=== PATIENT | female | born 1955 | race Caucasian/White ===

== ENCOUNTER → 2020-09-09 10:45 | Outpatient (BNVA) | payer MEDICARE, MEDICAID, SELFPAY | PROVIDERS: PCP Internal Medicine; Referring Provider Internal Medicine; Visit Provider Internal Medicine Endocrinology, Diabetes & Metabolism | DX: Z13.89 Encounter for screening for other disorder (principal) | CPT/HCPCS: Q3014 ==

== ENCOUNTER → 2020-12-20 09:26 | Outpatient (BNVA) | payer MEDICARE, MEDICAID, SELFPAY | PROVIDERS: PCP Internal Medicine; Visit Provider Internal Medicine Endocrinology, Diabetes & Metabolism | DX: Z13.89 Encounter for screening for other disorder (principal) | CPT/HCPCS: Q3014 ==

== ENCOUNTER 2021-01-05 08:03 | Outpatient (REF) | payer MEDICARE, MEDICAID, SELFPAY ==
[2021-01-05 10:17] LABS: Hematocrit 44.6 % (37-47); Hemoglobin 14.7 g/dl (12.0-16.0); Mean Corpuscular Hemoglobin 30.6 pg (27.0-33.0); Mean Corpuscular Volume 92.9 fL (80-98); Mean Platelet Volume 10.8 fL (9.4-12.3); Platelet Count 181 X10*3/uL (160-400); Red Cell Distribution Width 12.8 % (11.0-16.0); White Blood Count 5.5 X10*3/uL (4.8-10.8)
[2021-01-05 10:35] LABS: Estimated Average Glucose 151 mg/dL; Hemoglobin A1c % 6.9 %
[2021-01-05 10:49] LABS: Creatinine Urine 75.55 mg/dL; Microalbum/Creatinine Ratio Ur 9.2 ug/mg cr
[2021-01-05 10:57] LABS: Alanine Aminotransferase 38 U/L (0-31); Albumin Level 4.2 g/dL (3.5-5.0); Alkaline Phosphatase 102 U/L (39-117); Anion Gap 16 (12-20); Aspartate Amino Transferase 22 U/L (5-31); Bilirubin Total 0.4 mg/dL (0.0-1.0); Blood Urea Nitrogen 18 mg/dL (9-16); Calcium 8.8 mg/dL (8.4-10.2); Carbon Dioxide 25 mmol/L (22-29); Chloride 101 mmol/L (96-108); Cholesterol 175 mg/dL; Estimated Glomerular Filt Rate > 60; Glucose Fasting 141 mg/dL (60-99); HDL Cholesterol 53 mg/dL; LDL Cholesterol Calculated 98 mg/dl; Potassium 3.9 mmol/L (3.3-5.1); Sodium 138 mmol/L (135-145); Total Protein 6.7 g/dL (6.5-8.0); Triglycerides 120 mg/dL
[2021-01-05 11:40] LABS: Vitamin B12 466 pg/mL (200-900)
[2021-01-06 05:01] LABS: LDL Cholesterol Direct 104 mg/dL (<100)
== END 2021-01-05 08:04 | disposition home or self-care (01) ==
LOC: HO.10HDL 08:03
PROVIDERS: Visit Provider Internal Medicine Endocrinology, Diabetes & Metabolism
DX: E11.65 Type 2 diabetes mellitus with hyperglycemia (principal)
CPT/HCPCS: 36415; 80053; 80061; 82043; 82607; 83036; 83721; 84439; 84443; 85027

== ENCOUNTER → 2021-04-25 14:18 | Outpatient (BNVA) | payer MEDICARE, MEDICAID, SELFPAY | PROVIDERS: PCP Internal Medicine; Visit Provider Internal Medicine Endocrinology, Diabetes & Metabolism | DX: E11.65 Type 2 diabetes mellitus with hyperglycemia (principal); E11.42 Type 2 diabetes mellitus with diabetic polyneuropathy; E11.21 Type 2 diabetes mellitus with diabetic nephropathy; E03.9 Hypothyroidism, unspecified; E78.5 Hyperlipidemia, unspecified; E66.3 Overweight; Z79.4 Long term (current) use of insulin | CPT/HCPCS: 82947; 99212 ==

== ENCOUNTER → 2021-07-04 15:21 | Outpatient (BNVA) | payer MEDICARE, MEDICAID, SELFPAY | PROVIDERS: PCP Internal Medicine; Visit Provider Anesthesiology | DX: M47.816 Spondylosis without myelopathy or radiculopathy, lumbar region (principal); M46.1 Sacroiliitis, not elsewhere classified | CPT/HCPCS: 99212 ==

== ENCOUNTER → 2021-08-30 10:23 | Outpatient (BNVA) | payer MEDICARE, MEDICAID, SELFPAY | PROVIDERS: PCP Internal Medicine; Visit Provider Nurse Practitioner Gerontology | DX: E11.65 Type 2 diabetes mellitus with hyperglycemia (principal); E11.42 Type 2 diabetes mellitus with diabetic polyneuropathy; E11.21 Type 2 diabetes mellitus with diabetic nephropathy; E03.9 Hypothyroidism, unspecified; E78.5 Hyperlipidemia, unspecified; E66.3 Overweight; Z79.4 Long term (current) use of insulin | CPT/HCPCS: 82947; 83036; 99212 ==

== ENCOUNTER 2021-09-12 12:21 | Outpatient (REF) | payer MEDICARE, MEDICAID, SELFPAY ==
[2021-09-12 14:26] LABS: Alanine Aminotransferase 31 U/L (0-31); Albumin Level 4.5 g/dL (3.5-5.0); Alkaline Phosphatase 100 U/L (39-117); Anion Gap 13 (12-20); Aspartate Amino Transferase 23 U/L (5-31); Bilirubin Total 0.4 mg/dL (0.0-1.0); Blood Urea Nitrogen 15 mg/dL (9-16); Calcium 10.2 mg/dL (8.4-10.2); Carbon Dioxide 31 mmol/L (22-29); Chloride 102 mmol/L (96-108); Estimated Glomerular Filt Rate > 60; Glucose Random 141 mg/dL (60-115); Potassium 3.6 mmol/L (3.3-5.1); Sodium 142 mmol/L (135-145); Total Protein 7.4 g/dL (6.5-8.0)
== END 2021-09-12 12:22 | disposition home or self-care (01) ==
LOC: HO.LAB 12:21
PROVIDERS: PCP Internal Medicine; Visit Provider Nurse Practitioner Family
DX: M47.816 Spondylosis without myelopathy or radiculopathy, lumbar region (principal)
CPT/HCPCS: 36415; 80053; 99212

== ENCOUNTER → 2021-12-14 14:30 | Outpatient (BNVA) | payer MEDICARE, MEDICAID, SELFPAY | PROVIDERS: PCP Internal Medicine; Visit Provider Nurse Practitioner Gerontology | DX: E11.65 Type 2 diabetes mellitus with hyperglycemia (principal); E11.21 Type 2 diabetes mellitus with diabetic nephropathy; E11.42 Type 2 diabetes mellitus with diabetic polyneuropathy; E03.9 Hypothyroidism, unspecified; E78.5 Hyperlipidemia, unspecified; E66.3 Overweight; Z68.27 Body mass index [BMI] 27.0-27.9, adult; Z79.4 Long term (current) use of insulin; Z79.899 Other long term (current) drug therapy | CPT/HCPCS: 82947; 83036; 99212 ==

== ENCOUNTER 2022-09-15 08:25 | Outpatient (REF) | payer MEDICARE, MEDICAID, SELFPAY ==
[2022-09-15 12:20] LABS: Creatinine Urine 77.51 mg/dL; Microalbum/Creatinine Ratio Ur 11.6 ug/mg cr
[2022-09-15 13:33] LABS: Alanine Aminotransferase 31 U/L (0-31); Albumin Level 4.3 g/dL (3.5-5.0); Alkaline Phosphatase 89 U/L (39-117); Anion Gap 12 (12-20); Aspartate Amino Transferase 25 U/L (5-31); Bilirubin Total 0.3 mg/dL (0.0-1.0); Blood Urea Nitrogen 13 mg/dL (9-16); Calcium 9.1 mg/dL (8.4-10.2); Carbon Dioxide 28 mmol/L (22-29); Chloride 103 mmol/L (96-108); Cholesterol 149 mg/dL; Estimated Glomerular Filt Rate > 60; Free T4 (Free Thyroxine) 0.91 ng/dL (0.71-1.85); Glucose Fasting 139 mg/dL (60-99); Glucose Random 139 mg/dL (60-115); HDL Cholesterol 56 mg/dL; LDL Cholesterol Calculated 82 mg/dl; Potassium 3.8 mmol/L (3.3-5.1); Sodium 139 mmol/L (135-145); Thyroid Stimulating Hormone 0.43 uIU/mL (0.32-4.0); Total Protein 6.9 g/dL (6.5-8.0); Triglycerides 55 mg/dL
[2022-09-16 18:14] LABS: LDL Cholesterol Direct 78 mg/dL (<100)
== END 2022-09-15 08:26 | disposition home or self-care (01) ==
LOC: HO.HMGCLDS 08:25
PROVIDERS: Absent Provider Nurse Practitioner Family; PCP Internal Medicine; Visit Provider Nurse Practitioner Gerontology
DX: E11.42 Type 2 diabetes mellitus with diabetic polyneuropathy (principal); E11.65 Type 2 diabetes mellitus with hyperglycemia; M47.816 Spondylosis without myelopathy or radiculopathy, lumbar region
CPT/HCPCS: 36415; 80053; 80061; 82043; 83721; 84439; 84443

== ENCOUNTER → 2022-09-18 13:48 | Outpatient (BNVA) | payer MEDICARE, MEDICAID, SELFPAY | PROVIDERS: PCP Internal Medicine; Visit Provider Nurse Practitioner Family | DX: M47.816 Spondylosis without myelopathy or radiculopathy, lumbar region (principal); M79.641 Pain in right hand; M79.642 Pain in left hand; M25.50 Pain in unspecified joint; E03.9 Hypothyroidism, unspecified; Z79.899 Other long term (current) drug therapy | CPT/HCPCS: 99212 ==

== ENCOUNTER 2023-03-12 16:01 | Emergency (ER) | payer MEDICARE, MEDICAID, SELFPAY ==
--- NOTE | ~2023-03-12 | XR_ITS ---
EXAMINATION: Lumbar spine, sacrum and coccyx x-rays CLINICAL INFORMATION: Fall. Rule out fracture COMPARISON: Lumbar spine MRI January 2018 TECHNIQUE: 3 views of the lumbar spine and 3 views of the sacrum and coccyx FINDINGS: Lumbar spine: There is a moderate age-indeterminate T12 vertebral body compression fracture. This is new in the interval from 2018 exam. No other fracture. Normal disc spaces. Lower lumbar spine facet arthritis. Atherosclerotic disease. Sacrum and coccyx: No fracture or dislocation. Mild arthritis at the sacroiliac joints. XR/XR sacrum coccyx min 2V IMPRESSION: Lumbar spine: Moderate age indeterminate T12 vertebral body compression fracture. Degenerative changes. Sacrum and coccyx: Degenerative changes of the sacroiliac joints. No fracture.
--- NOTE | ~2023-03-12 | CT_ITS ---
EXAMINATION: CT HEAD WITHOUT CONTRAST CT CERVICAL SPINE WITHOUT CONTRAST CLINICAL INFORMATION: Fall. COMPARISON: Head CT dated 03/23/2017. TECHNIQUE: Contiguous axial imaging was performed from the skullbase to vertex without intravenous administration of contrast. Multidetector helical imaging was performed through the cervical spine. This CT examination was performed using dose optimization techniques as appropriate, variously including the following: *Automated exposure control *Adjustment of mA and/or kV according to patient size (this includes techniques or standardized protocols for targeted exams where dose is matched to indication/reason for exam; i.e. extremities or head) *Use of iterative reconstruction technique DLP: 949 mGy-cm. FINDINGS: HEAD: There is no evidence of acute intracranial hemorrhage or territorial infarction. No abnormal mass effect or midline shift is seen. Benitez to white matter differentiation is well preserved. No extra-axial fluid collections are identified. Mild chronic white matter microangiopathic changes noted. [id number] generalized parenchymal volume loss noted with concordant ex vacuo prominence of the ventricles. No evidence of hydrocephalus. The osseous structures and soft tissues are normal. The mastoid air cells are well aerated. Moderate mucosal thickening and fluid noted in the left sphenoid sinus. CERVICAL SPINE: No acute fracture or significant subluxation is identified in the cervical spine. There is severe disc space narrowing and bulky endplate spurring at the C4-C5 level. Exuberant left-sided facet arthrosis is visible at the C3-C4 and C4-C5 levels with severe left foraminal encroachment. Endplate spurring and facet arthrosis result in severe right foraminal narrowing at the C4-C5 and C5-C6 and C6-C7 levels. Generalized bony demineralization noted. The atlantoaxial articulation is normally maintained. The paraspinal soft tissues are normal. Subpleural scarring noted at the lung apices with mild emphysematous changes. CT/CT cervical spine wo IV con IMPRESSION: 1. No acute intracranial pathology. 2. No evidence of acute cervical spine traumatic injury. Multilevel cervical spondylosis with hypertrophic facet arthropathy and disc-osteophyte complexes, most significant at the C4-C5 level.
--- NOTE | ~2023-03-12 | XR_ITS ---
EXAMINATION: Lumbar spine, sacrum and coccyx x-rays CLINICAL INFORMATION: Fall. Rule out fracture COMPARISON: Lumbar spine MRI January 2018 TECHNIQUE: 3 views of the lumbar spine and 3 views of the sacrum and coccyx FINDINGS: Lumbar spine: There is a moderate age-indeterminate T12 vertebral body compression fracture. This is new in the interval from 2018 exam. No other fracture. Normal disc spaces. Lower lumbar spine facet arthritis. Atherosclerotic disease. Sacrum and coccyx: No fracture or dislocation. Mild arthritis at the sacroiliac joints. XR/XR lumbar spine 2-3V IMPRESSION: Lumbar spine: Moderate age indeterminate T12 vertebral body compression fracture. Degenerative changes. Sacrum and coccyx: Degenerative changes of the sacroiliac joints. No fracture.
[2023-03-12 16:05] VITALS: BP 130/72; PULSE 98; O2SAT 98
[2023-03-12 17:49] VITALS: BP 105/54; PULSE 85; RESP 16; TEMP 35.9; O2SAT 94; BMI 23.3
--- NOTE | 2023-03-12 17:50 | ED.FALL ---
HPI - Fall General Chief Complaint: Fall Stated Complaint: fall Time Seen by Provider: 03/13/23 01:01 Source: patient Mode of arrival: ambulatory Limitations: no limitations History of Present Illness HPI Narrative: Patient has history of chronic back pain depression diabetes apparently slipped and fell 3 days ago since then having more back pain also has history of T12 compression fracture stable no significant head injury no loss of consciousness patient has been having pain which is not getting better for last 3 days no radiation of pain to lower extremities no bladder or bowel involvement no weakness Related Data Home Medications Medication Instructions Recorded Confirmed allopurinol 300 mg tablet 300 mg PO DAILY 07/29/20 01/31/23 hydrochlorothiazide 12.5 mg tablet 12.5 mg PO DAILY 07/29/20 01/31/23 oxcarbazepine 300 mg tablet 600 mg PO DAILY 08/30/21 01/31/23 zolpidem 12.5 mg tablet,extended 12.5 mg PO 08/30/21 01/31/23 release,multiphase venlafaxine 75 mg capsule,extended 150 mg PO BEDTIME 09/18/22 01/31/23 release 24 hr quetiapine 25 mg tablet (Seroquel) 25 mg PO BEDTIME 01/31/23 01/31/23 Previous Rx's Medication Instructions Recorded pen needle, diabetic 32 gauge x #100 ea 05/17/22 (BD Mar 2nd Gen Pen Needle) FreeStyle Lite Strips (blood sugar #300 ea 09/08/22 diagnostic) empagliflozin 25 mg tablet 25 mg PO DAILY 90 days #90 tabs 02/19/23 (Jardiance) gabapentin 300 mg capsule 300 mg PO Q8H 90 days #270 caps 02/20/23 levothyroxine 88 mcg tablet 88 mcg PO DAILY #90 tabs 02/20/23 lisinopril 2.5 mg tablet 2.5 mg PO DAILY 90 days #90 tabs 02/20/23 dulaglutide 3 mg/0.5 mL 3 mg (0.5 mL) subcut QWEEK 90 days 02/28/23 subcutaneous pen injector #6.5 mL (Trulicity) baclofen 20 mg tablet 20 mg PO BID muscle spasm #180 tabs 03/05/23 insulin glargine 100 unit/mL (3 28 unit (0.28 mL) subcut ONCE 90 03/10/23 mL) subcutaneous pen days #25.2 mL rosuvastatin 40 mg tablet 40 mg PO DAILY 90 days #90 tabs 03/12/23 cyclobenzaprine 10 mg tablet 10 mg PO Q8H #20 tabs 03/13/23 tramadol 50 mg tablet 50 mg PO Q6H PRN pain #20 tabs 03/13/23 Allergies Allergy/AdvReac Type Severity Reaction Status Date / Time metformin [METFORMIN] Allergy Severe BLOATING,DIARRHEA, Verified 01/31/23 12:51 diarrhea Fluoxetine Allergy Intermediate Diarrhea Verified 01/31/23 12:51 saxagliptin [Onglyza] Allergy Intermediate Diarrhea Verified 01/31/23 12:51 sitagliptin [Janumet XR] Allergy Intermediate Diarrhea Verified 01/31/23 12:51 bee sting Allergy Intermediate Swelling Uncoded 01/31/23 12:51 Review of Systems Review of Systems: Yes all other systems are reviewed and are negative PMF Past Medical History Medical History Depression, major, recurrent, moderate Diabetes mellitus Diabetes type 2, uncontrolled Diabetic nephropathy associated with type 2 diabetes mellitus Diabetic neuropathy associated with type 2 diabetes mellitus Dyslipidemia Hypothyroidism halfway (current) use of insulin Overweight (BMI 25.0-29.9) Renal calculi Sacroiliitis Spondylosis of lumbar spine Surgical History Hx of section Family History Family History Father Cancer Mother Cancer Paternal Grandmother Diabetes Brother Mental health disorder Social History Social History Household Members: None Housing: Apartment Alcohol intake: current Alcohol intake frequency: does not drink Patient Tobacco Use Status: Former Tobacco user Cigarettes Per Day: 20 Years Smoked: 20 Smoked in Last 30 Days: No e-Cigarette/Vaping Use: Never Used Use of substances other than those prescribed or required for medical reasons: No Substance Use Type: Former Substance User and Marijuana Advance Directives: No Advance Directives Information Provided: Yes service: No Current occupational status: retired Cognitive needs: No Hearing needs: No Vision needs: Yes Physical Exam Vital Signs: Vital Signs: Last Vital Signs Temp 96.6 F L 03/12/23 17:49 Pulse 85 03/13/23 01:39 Resp 14 03/13/23 01:39 BP 120/63 03/13/23 01:39 Pulse Ox 94 03/12/23 17:49 O2 Del Method Room Air 03/12/23 17:49 BMI result Body Mass Index 23.3 Appearance: Alert. Oriented X3. No acute distress. Eyes: PERRLA, No Nystagmus HEENT: Pharynx normal. Oral Mucosa moist atraumatic normocephalic Neck: Normal inspection. Neck supple. No midline tenderness CVS: Normal heart rate and rhythm. Pulses normal. Respiratory: No respiratory distress. Equal air entry bilateral, no wheezing/rales/rhonchi Abdomen: Soft and nontender. Bowel sounds are present, no mass palpable, no CVA tenderness Skin: Skin warm and dry. Normal skin color. Normal skin turgor. Extremities: No lower extremity edema. No calf tenderness back: Diffuse tenderness lumbar spine and sacroiliac area no focal spinal tenderness sacral sensations intact SLR negative bilaterally Neuro: Oriented X 3. No motor deficit. No sensory deficit.No cerebellar signs , cranial nerves II-XII intact Course Course Course Narrative: Patient complains of low back pain after a fall 3 days ago, she slipped on the wet floor , she tried to stand up and thinks she passed out, she did hit her head, she is not sure if she passed out, her main complaint is neck pain and back pain Her main complaint now is pain she has no chest pain no palpitations Lumbar spine x-rays ordered, cervical spine and head CT, as she is not sure if she passed out EKG and labs are ordered This is rapid medical exam in triage, pending full evaluation by provider in the department Medications Administered Discontinued Medications Generic Name Dose Route Start Last Admin Trade Name Freq PRN Reason Stop Dose Admin Cyclobenzaprine HCl 10 mg 03/13/23 01:25 03/13/23 01:43 Cyclobenzaprine Hcl 10 Mg Tablet PO 03/13/23 01:26 10 mg ONCE ONE Administration Hydromorphone HCl 1 mg 03/13/23 01:25 03/13/23 01:43 Hydromorphone Hcl 2 Mg Tablet PO 03/13/23 01:26 1 mg ONCE ONE Administration Medical Decision Making Medical Decision Making [facility] Narrative: Patient's CT scan of the head and C-spine negative x-ray of lumbar spine and sacroiliac area also negative will give her pain medication and muscle relaxants patient does have old compression fracture T2 Lab Data [facility] Lab Attestation statement: I reviewed the patient's lab results. 03/12/23 19:20 03/12/23 19:20 Labs: Lab Results 03/12/23 03/12/23 03/12/23 Range/Units 19:20 19:20 19:20 WBC 5.8 (4.8-10.8) X10*3/uL RBC 5.32 (4.20-5.50) X10*6/uL Hgb 15.6 (12.0-16.0) g/dl Hct 48.1 H (37.0-47.0) % MCV 90.4 (80.0-98.0) fL MCH 29.3 (27.0-33.0) pg MCHC 32.4 (31.0-35.0) g/dl RDW 13.0 (11.0-16.0) % Plt Count 201 (160-400) X10*3/uL MPV 9.9 (9.4-12.3) fL Immature Gran % (Auto) 0.3 (0.0-0.4) % Neut % (Auto) 63.7 (45-73) % Lymph % (Auto) 23.5 (20-40) % Walsh % (Auto) 10.0 (2-11) % Eos % (Auto) 2.2 (0-4) % Baso % (Auto) 0.3 (0-2) % Lymph # (Auto) 1.4 (1.2-4.9) X10*3/uL Walsh # (Auto) 0.6 (0.1-1.2) X10*3/uL Eos # (Auto) 0.1 (0.0-0.4) X10*3/uL Baso # (Auto) 0.0 (0.0-0.2) X10*3/uL Abs Immat Gran (auto) 0.02 (0.00-0.03) X10*3/uL Absolute Neuts (auto) 3.7 (2.0-8.3) x10*3/uL Absolute Nucleated RBC 0.000 (0.0-0.012) X10*3/uL Nucleated RBC % (auto) 0.0 (0.0-0.2) /100WBC Sodium 143 (135-145) mmol/L Potassium 4.2 (3.3-5.1) mmol/L Chloride 103 (96-108) mmol/L Carbon Dioxide 32 H (22-29) mmol/L Anion Gap 12 (12-20) BUN 15 (9-16) mg/dL Creatinine 0.68 (0.5-1.4) mg/dL Estim Creat Clear Calc 72.2 Estimated GFR > 60 Random Glucose 128 H (60-115) mg/dL Calcium 10.2 D (8.4-10.2) mg/dL Troponin I High Sens < 2.7 (<3.5-17.0) ng/L Discharge Plan Discharge Clinical Impression: Back pain due to injury Patient Disposition: Home, Self-Care Instructions: Acute Low Back Pain (ED) Additional Instructions: No fracture in lumbar and sacrum seen Pain medication as prescribed Follow with PCP if not better Prescriptions: New cyclobenzaprine 10 mg tablet 10 mg PO Q8H Qty: 20 0RF tramadol 50 mg tablet 50 mg PO Q6H PRN (Reason: pain) Qty: 20 0RF No Action (DME) pen needle, diabetic [BD Mar 2nd Gen Pen Needle] 32 gauge x 5/32 needle See Rx Instructions .MEDSUPPLY Qty: 100 4RF Rx Instructions: once a day (DME) FreeStyle Lite Strips Strip See Rx Instructions .ROUTE .MEDSUPPLY Qty: 300 2RF Rx Instructions: 3 times a day Jardiance 25 mg tablet 25 mg PO DAILY 90 Days Qty: 90 0RF levothyroxine 88 mcg tablet 88 mcg PO DAILY Qty: 90 0RF gabapentin 300 mg capsule 300 mg PO Q8H 90 Days Qty: 270 0RF lisinopril 2.5 mg tablet 2.5 mg PO DAILY 90 Days Qty: 90 0RF Trulicity 3 mg/0.5 mL pen injector 3 mg subcut QWEEK 90 Days Qty: 6.5 1RF Rx Instructions: FUTURE REFILLS WITH PCP. baclofen 20 mg tablet 20 mg PO BID Qty: 180 0RF insulin glargine 100 unit/mL (3 mL) insulin pen 28 unit subcut ONCE 90 Days Qty: 25.2 3RF rosuvastatin 40 mg tablet 40 mg PO DAILY 90 Days Qty: 90 1RF quetiapine [Seroquel] 25 mg tablet 25 mg PO BEDTIME hydrochlorothiazide 12.5 mg tablet 12.5 mg PO DAILY allopurinol 300 mg tablet 300 mg PO DAILY zolpidem 12.5 mg tablet,ext release multiphase 12.5 mg PO oxcarbazepine 300 mg tablet 600 mg PO DAILY venlafaxine 75 mg capsule,extended release 24hr 150 mg PO BEDTIME
--- NOTE | 2023-03-12 17:56 | ECG_ITS ---
Test Reason : BACK PAIN Blood Pressure : / mmHG Vent. Rate : 078 BPM Atrial Rate : 078 BPM P-R Int : 172 ms QRS Dur : 096 ms QT Int : 384 ms P-R-T Axes : 056 015 060 degrees QTc Int : 437 ms Normal sinus rhythm Normal ECG When compared with ECG of 28-MAR-2017 12:50, No significant change was found Referred By: Jovani Pedroza Electronically Signed By:Pedrito Overton
[2023-03-12 19:27] LABS: MANUAL DIFF FLAG NO
[2023-03-12 19:29] LABS: Basophils Percent Auto 0.3 % (0-2); Eosinophils Absolute Auto 0.1 X10*3/uL (0.0-0.4); Eosinophils Percent Auto 2.2 % (0-4); Hematocrit 48.1 % (37.0-47.0); Hemoglobin 15.6 g/dl (12.0-16.0); Imm Gran Abs Auto 0.02 X10*3/uL (0.00-0.03); Imm Gran Pct Auto 0.3 % (0.0-0.4); Lymphocytes Absolute Auto 1.4 X10*3/uL (1.2-4.9); Lymphocytes Percent Auto 23.5 % (20-40); Mean Corpuscular HGB Conc 32.4 g/dl (31.0-35.0); Mean Corpuscular Hemoglobin 29.3 pg (27.0-33.0); Mean Corpuscular Volume 90.4 fL (80.0-98.0); Mean Platelet Volume 9.9 fL (9.4-12.3); Monocytes Absolute Auto 0.6 X10*3/uL (0.1-1.2); Neutrophils Absolute Auto 3.7 x10*3/uL (2.0-8.3); Neutrophils Percent Auto 63.7 % (45-73); Platelet Count 201 X10*3/uL (160-400); Red Blood Count 5.32 X10*6/uL (4.20-5.50); White Blood Count 5.8 X10*3/uL (4.8-10.8)
[2023-03-12 19:53] LABS: Anion Gap 12 (12-20); Blood Urea Nitrogen 15 mg/dL (9-16); Calcium 10.2 mg/dL (8.4-10.2); Carbon Dioxide 32 mmol/L (22-29); Chloride 103 mmol/L (96-108); Creatinine Clr Calc Pharmacy 72.2; Estimated Glomerular Filt Rate > 60; Glucose Random 128 mg/dL (60-115); Potassium 4.2 mmol/L (3.3-5.1); Sodium 143 mmol/L (135-145)
[2023-03-12 20:19] LABS: Troponin-I High Sensitivity < 2.7 ng/L (<3.5-17.0)
[2023-03-13 01:39] VITALS: BP 120/63; PULSE 85; RESP 14
[2023-03-13] MEDS: Cyclobenzaprine HCl 10 MG TABLET PO (01:43)
[2023-03-13] MEDS: HYDROmorphone HCl 2 MG TABLET 1 MG PO (01:43)
[2023-03-13 03:33] VITALS: BP 136/67; PULSE 78; RESP 18; TEMP 36.3; O2SAT 94
[2023-03-13 04:56] LABS: Appearance Urine Clear; Color Urine Yellow; Glucose Urine UA >=1000 mg/dL (Negative); Leukocyte Esterase Urine Negative (Negative); Nitrite Urine Negative (Negative); PH 5.5 (5.0-9.0); Specific Gravity - Urine >= 1.030 (1.005-1.025); UMIC TRIGGER UACC YES; Urine Blood Negative (Negative); Urine Ketones Negative (Negative); Urine Protein Negative (Neg-Trace)
[2023-03-13 05:01] LABS: Bacteria Urine None Seen (None Seen); Hyaline Casts Urine 0-2 /LPF (0-2); RBC Urine 0-2 /HPF (0-2); Squamous Epithelial Cell Urine 0-2 /HPF (0-2); WBC Urine 0-5 /HPF (0-5)
[2023-03-13] MEDS: Acetaminophen 325 MG TABLET 975 MG PO (05:48)
== END 2023-03-13 06:00 | disposition home or self-care (01) ==
PROVIDERS: Emergency Medicine Emergency Medical Services; Physician Assistant Medical; Emergency Provider Internal Medicine; PCP Internal Medicine
DX: G89.11 Acute pain due to trauma (principal); M54.50 Low back pain, unspecified; E11.9 Type 2 diabetes mellitus without complications; Z79.4 Long term (current) use of insulin
CPT/HCPCS: 36415; 70450; 72100; 72125; 72220; 80048; 81001; 84484; 85025; 93005; 99284; 99285

== ENCOUNTER 2023-09-18 11:54 | Outpatient (REF) | payer MEDICARE, MEDICAID, SELFPAY ==
[2023-09-18 13:12] LABS: C Reactive Protein 0.13 mg/dL (< or = 0.50)
[2023-09-18 13:20] LABS: Erythrocyte Sedimentation Rate 21 MM/HR (0-20)
== END 2023-09-18 11:55 | disposition home or self-care (01) ==
LOC: HO.LAB 11:54
PROVIDERS: Nurse Practitioner Family; PCP Internal Medicine; Visit Provider Internal Medicine
DX: M25.50 Pain in unspecified joint (principal)
CPT/HCPCS: 36415; 85652; 86140; 99212

== ENCOUNTER 2023-09-18 13:42 | Outpatient (AMB) | payer MEDICARE, MEDICAID, SELFPAY ==
--- NOTE | 2023-09-18 13:45 | A.OFFVIS_ITS ---
Intake Vital Signs 09/18/23 13:53 Height 5 ft 5 in Weight 150 lb 12.739 oz BMI 25.1 BP 118/62 Blood Pressure Location Rt brachial Position Sitting Pulse 64 Pulse Source Pulse Oximeter Temp 97 F Temp Source Skin Pulse Oximetry (%) 96 Oxygen Delivery Method Room Air Intake Visit Reasons: Back pain Intake Note: Patient last seen 09/18/22, presents today for yearly follow up and test results. Reportsmultiple joint pains. Senior Regulatory Affairs Specialist Required: No Accompanied by: Self / Same As Patient Allergies metformin [METFORMIN] Allergy (Severe, Verified 09/18/23 13:46) BLOATING,DIARRHEA, diarrhea Fluoxetine Allergy (Intermediate, Verified 09/18/23 13:46) Diarrhea saxagliptin [Onglyza] Allergy (Intermediate, Verified 09/18/23 13:46) Diarrhea sitagliptin [Janumet XR] Allergy (Intermediate, Verified 09/18/23 13:46) Diarrhea bee sting Allergy (Intermediate, Uncoded 09/18/23 13:46) Swelling Medication List - Last Reconciled 09/18/23 by Radha Garcia MD allopurinol 300 mg PO DAILY baclofen 20 mg PO BID blood sugar diagnostic (FreeStyle Lite Strips) 3 TIMES A DAY dulaglutide (Trulicity) 3 mg (0.5 mL) subcut QWEEK 90 days empagliflozin (Jardiance) 25 mg PO DAILY 90 days gabapentin 300 mg PO Q8H 90 days hydrochlorothiazide 12.5 mg PO DAILY insulin degludec 28 units (0.14 mL) subcut BEDTIME 90 days insulin glargine 28 units (0.28 mL) subcut ONCE 90 days levothyroxine 88 mcg PO DAILY lisinopril 2.5 mg PO DAILY 90 days oxcarbazepine 600 mg PO DAILY pen needle, diabetic (BD Mar 2nd Gen Pen Needle) once a day quetiapine (Seroquel) 25 mg PO BEDTIME rosuvastatin 40 mg PO DAILY 90 days venlafaxine ER 150 mg PO BEDTIME zolpidem ER 12.5 mg PO HPI HPI Comments History of Present Illness Details This is a 68-year-old female with generalized osteoarthritis who presents for follow-up. She was last seen by Rika Mckeon September/2022. She states that she continues to have diffuse pain, everywhere, in her back, knees, hands. She stated that she fell and had a spine fracture earlier this year. She states that she does take baclofen for her back pain. She mentions that when she ran out she did feel significant back pain coming back. She not recall ever being on anti resorptive agents. She states that she has multiple dental problems but is not sure whether she has dental coverage [facility] Medical History Sacroiliitis Spondylosis of lumbar spine Depression, major, recurrent, moderate Renal calculi Overweight (BMI 25.0-29.9) Dyslipidemia Diabetic nephropathy associated with type 2 diabetes mellitus Diabetic neuropathy associated with type 2 diabetes mellitus residential (current) use of insulin Diabetes type 2, uncontrolled Diabetes mellitus Hypothyroidism Surgical History Hx of section Family History Father Cancer Mother Cancer Paternal Grandmother Diabetes Brother Mental health disorder Social History Household Members: None Housing: Apartment Alcohol intake: current Alcohol intake frequency: does not drink Patient Tobacco Use Status: Former Tobacco user Cigarettes Per Day: 20 Years Smoked: 20 e-Cigarette/Vaping Use: Never Used Substance Use Type: Former Substance User and Marijuana service: No Current occupational status: retired Cognitive needs: No Hearing needs: No Vision needs: Yes Review of Systems [facility] [place] Reports back pain and Reports arthralgias Physical Exam Vital Signs: Last Vital Signs Temp 97 F 09/18/23 13:53 Pulse 64 09/18/23 13:53 BP 118/62 09/18/23 13:53 Pulse Ox 96 09/18/23 13:53 Oxygen Delivery Method Room Air 09/18/23 13:53 BMI result Body Mass Index 25.1 Const General: cooperative, healthy appearing and comfortable Nutritional Appearance: average body habitus Orientation/consciousness: patient oriented x3 Limitations: no limitations HEENT Other: Dental caries Head: Yes normocephalic and Yes atraumatic Mouth: moist mucous membranes Teeth and gingiva: caries Resp Effort & Inspection: normal respiratory effort and able to speak in complete sentences Auscultation: clear to auscultation bilaterally Cardio Rate: regular rate Rhythm: regular rhythm Skin General skin exam: no rashes or lesions noted Neuro General: patient oriented x3 Extrem Other: Osteoarthritic changes of both hands with no active synovitis Assessment & Plan Assessment & Plan (1) T12 compression fracture: Code(s): S22.080A - Wedge compression fracture of T11-T12 vertebra, initial encounter for closed fracture Qualifiers: Encounter type: initial encounter Qualified Code(s): S22.080A - Wedge compression fracture of T11-T12 vertebra, initial encounter for closed fracture Plan: This is a 68-year-old female with generalized osteoarthritis who presents for follow-up. This year patient was found to have a T12 compression fracture. Patient likely has underlying osteoporosis. She reached menopause at age 39. Will order a bone density scan to establish a baseline bone density. Patient has dental caries and I suggested evaluation by a dentist. She states that she is not sure she has dental coverage. Patient takes baclofen regularly twice a day which helps her back pain. She states that she does have some balance problems. She attributes it to her polypharmacy. I suggested holding baclofen for a few days monitoring her balance. Plan I spent 26 minutes reviewing patient's chart, evaluating patient, ordering diagnostic workup, counseling patient and documenting in the chart Orders: Orders XR DEXA axial skeleton Today M81.0 - Age-related osteoporosis without current pathological fracture, S22.080A - Wedge compression fracture of T11-T12 vertebra, initial encounter for closed fracture Coding Level of Care Code Est Pt Level 4 (35208) Diagnoses Compression fracture of T12 vertebra, initial encounter S22.080A Encounter type: initial encounter
[2023-09-18 13:53] VITALS: BP 118/62; PULSE 64; TEMP 36.1; O2SAT 96; BMI 25.1
== END 2023-09-18 14:27 | disposition home or self-care (01) ==
PROVIDERS: PCP Internal Medicine; Visit Provider Student in an Organized Health Care Education/Training Program
DX: S22.080A Wedge compression fracture of T11-T12 vertebra, initial encounter for closed fracture (principal)
CPT/HCPCS: 99214

== ENCOUNTER 2023-10-19 10:57 | Outpatient (REF) | payer MEDICARE, MEDICAID, SELFPAY ==
--- NOTE | ~2023-10-19 | MM_ITS ---
EXAMINATION: BONE DENSITOMETRY CLINICAL INDICATION: Wedge compression fracture of T11-T12 vertebrae, initial encounter. COMPARISON: This is the patient's baseline examination. TECHNIQUE: Using a [employer] DXA System (software version: 13.1) manufactured by [employer], dual-energy x-ray absorptiometry was performed of the lumbar spine and left hip. The images are of good technical quality. Summary results are attached. FINDINGS: LEFT FEMUR, NECK: BMD 0.805 g/cm2, Z-score -0.1, T-score -1.7, osteopenia. LEFT FEMUR, TOTAL: BMD 0.769 g/cm2, Z-score -0.6, T-score -1.9, osteopenia. AP SPINE L1-L3 (excluding L4): The data of L1-L4 has been changed to exclude the L4 vertebral body, because degenerative sclerosis at this level may cause overestimation of lumbar spine density. BMD 0.959 g/cm2, Z-score -0.2, T-score -1.8, osteopenia. IDENTIFIED RISK FACTORS: Early menopause, secondary osteoporosis, height loss, history of fracture (adult), recurrent falls, rheumatoid arthritis. HISTORY OF FRACTURE: Spine. MEDICATIONS: Calcium supplements or multivitamin, vitamin D. MM/XR DEXA axial skeleton IMPRESSION: 1. DIAGNOSIS: Osteopenia based on the lowest T-score value of -1.9 in the total femur applying World Health Organization criteria. 2. 10-YEAR FRACTURE RISK PREDICTION, FRAX: Major osteoporotic fracture (clinical spine, forearm, hip or shoulder) 21.1%. Hip fracture 3.4%. 3. Treatment Recommendations: NOF guidelines recommend consideration for treatment in postmenopausal women and men age 50 and older presenting with the following: -A hip or vertebral (clinical or morphometric) fracture. -T-score less than or equal to -2.5 at the femoral neck or spine after appropriate evaluation to exclude secondary causes. -Low bone mass at the hip or spine and a 10-year fracture probability by FRAX of greater than or equal to 3% for hip fracture or greater than or equal to 20% for major osteoporotic fracture based on the [place] adapted WHO algorithm. 4. Other Recommendations: All treatment decisions require clinical judgment and consideration of individual patient factors, including patient preferences, comorbidities, previous drug use, risk factors not captured in the FRAX model (e.g. frailty, falls, vitamin D deficiency, increased bone turnover, interval significant decline in bone density) and possible under or overestimation of fracture risk by FRAX. Additional medical evaluation for secondary cause of low bone mineral density may be appropriate. FUTURE SCAN RECOMMENDATION: People with diagnosed cases of osteoporosis or at high risk for fracture should have regular bone mineral density tests. For patients eligible for Medicare, routine testing is allowed once every 2 years. The testing frequency can be increased to one year for patients who have rapidly progressing disease, those who are receiving or discontinuing medical therapy to restore bone mass, or have additional risk factors.
== END 2023-10-19 10:58 | disposition home or self-care (01) ==
LOC: HO.MAMMO 10:57
PROVIDERS: PCP Internal Medicine; Visit Provider Student in an Organized Health Care Education/Training Program
DX: S22.080A Wedge compression fracture of T11-T12 vertebra, initial encounter for closed fracture (principal); M81.0 Age-related osteoporosis without current pathological fracture; X58.XXXA Exposure to other specified factors, initial encounter; Y93.9 Activity, unspecified; Y92.9 Unspecified place or not applicable; Y99.9 Unspecified external cause status
CPT/HCPCS: 77080

== ENCOUNTER 2023-11-26 10:43 | Outpatient (REF) | payer MEDICARE, MEDICAID, SELFPAY ==
[2023-11-26 11:54] LABS: Cholesterol 170 mg/dL (<200); HDL Cholesterol 66 mg/dL (>40); LDL Cholesterol Calculated 93 mg/dL (<100); Triglycerides 56 mg/dL (<150)
[2023-11-26 12:03] LABS: Creatinine Urine 48.52 mg/dL; Microalbum/Creatinine Ratio Ur 22.6 ug/mg cr (<30)
[2023-11-26 12:10] LABS: Free T4 (Free Thyroxine) 0.95 ng/dL (0.71-1.85); Thyroid Stimulating Hormone 0.48 uIU/mL (0.32-4.0)
== END 2023-11-26 10:44 | disposition home or self-care (01) ==
LOC: HO.LAB 10:43
PROVIDERS: PCP Internal Medicine; Visit Provider Internal Medicine Endocrinology, Diabetes & Metabolism
DX: E11.40 Type 2 diabetes mellitus with diabetic neuropathy, unspecified (principal); E11.21 Type 2 diabetes mellitus with diabetic nephropathy; E11.65 Type 2 diabetes mellitus with hyperglycemia; E03.9 Hypothyroidism, unspecified; E78.5 Hyperlipidemia, unspecified; F33.1 Major depressive disorder, recurrent, moderate; Z79.4 Long term (current) use of insulin
CPT/HCPCS: 36415; 80061; 82043; 82570; 84439; 84443

== ENCOUNTER → 2023-11-28 13:48 | Outpatient (BNVA) | payer MEDICARE, MEDICAID, SELFPAY | PROVIDERS: PCP Internal Medicine; Visit Provider Internal Medicine Endocrinology, Diabetes & Metabolism | DX: E11.65 Type 2 diabetes mellitus with hyperglycemia (principal); E03.9 Hypothyroidism, unspecified | CPT/HCPCS: 82947; 83036; 99212 ==

== ENCOUNTER 2023-12-26 12:21 | Outpatient (AMB) | payer MEDICARE, MEDICAID, SELFPAY ==
--- NOTE | 2023-12-26 12:25 | MHC.PC.OV ---
Vital Signs 12/26/23 12:26 Height 5 ft 5 in Weight 152 lb 6 oz BMI 25.4 BP 122/68 Blood Pressure Location Lt brachial Position Sitting Pulse 86 Pulse Source Pulse Oximeter Pulse Oximetry (%) 97 Oxygen Delivery Method Room Air Intake Visit Reasons: followup meds Allergies metformin [METFORMIN] Allergy (Severe, Verified 12/26/23 12:28) BLOATING,DIARRHEA, diarrhea Fluoxetine Allergy (Intermediate, Verified 12/26/23 12:28) Diarrhea saxagliptin [Onglyza] Allergy (Intermediate, Verified 12/26/23 12:28) Diarrhea sitagliptin [Janumet XR] Allergy (Intermediate, Verified 12/26/23 12:28) Diarrhea bee sting Allergy (Intermediate, Uncoded 11/28/23 14:03) Swelling Medication List - Last Reconciled 12/26/23 by Sen Shukla MD allopurinol 300 mg PO DAILY baclofen 20 mg PO BEDTIME blood sugar diagnostic (FreeStyle Lite Strips) 3 TIMES A DAY dulaglutide (Trulicity) 3 mg (0.5 mL) subcut QWEEK 90 days empagliflozin (Jardiance) 25 mg PO DAILY 90 days gabapentin 300 mg PO Q8H 90 days hydrochlorothiazide 12.5 mg PO DAILY insulin degludec 28 units (0.14 mL) subcut BEDTIME 90 days insulin glargine 28 units (0.28 mL) subcut ONCE 90 days levothyroxine 88 mcg PO DAILY lisinopril 2.5 mg PO DAILY 90 days oxcarbazepine 600 mg PO DAILY pen needle, diabetic (BD Mar 2nd Gen Pen Needle) once a day rosuvastatin 40 mg PO DAILY 90 days venlafaxine ER 150 mg PO BEDTIME zolpidem ER 12.5 mg PO Tobacco use date assessed: 12/26/23 Fall risk assessment: 2 + Falls in past year Last assessed Fall Risk: 12/26/23 Dental Screening Dental Screen Date: 12/26/23 Did you have a dental visit in the last 12 months?: No Did you have a dental problem in the last 6 months where you did not have access to dental care?: No Was dental information given to patient?: No HPI followup meds HPI Details Patient was last seen April 2023 she is taking number of medications from different providers Nephrology for Bp management Dr Severino for diabetes Dr Covarrubias Rhumatology [facility] [place] Baclofen as needed is from them she is seeing Psych for Gabapentine and other depression meds only meds from PCP office is Rosuvastatin and Levothyroixne she is due for labs f/u 6 M [facility] Medical History Sacroiliitis Spondylosis of lumbar spine Depression, major, recurrent, moderate Renal calculi Overweight (BMI 25.0-29.9) Dyslipidemia Diabetic nephropathy associated with type 2 diabetes mellitus Diabetic neuropathy associated with type 2 diabetes mellitus 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 Diabetes type 2, uncontrolled Diabetes mellitus Hypothyroidism Surgical History Hx of section Family History Father Cancer Mother Cancer Paternal Grandmother Diabetes Brother Mental health disorder Social History Household Members: None Housing: Apartment Alcohol intake: current Alcohol intake frequency: does not drink Patient Tobacco Use Status: Former Tobacco user Cigarettes Per Day: 20 Years Smoked: 20 e-Cigarette/Vaping Use: Never Used Substance Use Type: Former Substance User and Marijuana service: No Current occupational status: retired Cognitive needs: No Hearing needs: No Vision needs: Yes Questionnaire Thrive Questionnaire Date Thrive assessed: 01/31/23 AUDIT C Alcohol Use Questionnaire (AUDIT-C) 1. How often do you have a drink containing alcohol?: Never 3. How often do you have six or more drinks on one occasion?: Never Total Score: 0 Score Reviewed/Action Taken: Yes PAULO-7 AMB Questionnaire PAULO-7 Date PAULO - 7 assessed: 01/31/23 Source: Developed by Drs. Sina May, Janeth Rincon, Jomar Wilson and colleagues, with an educational yumi from [employer]. Review of Systems Const Denies chills and Denies fever(s) ENT Denies epistaxis and Denies nasal discharge Card Denies chest pain Resp Denies chest congestion, Denies cough and Denies hemoptysis GI Denies diarrhea and Denies nausea Skin/Breast Denies rash Neuro Reports no additional complaints Psych Reports no additional complaints Endo Reports no additional complaints Physical exam (Primary Care) Vital Signs: Last Vital Signs Pulse 86 12/26/23 12:26 BP 122/68 12/26/23 12:26 Pulse Ox 97 12/26/23 12:26 Oxygen Delivery Method Room Air 12/26/23 12:26 BMI result Body Mass Index 25.4 Tobacco/Smoking Status: Tobacco use Status Tobacco use date assessed 12/26/23 12/26/23 12:32 Patient Tobacco Use Status Former Tobacco user 12/26/23 12:26 e-Cigarette/Vaping Use Never Used 12/26/23 12:26 Thrive Assessment: Date of Thrive Assessment Date Thrive assessed 01/31/23 12/26/23 12:26 Const General: cooperative, comfortable and no acute distress Orientation/consciousness: patient oriented x3 HENMT Head: Yes normocephalic Eyes General: appearance normal, both eyes and all related structures Neck Neck: Yes supple Resp Effort & Inspection: normal respiratory effort, no cough and no stridor Cardio Rhythm: regular rhythm Heart sounds: S1 normal heart sound present and S2 normal heart sound present Skin General skin exam: turgor normal Neuro General: patient oriented x3, tone normal and moves all extremities Extrem Right lower extremity: no edema Left lower extremity: no edema Assessment and Plan Assessment & Plan (1) Hypothyroidism: Code(s): E03.9 - Hypothyroidism, unspecified Qualifiers: Hypothyroidism type: acquired Qualified Code(s): E03.9 - Hypothyroidism, unspecified (2) Lipid disorder: Code(s): E78.9 - Disorder of lipoprotein metabolism, unspecified Plan Patient was last seen April 2023 she is taking number of medications from different providers Nephrology for Bp management Dr Severino for diabetes Dr Covarrubias Rhumatology [facility] [place] , Baclofen as needed is from them she is seeing Psych for Gabapentine and other depression meds only meds from PCP office is Rosuvastatin and Levothyroixne she is due for labs f/u 6 M Orders: Orders Complete Blood Count Auto Diff 5 Months E03.9 - Hypothyroidism, unspecified, E78.9 - Disorder of lipoprotein metabolism, unspecified Comprehensive Met. Panel 5 Months E03.9 - Hypothyroidism, unspecified, E78.9 - Disorder of lipoprotein metabolism, unspecified LDL Cholesterol Direct 5 Months E03.9 - Hypothyroidism, unspecified, E78.9 - Disorder of lipoprotein metabolism, unspecified TSH reflex Free T4 5 Months E03.9 - Hypothyroidism, unspecified, E78.9 - Disorder of lipoprotein metabolism, unspecified TSH reflex Free T4 Today E03.9 - Hypothyroidism, unspecified, E78.9 - Disorder of lipoprotein metabolism, unspecified Comprehensive Met. Panel Today E03.9 - Hypothyroidism, unspecified, E78.9 - Disorder of lipoprotein metabolism, unspecified LDL Cholesterol Direct Today E03.9 - Hypothyroidism, unspecified, E78.9 - Disorder of lipoprotein metabolism, unspecified Medications: Changed From baclofen 20 mg PO DAILY 90 tabs 0RF for muscle spasm To baclofen 20 mg PO BEDTIME Refilled levothyroxine 88 mcg PO DAILY 90 tabs 1RF E03.9 - Hypothyroidism, unspecified rosuvastatin 40 mg PO DAILY 90 tabs 1RF 90 days E78.5 - Hyperlipidemia, unspecified Coding Level of Care Code Est Pt Level 3 (97841) Diagnoses Acquired hypothyroidism E03.9 Hypothyroidism type: acquired Lipid disorder E78.9
[2023-12-26 12:26] VITALS: BP 122/68; PULSE 86; O2SAT 97; BMI 25.4
== END 2023-12-26 12:57 | disposition home or self-care (01) ==
PROVIDERS: PCP Internal Medicine; Visit Provider Internal Medicine
DX: E03.9 Hypothyroidism, unspecified (principal); E78.9 Disorder of lipoprotein metabolism, unspecified
CPT/HCPCS: 99213

== ENCOUNTER 2023-12-26 13:00 | Outpatient (REF) | payer MEDICARE, MEDICAID, SELFPAY ==
[2023-12-26 16:52] LABS: Alanine Aminotransferase 26 U/L (0-31); Alkaline Phosphatase 87 U/L (39-117); Anion Gap 13 (12-20); Aspartate Amino Transferase 20 U/L (5-31); Bilirubin Total 0.2 mg/dL (0.0-1.0); Blood Urea Nitrogen 11 mg/dL (9-16); Calcium 9.3 mg/dL (8.4-10.2); Carbon Dioxide 28 mmol/L (22-29); Chloride 103 mmol/L (96-108); Estimated Glomerular Filt Rate > 60; Glucose Random 130 mg/dL (60-115); Potassium 3.6 mmol/L (3.3-5.1); Sodium 140 mmol/L (135-145)
[2023-12-26 17:07] LABS: TSH reflex Free T4 0.52 uIU/mL (0.32-4.0)
[2023-12-28 16:08] LABS: LDL Cholesterol Direct 109 mg/dL (<100)
== END 2023-12-26 13:01 | disposition home or self-care (01) ==
LOC: HO.HMGCLDS 13:00
PROVIDERS: PCP Internal Medicine; Visit Provider Internal Medicine
DX: E03.9 Hypothyroidism, unspecified (principal); E78.9 Disorder of lipoprotein metabolism, unspecified
CPT/HCPCS: 36415; 80053; 83721; 84443

== ENCOUNTER 2024-04-02 13:16 | Outpatient (AMB) | payer MEDICARE, MEDICAID, SELFPAY ==
--- NOTE | 2024-04-02 14:05 | A.OFFVIS_ITS ---
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 Hand Required: No Accompanied by: Self / Same As Patient Allergies metformin [METFORMIN] Allergy (Severe, Verified 04/02/24 14:15) BLOATING,DIARRHEA, diarrhea Fluoxetine Allergy (Intermediate, Verified 04/02/24 14:15) Diarrhea saxagliptin [Onglyza] Allergy (Intermediate, Verified 04/02/24 14:15) Diarrhea sitagliptin [Janumet XR] Allergy (Intermediate, Verified 04/02/24 14:15) Diarrhea bee sting Allergy (Intermediate, Uncoded 04/02/24 14:15) Swelling HPI Comprehensive Diabetes Asmnt Most Recent Diabetes Results: Microalb/Creat Ratio 22.6 ug/mg cr (<30) 11/26/23 Cholesterol 170 mg/dL (<200) 11/26/23 HDL Cholesterol 66 mg/dL (>40) 11/26/23 Triglycerides 56 mg/dL (<150) 11/26/23 Creatinine 0.65 mg/dL (0.5-1.4) 12/26/23 Blood Urea Nitrogen 11 mg/dL (9-16) 12/26/23 Sodium 140 mmol/L (135-145) 12/26/23 Potassium 3.6 mmol/L (3.3-5.1) 12/26/23 Chloride 103 mmol/L (96-108) 12/26/23 Carbon Dioxide 28 mmol/L (22-29) 12/26/23 Calcium 9.3 mg/dL (8.4-10.2) 12/26/23 AST 20 U/L (5-31) 12/26/23 ALT 26 U/L (0-31) 12/26/23 Total Protein 7.0 g/dL (6.5-8.0) 12/26/23 Albumin 4.0 g/dL (3.5-5.0) 12/26/23 [facility] Medical History Sacroiliitis Spondylosis of lumbar spine Depression, major, recurrent, moderate Renal calculi Overweight (BMI 25.0-29.9) Dyslipidemia Diabetic nephropathy associated with type 2 diabetes mellitus Diabetic neuropathy associated with type 2 diabetes mellitus USP (current) use of insulin Diabetes type 2, uncontrolled Diabetes mellitus Hypothyroidism Surgical History Hx of section Family History Father Cancer Mother Cancer Paternal Grandmother Diabetes Brother Mental health disorder Social History Household Members: None Housing: Apartment Alcohol intake: current Alcohol intake frequency: does not drink Patient Tobacco Use Status: Former Tobacco user Cigarettes Per Day: 20 Years Smoked: 20 e-Cigarette/Vaping Use: Never Used Substance Use Type: Former Substance User and Marijuana service: No Current occupational status: retired Cognitive needs: No Hearing needs: No Vision needs: Yes Assessment & Plan Assessment & Plan (1) Diabetic neuropathy associated with type 2 diabetes mellitus: Code(s): E11.40 - Type 2 diabetes mellitus with diabetic neuropathy, unspecified Qualifiers: Diabetes mellitus complication detail: diabetic polyneuropathy Qualified Code(s): E11.42 - Type 2 diabetes mellitus with diabetic polyneuropathy Plan: Patient at visit to set up an insert [email or web address] Mary 3 Instructed patient sensors water proof you can shower, or swim do not submerge sensor in water for over 30 minutes Is sensor falls off cannot put back in you need to replace sensor, customer service number given to patient for sensor replacement Sensor placed on the back of L arm Patient left visit with sensor in warmup Reviewed how to interpret trend arrows Reminded patient that to check finger sticks if symptoms do not match sensor reading. Discussed lag time between finger stick and sensor data.? Instructed patient she should always keep blood glucometer for backup testing if needed Reviewed delay of CGM from fingersticks Reminded pt that if symptoms do not match sensor still needs to check fingersticks. Portions of this note were created using voice recognition software, please excuse any words or phrases that may have been misinterpreted. Patient Instructions: Patient instruction: CGM provides information on blood glucose control throughout the day, including hyperglycemia and hypoglycemia. ? Continue to monitor blood glucose as instructed. Follow nutrition guidelines provided. Report any discomfort promptly to health care provider. ?Stay well-hydrated. You can bathe ,shower, swim and exercise while wearing the glucose sensor. Do not submerge glucose sensor in water for more than 30 minutes. Coding Level of Care Code Est Pt Level 1 (03842) Diagnoses Diabetic polyneuropathy associated with type 2 diabetes mellitus E11.42 Diabetes mellitus complication detail: diabetic polyneuropathy
== END 2024-04-02 14:33 | disposition home or self-care (01) ==
PROVIDERS: PCP Internal Medicine; Visit Provider Registered Nurse Diabetes Educator
DX: E11.42 Type 2 diabetes mellitus with diabetic polyneuropathy (principal)

== ENCOUNTER 2024-04-02 13:16 | Outpatient (AMB) | payer MEDICARE, MEDICAID, SELFPAY ==
--- NOTE | 2024-04-02 13:21 | A.OFFVIS_ITS ---
Vital Signs 04/02/24 14:14 Height 5 ft 5 in Weight 145 lb 8.081 oz BMI 24.2 BP 124/68 Blood Pressure Location Rt brachial Position Sitting Pulse 85 Pulse Source Pulse Oximeter Intake Visit Reasons: T2DM/CONFIRMED Intake Note: Patient present today to follow up on Type 2 Diabetes Mellitus. Last seen by Dr. Severino on 11/28/2023. Patient receives DME supplies through: [employer] Last Diabetic Eye exam: Last Podiatry Visit: Random Glucose: 116 mg/dL, Today HgA1C: 7.0% 04/02/2024 Tourist Information Assistant Required: No Accompanied by: Self / Same As Patient Allergies metformin [METFORMIN] Allergy (Severe, Verified 04/02/24 14:15) BLOATING,DIARRHEA, diarrhea Fluoxetine Allergy (Intermediate, Verified 04/02/24 14:15) Diarrhea saxagliptin [Onglyza] Allergy (Intermediate, Verified 04/02/24 14:15) Diarrhea sitagliptin [Janumet XR] Allergy (Intermediate, Verified 04/02/24 14:15) Diarrhea bee sting Allergy (Intermediate, Uncoded 04/02/24 14:15) Swelling HPI Comments Details: Patient is 68-year-old female with DM type 2 and hypothyroidism who presents for management. The patient last saw Dr. Severino 12/01. She was seen by Karla SANTIAGO today in the office to start Free style Mary 3 sensor and has f/u in 2 weeks. 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 Micro and macrovascular complications: nephropathy, neuropathy She has difficulty obtaining Trulicity. Diabetes medications: Tresiba 28 units Trulicity 3.0 weekly [last used 2 weeks ago ] Jardiance 25 mg She did not tolerate Synjardy as she had diarrhea. She had diarrhea with metformin. She did not tolerate acarbose. 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 Medications: currently on LT4 88 mcg for several years. Takes fasting am 1-2 hours before other meds or eating. Never forgets. Denies thyroid surgery or biopsy. Denies biotin use. Symptoms: Reports heat intolerance, insomnia, fatigue, dry skin, ,tremors. Denies weight loss, diarrhea, constipation, dysphagia, dyspnea, dysphonia, , palpitations, irritability, anxiety. Family History: maternal and paternal grandmothers had thyroid disease. [facility] Medical History Sacroiliitis Spondylosis of lumbar spine Depression, major, recurrent, moderate Renal calculi Overweight (BMI 25.0-29.9) Dyslipidemia Diabetic nephropathy associated with type 2 diabetes mellitus Diabetic neuropathy associated with type 2 diabetes mellitus USP (current) use of insulin Diabetes type 2, uncontrolled Diabetes mellitus Hypothyroidism Surgical History Hx of section Family History Father Cancer Mother Cancer Paternal Grandmother Diabetes Brother Mental health disorder Social History Household Members: None Housing: Apartment Alcohol intake: current Alcohol intake frequency: does not drink Patient Tobacco Use Status: Former Tobacco user Cigarettes Per Day: 20 Years Smoked: 20 e-Cigarette/Vaping Use: Never Used Substance Use Type: Former Substance User and Marijuana service: No Current occupational status: retired Cognitive needs: No Hearing needs: No Vision needs: Yes Physical Exam Vital Signs: Last Vital Signs Pulse 85 04/02/24 14:14 BP 124/68 04/02/24 14:14 BMI result Body Mass Index 24.2 Const General: cooperative Orientation/consciousness: oriented to person Limitations: no limitations Neck Neck: Yes normal visual inspection Thyroid: Thyroid normal Resp Effort & Inspection: normal respiratory effort Neuro General: oriented to person Extrem Other: Visual exam of foot performed. No ulcerations or open lesions. No onchomycosis, no callouses. Sensation diminshed to monofilament exam. Vibratory sensation is dimishedl with 128 Hz tuning fork. Results AMB Hemoglobin A1c AMB Hemoglobin A1c 7.0 % Last Edit by CARMENZA Vviar on 04/02/24 14:32 Results Reviewed Results Reviewed: Laboratory Last Values Glucose (Clinic) 116 mg/dL (60-115) H 04/02/24 14:23 Hgb A1c (Clinic) 7.0 % (4.0-6.0) H 04/02/24 14:27 Assessment & Plan Assessment & Plan (1) Diabetes type 2, uncontrolled: Code(s): E11.65 - Type 2 diabetes mellitus with hyperglycemia Category: Medical Qualifiers: Glycemic state: with hyperglycemia Qualified Code(s): E11.65 - Type 2 diabetes mellitus with hyperglycemia Plan: This 68-year-old white female with a history of type 2 diabetes being treated with Trulicity, Jardiance and basal insulin with good but not optimal glycemic control and known microvascular complications namely nephropathy and neuropathy. She has had difficulty getting Trulicity. Will switch her to mounjaro 0.25mg and titrate up in 4 weeks. She will let us know how she is doing on this med after 3 weeks and a new script will be sent for 0.5mg Diabetes medications: Tresiba 28 units mounjaro 0.25 mg weekly Jardiance 25 mg (2) Hypothyroidism: Code(s): E03.9 - Hypothyroidism, unspecified Category: Medical Qualifiers: Hypothyroidism type: acquired Qualified Code(s): E03.9 - Hypothyroidism, unspecified Plan: Stable. Clinically euthyroid on current dose. Orders: Orders AMB Hemoglobin A1c Today E11.9 - Type 2 diabetes mellitus without complications Medications: New tirzepatide (Mounjaro) 2.5 mg (0.5 mL) subcut QWEEK 4 weeks 2 mL 1RF E11.9 - Type 2 diabetes mellitus without complications, M46.1 - Sacroiliitis, not elsewhere classified Refilled insulin degludec (Tresiba FlexTouch U-100 insulin) 28 units (0.28 mL) subcut DAILY 45 mL 3RF Discontinued dulaglutide (Trulicity) FUTURE REFILLS WITH PCP. Discontinued Reason: Doctor's Order 3 mg (0.5 mL) subcut QWEEK 90 days 6.5 mL 2RF E11.9 - Type 2 diabetes mellitus without complications, Z79.4 - USP (current) use of insulin Coding Level of Care Code Est Pt Level 4 (69562) Diagnoses Uncontrolled type 2 diabetes mellitus with hyperglycemia E11.65 Glycemic state: with hyperglycemia Acquired hypothyroidism E03.9 Hypothyroidism type: acquired Time Spent (min) 30 Comment 30 min spent in reviewing chart, labs, face to face with patient.
[2024-04-02 14:14] VITALS: BP 124/68; PULSE 85; BMI 24.2
[2024-04-02 14:27] LABS: Glucose, Whole Blood 116 mg/dL (60-115)
== END 2024-04-02 14:58 | disposition home or self-care (01) ==
PROVIDERS: PCP Internal Medicine; Visit Provider Nurse Practitioner Adult Health
DX: E11.65 Type 2 diabetes mellitus with hyperglycemia (principal); E03.9 Hypothyroidism, unspecified; E11.9 Type 2 diabetes mellitus without complications
CPT/HCPCS: 99214

== ENCOUNTER → 2024-04-02 13:16 | Outpatient (BNVA) | payer MEDICARE, MEDICAID, SELFPAY | PROVIDERS: PCP Internal Medicine; Visit Provider Registered Nurse Diabetes Educator | DX: E11.42 Type 2 diabetes mellitus with diabetic polyneuropathy (principal) | CPT/HCPCS: 82947; 83036; 99211; 99212 ==

== ENCOUNTER 2024-04-15 14:34 | Outpatient (AMB) | payer MEDICARE, MEDICAID, SELFPAY ==
--- NOTE | 2024-04-15 15:33 | A.OFFVIS_ITS ---
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 Accompanied by: Self / Same As Patient Allergies metformin [METFORMIN] Allergy (Severe, Verified 04/02/24 14:15) BLOATING,DIARRHEA, diarrhea Fluoxetine Allergy (Intermediate, Verified 04/02/24 14:15) Diarrhea saxagliptin [Onglyza] Allergy (Intermediate, Verified 04/02/24 14:15) Diarrhea sitagliptin [Janumet XR] Allergy (Intermediate, Verified 04/02/24 14:15) Diarrhea bee sting Allergy (Intermediate, Uncoded 04/02/24 14:15) Swelling HPI Comprehensive Diabetes Asmnt Most Recent Diabetes Results: Microalb/Creat Ratio 22.6 ug/mg cr (<30) 11/26/23 Cholesterol 170 mg/dL (<200) 11/26/23 HDL Cholesterol 66 mg/dL (>40) 11/26/23 Triglycerides 56 mg/dL (<150) 11/26/23 Creatinine 0.65 mg/dL (0.5-1.4) 12/26/23 Blood Urea Nitrogen 11 mg/dL (9-16) 12/26/23 Sodium 140 mmol/L (135-145) 12/26/23 Potassium 3.6 mmol/L (3.3-5.1) 12/26/23 Chloride 103 mmol/L (96-108) 12/26/23 Carbon Dioxide 28 mmol/L (22-29) 12/26/23 Calcium 9.3 mg/dL (8.4-10.2) 12/26/23 AST 20 U/L (5-31) 12/26/23 ALT 26 U/L (0-31) 12/26/23 Total Protein 7.0 g/dL (6.5-8.0) 12/26/23 Albumin 4.0 g/dL (3.5-5.0) 12/26/23 ON LICENSE OF [facility] Medical History Sacroiliitis Spondylosis of lumbar spine Depression, major, recurrent, moderate Renal calculi Overweight (BMI 25.0-29.9) Dyslipidemia Diabetic nephropathy associated with type 2 diabetes mellitus Diabetic neuropathy associated with type 2 diabetes mellitus 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 Diabetes type 2, uncontrolled Diabetes mellitus Hypothyroidism Surgical History Hx of section Family History Father Cancer Mother Cancer Paternal Grandmother Diabetes Brother Mental health disorder Social History Household Members: None Housing: Apartment Alcohol intake: current Alcohol intake frequency: does not drink Patient Tobacco Use Status: Former Tobacco user Cigarettes Per Day: 20 Years Smoked: 20 e-Cigarette/Vaping Use: Never Used Substance Use Type: Former Substance User and Marijuana service: No Current occupational status: retired Cognitive needs: No Hearing needs: No Vision needs: Yes Assessment & Plan Assessment & Plan (1) Diabetic neuropathy associated with type 2 diabetes mellitus: Code(s): E11.40 - Type 2 diabetes mellitus with diabetic neuropathy, unspecified Qualifiers: Diabetes mellitus complication detail: diabetic polyneuropathy Qualified Code(s): E11.42 - Type 2 diabetes mellitus with diabetic polyneuropathy Plan: Personal Continuous Glucose Monitor: Patients CGM information reviewed Reviewed patient's sensor data: Hypoglycemia: ? 1% Hyperglycemia:? 33% Time in Range:?66% Average glucose for the last 2 weeks? 166 mg/dL Patient had 1 day with 3 episodes of hypoglycemia overnight. Reviewed with patient how to treat hypoglycemia with rule of 15s Patient had been on Trulicity 3 mg weekly, however prior to visit with SMALL CRAFT OPERATOR she was unable to obtain Trulicity for approximately 1 month Patient's last A1c on 04/02/2024 7%, at visit with SMALL CRAFT OPERATOR patient was prescribed and started Mounjaro. She has taken her 2nd injection of Mounjaro 2.5 mg. Patient denies any GI side effects In addition discussed with patient if there is an increase in her Mounjaro 2.5 mg, the basal insulin may need to be adjusted to prevent further episodes of hypoglycemia. Reviewed how to interpret trend arrows Reminded patient that to check finger sticks if symptoms do not match sensor reading. Discussed lag time between finger stick and sensor data.? Patient able to insert sensor independently in office today without issue.? Portions of this note were created using voice recognition software, please excuse any words or phrases that may have been misinterpreted. Coding Level of Care Code Est Pt Level 1 (01530) Diagnoses Diabetic polyneuropathy associated with type 2 diabetes mellitus E11.42 Diabetes mellitus complication detail: diabetic polyneuropathy
== END 2024-04-15 15:37 | disposition home or self-care (01) ==
PROVIDERS: PCP Internal Medicine; Visit Provider Registered Nurse Diabetes Educator
DX: E11.42 Type 2 diabetes mellitus with diabetic polyneuropathy (principal)

== ENCOUNTER → 2024-04-15 14:34 | Outpatient (BNVA) | payer MEDICARE, MEDICAID, SELFPAY | PROVIDERS: PCP Internal Medicine; Visit Provider Registered Nurse Diabetes Educator | DX: E11.42 Type 2 diabetes mellitus with diabetic polyneuropathy (principal) | CPT/HCPCS: 99211 ==

== ENCOUNTER 2024-05-01 07:38 | Outpatient (AMB) | payer MEDICARE, MEDICAID, SELFPAY ==
--- NOTE | 2024-05-01 08:15 | A.OFFPC_ITS ---
Intake Visit Reasons: Med Refill~ [phone] Allergies metformin [METFORMIN] Allergy (Severe, Verified 05/01/24 08:15) BLOATING,DIARRHEA, diarrhea Fluoxetine Allergy (Intermediate, Verified 05/01/24 08:15) Diarrhea saxagliptin [Onglyza] Allergy (Intermediate, Verified 05/01/24 08:15) Diarrhea sitagliptin [Janumet XR] Allergy (Intermediate, Verified 05/01/24 08:15) Diarrhea bee sting Allergy (Intermediate, Uncoded 04/02/24 14:15) Swelling Medication List - Last Reconciled 05/01/24 by Sen Shukla MD allopurinol 300 mg PO DAILY baclofen 20 mg PO BEDTIME blood sugar diagnostic (FreeStyle Lite Strips) 3 TIMES A DAY empagliflozin (Jardiance) 25 mg PO DAILY 90 days gabapentin 300 mg PO BID 90 days hydrochlorothiazide 12.5 mg PO DAILY insulin degludec (Tresiba FlexTouch U-100 insulin) 28 units (0.28 mL) subcut DAILY levothyroxine 88 mcg PO DAILY lisinopril 2.5 mg PO DAILY 90 days oxcarbazepine 600 mg PO DAILY pen needle, diabetic (BD Mar 2nd Gen Pen Needle) once a day rosuvastatin 40 mg PO DAILY 90 days tirzepatide (Mounjaro) 2.5 mg (0.5 mL) subcut QWEEK 4 weeks venlafaxine ER 150 mg PO BEDTIME zolpidem ER 12.5 mg PO Tobacco use date assessed: 05/01/24 Fall risk assessment: 1 Fall in past year Last assessed Fall Risk: 05/01/24 Dental Screening Dental Screen Date: 05/01/24 Did you have a dental visit in the last 12 months?: Yes Did you have a dental problem in the last 6 months where you did not have access to dental care?: No Was dental information given to patient?: Patient has dentist HPI Med Refill~ [phone] HPI Details Patient is 69-year-old female this is a telemedicine visit to fill her medication Patient says that she get muscle spasms and cramping at night and for that she was taking baclofen She is requesting a refill, initially it was started by Rheumatology. 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 However patient says that she no longer having such problem, and she need the medication otherwise she can not sleep at night. I have sent refill, side effect of medication reviewed with the patient. Other medications from this office are levothyroxine 88 mcg and rosuvastatin 40 mg. All other medications are from different providers. Patient have a follow-up appointment in June. 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 Diabetes type 2, uncontrolled Diabetes mellitus Hypothyroidism Surgical History Hx of section Family History Father Cancer Mother Cancer Paternal Grandmother Diabetes Brother Mental health disorder Social History Household Members: None Housing: Apartment Alcohol intake: current Alcohol intake frequency: does not drink Patient Tobacco Use Status: Former Tobacco user Cigarettes Per Day: 20 Years Smoked: 20 Packs per year/per ci.00 e-Cigarette/Vaping Use: Never Used Substance Use Type: Former Substance User and Marijuana service: No Current occupational status: retired Cognitive needs: No Hearing needs: No Vision needs: Yes Questionnaire PHQ-9 Over the last 2 weeks, how often have you been bothered by any of the following problems? 1. Little interest or pleasure in doing things: several days 2. Feeling down, depressed, or hopeless: nearly every day 3. Trouble falling or staying asleep, or sleeping too much: several days 4. Feeling tired or having little energy: more than half the days 5. Poor appetite or overeating: more than half the days 6. Feeling bad about yourself - or that you are a failure or have let yourself or your family down: nearly every day 7. Trouble concentrating on things, such as reading the newspaper or watching television: nearly every day 8. Moving or speaking so slowly that other people could have noticed. Or the opposite - being so fidgety or restless that you have been moving around a lot more than usual: more than half the days 9. Thoughts that you would be better off or of hurting yourself in some w ay: not at all Total score: 17 Depression Screening Interpretation: Positive Depression Screening Done: Yes 10834 - PHQ-9 Billing: Yes Source: Developed by Drs. Sina May, Janeth Rincon, Jomar Wilson and colleagues, with an educational yumi from [employer]. Thrive Questionnaire Date Thrive assessed: 05/01/24 I am a: Patient What is your living situation today?: I have a steady place to live Within the past 12 months, did the food you bought not last and you didn't have the money to get more?: Never true Within the past 12 months, did you worry whether your food would run out before you got money to buy more?: Never true Do you have trouble paying for medicines?: No Do you have trouble getting transportation to medical appointments?: No Do you have trouble paying your heating and electricity bill?: No Do you have trouble taking care of your child, family member or friend?: No Do you have trouble with day-to-day activities such as bathing, preparing meals, shopping, managing finances, etc.?: No Are you currently unemployed and looking for a job?: No Are you interested in more education?: No Please select the resources that you would like help with: None Currently or been in a relationship where the following occur: No concerns reported THRIVE Score: 0 AUDIT C Alcohol Use Questionnaire (AUDIT-C) 1. How often do you have a drink containing alcohol?: Never 3. How often do you have six or more drinks on one occasion?: Never Total Score: 0 Score Reviewed/Action Taken: Yes PAULO-7 AMB Questionnaire PAULO-7 Date PAULO - 7 assessed: 05/01/24 Feeling nervous, anxious, or on edge: 0 = Not at all Not being able to stop or control worryin = Not at all Worrying too much about different things: 0 = Not at all Trouble relaxin = Not at all Being so restless that it is hard to sit still: 0 = Not at all Becoming easily annoyed or irritable: 0 = Not at all Feeling afraid as if something awful might happen: 0 = Not at all Total PAULO-7 score (0-4 normal; 5-9 mild; 10-14 moderate; 15-21 severe): 0 Source: Developed by Drs. Sina May, Janeth Rincon, Jomar Wilson and colleagues, with an educational yumi from [employer]. PAULO-7 Assessment Billing PAULO-7 Assessment Tool: PAULO-7 Assessment 49375 Review of Systems Const Denies chills and Denies fever(s) ENT Denies epistaxis and Denies nasal discharge Card Denies chest pain Resp Denies chest congestion, Denies cough and Denies hemoptysis GI Denies diarrhea and Denies nausea Skin/Breast Denies rash Neuro Reports no additional complaints Psych Reports no additional complaints Endo Reports no additional complaints Physical exam (Primary Care) Tobacco/Smoking Status: Tobacco use Status Tobacco use date assessed 05/01/24 05/01/24 08:17 Patient Tobacco Use Status Former Tobacco user 05/01/24 08:17 e-Cigarette/Vaping Use Never Used 05/01/24 08:17 PHQ-9: PHQ-9 Score PHQ-9: Total score 17 05/01/24 08:54 Depression Screening Interpretation: Positive Thrive Assessment: Date of Thrive Assessment Date Thrive assessed 05/01/24 05/01/24 08:17 Currently or been in a relationship where the following occur: No concerns reported Telehealth Telehealth Telehealth Platform: [facility] Location of provider rendering services: practice address Location of patient: address on file Patient Identification confirmed using: Name, : Yes Telehealth method: voice only Patient verbally consented to treatment: Yes Patient verbally consented to billing insurance company: Yes Patient informed of any privacy concerns related to visit: Yes Assessment and Plan Assessment & Plan (1) Muscle cramp, nocturnal: Code(s): R25.2 - Cramp and spasm Plan Patient is 69-year-old female this is a telemedicine visit to fill her medication Patient says that she get muscle spasms and cramping at night and for that she was taking baclofen She is requesting a refill, initially it was started by Rheumatology. 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 However patient says that she no longer having such problem, and she need the medication otherwise she can not sleep at night. I have sent refill, side effect of medication reviewed with the patient. Other medications from this office are levothyroxine 88 mcg and rosuvastatin 40 mg. All other medications are from different providers. Patient have a follow-up appointment in June. 14 spent in care of this patient Medications: Refilled baclofen Further refills needs to come from Rheumatology 20 mg PO BEDTIME 90 tabs 0RF for muscle spasm baclofen Further refills needs to come from Rheumatology 20 mg PO BEDTIME 90 tabs 0RF for muscle spasm Coding Level of Care Code Tele Est Pt Level 3 (74410) Diagnoses Muscle cramp, nocturnal R25.2 Additional Codes PAULO-7 Assessment Billing - PAULO-7 Assessment Tool: PAULO-7 Assessment 12408 ([id number])
== END 2024-05-01 08:53 | disposition home or self-care (01) ==
LOC: HO.HMGC 07:38
PROVIDERS: PCP Internal Medicine; Visit Provider Internal Medicine
DX: R25.2 Cramp and spasm (principal)
CPT/HCPCS: 99442

== ENCOUNTER 2024-06-11 12:54 | Outpatient (AMB) | payer MEDICARE, MEDICAID, SELFPAY ==
--- NOTE | 2024-06-11 12:56 | MHC.PC.OV ---
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 Accompanied by: Self / Same As Patient Allergies metformin [METFORMIN] Allergy (Severe, Verified 06/11/24 12:56) BLOATING,DIARRHEA, diarrhea Fluoxetine Allergy (Intermediate, Verified 06/11/24 12:56) Diarrhea saxagliptin [Onglyza] Allergy (Intermediate, Verified 06/11/24 12:56) Diarrhea sitagliptin [Janumet XR] Allergy (Intermediate, Verified 06/11/24 12:56) Diarrhea bee sting Allergy (Intermediate, Uncoded 04/02/24 14:15) Swelling Medication List - Last Reconciled 06/11/24 by Sen Shukla MD allopurinol 300 mg PO DAILY baclofen 20 mg PO BEDTIME blood sugar diagnostic (FreeStyle Lite Strips) 3 TIMES A DAY dulaglutide (Trulicity) 3 mg (0.5 mL) subcut QWEEK empagliflozin (Jardiance) 25 mg PO DAILY 90 days gabapentin 300 mg PO BID 90 days hydrochlorothiazide 12.5 mg PO DAILY insulin degludec (Tresiba FlexTouch U-100 insulin) 28 units (0.28 mL) subcut DAILY levothyroxine 88 mcg PO DAILY lisinopril 2.5 mg PO DAILY 90 days oxcarbazepine 600 mg PO DAILY pen needle, diabetic (BD Mar 2nd Gen Pen Needle) once a day rosuvastatin 40 mg PO DAILY 90 days venlafaxine ER 150 mg PO BEDTIME zolpidem ER 12.5 mg PO Tobacco use date assessed: 05/01/24 Fall risk assessment: No Falls in past year Last assessed Fall Risk: 06/11/24 Dental Screening Dental Screen Date: 05/01/24 HPI 6M F/U meds HPI Details Patient is 69-year-old female with a history of diabetes, multiple joint arthritis, muscle spasms, osteoporosis, history of thoracic vertebral fracture, lipid disorder Came in for her regular follow-up appointment Continued to have muscle spasms in the back And is taking gabapentin along with baclofen from PCP office Hypothyroidism management through PCP office as well Diabetes management through Dr. 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 Diabetes type 2, uncontrolled Diabetes mellitus Hypothyroidism Surgical History Hx of section Family History Father Cancer Mother Cancer Paternal Grandmother Diabetes Brother Mental health disorder Social History Household Members: None Housing: Apartment Alcohol intake: current Alcohol intake frequency: does not drink Patient Tobacco Use Status: Former Tobacco user Cigarettes Per Day: 20 Years Smoked: 20 e-Cigarette/Vaping Use: Never Used Substance Use Type: Former Substance User and Marijuana service: No Current occupational status: retired Cognitive needs: No Hearing needs: No Vision needs: Yes Questionnaire PHQ-9 Over the last 2 weeks, how often have you been bothered by any of the following problems? 1. Little interest or pleasure in doing things: several days 2. Feeling down, depressed, or hopeless: several days 3. Trouble falling or staying asleep, or sleeping too much: nearly every day 4. Feeling tired or having little energy: more than half the days 5. Poor appetite or overeating: more than half the days 6. Feeling bad about yourself - or that you are a failure or have let yourself or your family down: nearly every day 7. Trouble concentrating on things, such as reading the newspaper or watching television: nearly every day 8. Moving or speaking so slowly that other people could have noticed. Or the opposite - being so fidgety or restless that you have been moving around a lot more than usual: more than half the days 9. Thoughts that you would be better off or of hurting yourself in some way: not at all Total score: 17 Depression Screening Interpretation: Positive Depression Screening Follow-up: Existing condition and In treatment Depression Screening Done: Yes 95531 - PHQ-9 Billing: Yes Source: Developed by Drs. Sina May, Janeth Rincon, Jomar Wilson and colleagues, with an educational yumi from [employer]. Thrive Questionnaire Date Thrive assessed: 06/08/24 I am a: Patient What is your living situation today?: I do not have a steady places to live I choose not to answer this question Within the past 12 months, did the food you bought not last and you didn't have the money to get more?: Often true Within the past 12 months, did you worry whether your food would run out before you got money to buy more?: Often true Do you have trouble paying for medicines?: Yes Do you have trouble getting transportation to medical appointments?: Yes Do you have trouble paying your heating and electricity bill?: Yes Do you have trouble taking care of your child, family member or friend?: No Do you have trouble with day-to-day activities such as bathing, preparing meals, shopping, managing finances, etc.?: Yes Are you currently unemployed and looking for a job?: No Are you interested in more education?: I choose not to answer this question Please select the resources that you would like help with: Housing/Longterm, Food, Paying for medicine, Transportation, Utilities and Daily support Currently or been in a relationship where the following occur: No concerns reported THRIVE Score: 5 AUDIT C Alcohol Use Questionnaire (AUDIT-C) 1. How often do you have a drink containing alcohol?: Never 3. How often do you have six or more drinks on one occasion?: Never Total Score: 0 Score Reviewed/Action Taken: Yes PAULO-7 AMB Questionnaire PAULO-7 Date PAULO - 7 assessed: 06/11/24 Feeling nervous, anxious, or on edge: 3 = Nearly every day Not being able to stop or control worryin = More than half the days Worrying too much about different things: 2 = More than half the days Trouble relaxin = More than half the days Being so restless that it is hard to sit still: 2 = More than half the days Becoming easily annoyed or irritable: 2 = More than half the days Feeling afraid as if something awful might happen: 1 = Several days Total PAULO-7 score (0-4 normal; 5-9 mild; 10-14 moderate; 15-21 severe): 14 Source: Developed by Drs. Sina May, Janeth Rincon, Jomar Wilson and colleagues, with an educational yumi from [employer]. PAULO-7 Assessment Billing PAULO-7 Assessment Tool: PAULO-7 Assessment 01442 Review of Systems Const Denies chills and Denies fever(s) ENT Denies epistaxis and Denies nasal discharge Card Denies chest pain Resp Denies chest congestion, Denies cough and Denies hemoptysis GI Denies diarrhea and Denies nausea Skin/Breast Denies rash Neuro Reports no additional complaints Psych Reports no additional complaints Endo Reports no additional complaints Physical exam (Primary Care) Vital Signs: Last Vital Signs Pulse 80 06/11/24 12:57 BP 122/78 06/11/24 12:57 Pulse Ox 97 06/11/24 12:57 BMI result Body Mass Index 24.5 Tobacco/Smoking Status: Tobacco use Status Tobacco use date assessed 05/01/24 06/11/24 13:02 Patient Tobacco Use Status Former Tobacco user 06/11/24 13:02 e-Cigarette/Vaping Use Never Used 06/11/24 13:02 PHQ-9: PHQ-9 Score PHQ-9: Total score 17 06/11/24 13:08 Depression Screening Interpretation: Positive Depression Screening Follow-up: Existing condition and In treatment Thrive Assessment: Date of Thrive Assessment Date Thrive assessed 06/08/24 06/11/24 13:02 Currently or been in a relationship where the following occur: No concerns reported Const General: cooperative, comfortable and no acute distress Orientation/consciousness: patient oriented x3 HENMT Head: Yes normocephalic Eyes General: appearance normal, both eyes and all related structures Neck Neck: Yes supple Resp Effort & Inspection: normal respiratory effort, no cough and no stridor Cardio Rhythm: regular rhythm Heart sounds: S1 normal heart sound present and S2 normal heart sound present Skin General skin exam: turgor normal Neuro General: patient oriented x3, tone normal and moves all extremities Extrem Right lower extremity: no edema Left lower extremity: no edema Assessment and Plan Assessment & Plan (1) Muscle cramp, nocturnal: Code(s): R25.2 - Cramp and spasm (2) Hypothyroidism: Code(s): E03.9 - Hypothyroidism, unspecified Qualifiers: Hypothyroidism type: acquired Qualified Code(s): E03.9 - Hypothyroidism, unspecified (3) Lipid disorder: Code(s): E78.9 - Disorder of lipoprotein metabolism, unspecified (4) Recurrent falls: Code(s): R29.6 - Repeated falls (5) Spondylosis of lumbar spine: Code(s): M47.816 - Spondylosis without myelopathy or radiculopathy, lumbar region (6) Diabetic neuropathy: Code(s): E11.40 - Type 2 diabetes mellitus with diabetic neuropathy, unspecified Qualifiers: Diabetes mellitus type: type 1 Diabetes mellitus complication detail: diabetic polyneuropathy Qualified Code(s): E10.42 - Type 1 diabetes mellitus with diabetic polyneuropathy (7) Osteoporosis: Code(s): M81.0 - Age-related osteoporosis without current pathological fracture Qualifiers: Osteoporosis type: age-related Presence of current pathological fracture: unspecified Qualified Code(s): M81.0 - Age-related osteoporosis without current pathological fracture (8) T12 compression fracture: Code(s): S22.080A - Wedge compression fracture of T11-T12 vertebra, initial encounter for closed fracture Qualifiers: Encounter type: initial encounter Qualified Code(s): S22.080A - Wedge compression fracture of T11-T12 vertebra, initial encounter for closed fracture Plan Patient is 69-year-old female with a history of diabetes, multiple joint arthritis, muscle spasms, osteoporosis, history of thoracic vertebral fracture, lipid disorder Came in for her regular follow-up appointment Continued to have muscle spasms in the back And is taking gabapentin along with baclofen from PCP office Hypothyroidism management through PCP office as well Diabetes management through Dr. 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 She is requesting a handicap placard paperwork filled which I did for her Coding Level of Care Code Est Pt Level 4 (87053) Complex EM visit Add On G2211 Diagnoses Muscle cramp, nocturnal R25.2 Acquired hypothyroidism E03.9 Hypothyroidism type: acquired Lipid disorder E78.9 Recurrent falls R29.6 Spondylosis of lumbar spine M47.816 Diabetic polyneuropathy associated with type 1 diabetes mellitus E10.42 Diabetes mellitus type: type 1 Diabetes mellitus complication detail: diabetic polyneuropathy Age related osteoporosis, unspecified pathological fracture presence M81.0 Osteoporosis type: age-related Presence of current pathological fracture: unspecified Compression fracture of T12 vertebra, initial encounter S22.080A Encounter type: initial encounter Additional Codes PAULO-7 Assessment Billing - PAULO-7 Assessment Tool: PAULO-7 Assessment [id number] ([id number])
[2024-06-11 12:57] VITALS: BP 122/78; PULSE 80; O2SAT 97; BMI 24.5
== END 2024-06-11 14:38 | disposition home or self-care (01) ==
PROVIDERS: PCP Internal Medicine; Visit Provider Internal Medicine
DX: R25.2 Cramp and spasm (principal); E03.9 Hypothyroidism, unspecified; S22.080A Wedge compression fracture of T11-T12 vertebra, initial encounter for closed fracture; E10.42 Type 1 diabetes mellitus with diabetic polyneuropathy; E78.9 Disorder of lipoprotein metabolism, unspecified; R29.6 Repeated falls; M47.816 Spondylosis without myelopathy or radiculopathy, lumbar region; M81.0 Age-related osteoporosis without current pathological fracture
CPT/HCPCS: 99214; G2211

== ENCOUNTER 2024-06-11 13:30 | Outpatient (REF) | payer MEDICARE, MEDICAID, SELFPAY ==
[2024-06-11 16:18] LABS: MANUAL DIFF FLAG NO
[2024-06-11 16:26] LABS: Basophils Percent Auto 0.4 % (0-2); Eosinophils Absolute Auto 0.1 X10*3/uL (0.0-0.4); Eosinophils Percent Auto 2.1 % (0-4); Hematocrit 44.2 % (37.0-47.0); Hemoglobin 14.7 g/dl (12.0-16.0); Imm Gran Abs Auto 0.01 X10*3/uL (0.00-0.03); Imm Gran Pct Auto 0.2 % (0.0-0.4); Lymphocytes Absolute Auto 1.3 X10*3/uL (1.2-4.9); Lymphocytes Percent Auto 26.8 % (20-40); Mean Corpuscular HGB Conc 33.3 g/dl (31.0-35.0); Mean Corpuscular Hemoglobin 30.5 pg (27.0-33.0); Mean Corpuscular Volume 91.7 fL (80.0-98.0); Mean Platelet Volume 10.6 fL (9.4-12.3); Monocytes Absolute Auto 0.4 X10*3/uL (0.1-1.2); Neutrophils Percent Auto 62.5 % (45-73); Platelet Count 198 X10*3/uL (160-400); Red Blood Count 4.82 X10*6/uL (4.20-5.50); White Blood Count 4.9 X10*3/uL (4.8-10.8)
[2024-06-11 16:49] LABS: Alanine Aminotransferase 27 U/L (0-31); Albumin Level 4.2 g/dL (3.5-5.0); Alkaline Phosphatase 91 U/L (39-117); Anion Gap 13 (12-20); Aspartate Amino Transferase 22 U/L (5-31); Bilirubin Total 0.4 mg/dL (0.0-1.0); Blood Urea Nitrogen 14 mg/dL (9-16); Calcium 9.8 mg/dL (8.4-10.2); Carbon Dioxide 29 mmol/L (22-29); Chloride 103 mmol/L (96-108); Estimated Glomerular Filt Rate > 60; Glucose Random 184 mg/dL (60-115); Potassium 3.4 mmol/L (3.3-5.1); Sodium 142 mmol/L (135-145)
[2024-06-11 18:04] LABS: Free T4 (Free Thyroxine) 0.83 ng/dL (0.71-1.85)
[2024-06-12 21:54] LABS: LDL Cholesterol Direct 74 mg/dL (<100)
== END 2024-06-11 13:31 | disposition home or self-care (01) ==
LOC: HO.HMGCLDS 13:30
PROVIDERS: PCP Internal Medicine; Visit Provider Internal Medicine
DX: E03.9 Hypothyroidism, unspecified (principal); E78.9 Disorder of lipoprotein metabolism, unspecified
CPT/HCPCS: 36415; 80053; 83721; 84439; 84443; 85025

== ENCOUNTER 2024-07-03 12:46 | Outpatient (AMB) | payer MEDICARE, MEDICAID, SELFPAY ==
--- NOTE | 2024-07-03 12:50 | A.OFFVIS_ITS ---
Vital Signs 07/03/24 12:53 Height 5 ft 5 in Weight 149 lb 14.629 oz BMI 24.9 BP 112/60 Blood Pressure Location Rt brachial Position Sitting Pulse 74 Pulse Source Pulse Oximeter Intake Visit Reasons: T2DM/LVM Intake Note: Patient present today to follow up on Type 2 Diabetes Mellitus. Patient receives DME supplies through: [employer] Last Diabetic Eye exam: Last Podiatry Visit: Most Recent HgA1C: 7.0%, 07/03/2024 Random Glucose: 186 mg/dL, Today Personnel Scheduler Required: No Accompanied by: Self / Same As Patient Allergies metformin [METFORMIN] Allergy (Severe, Verified 07/03/24 12:53) BLOATING,DIARRHEA, diarrhea Fluoxetine Allergy (Intermediate, Verified 07/03/24 12:53) Diarrhea saxagliptin [Onglyza] Allergy (Intermediate, Verified 07/03/24 12:53) Diarrhea sitagliptin [Janumet XR] Allergy (Intermediate, Verified 07/03/24 12:53) Diarrhea bee sting Allergy (Intermediate, Uncoded 07/03/24 12:53) Swelling HPI Comments Details: Patient is 69-year-old female with DM type 2 and hypothyroidism who presents for management. The patient was last seen in Endocrinology in March at which time she was changed to [facility] due to difficulties getting Trulicity. Most recent Hgb A1C 7% 07/03/24 and 7% 04/02/24. 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 Micro and macrovascular complications: neuropathy, has had nephropathy in the past, has prior h/o renal stones She did not tolerate Synjardy as she had diarrhea. She had diarrhea with metformin. She did not tolerate acarbose. Diabetes medications: Tresiba 28 units Trulicity 3.0mg weekly Jardiance 25 mg She does not have her freestyle gerald 3 today: reports in the 80's in the am, at times feels low, average 140's No Nephropathy currently, but reports + in the past, she is followed by neph and has a h/o stones, 06/11/24 eGFR >60, 12/06/23: microalbumin 11 Neuropathy: + numbness, tingling, cramping in lower extremities, has not been seen by podiatry recently. She does get care through [email or web address] Retinopathy:has seen retinal specialist in [place], last eye exam: had one earlier in the year, opth retired. other specialist: neurology Hypoglycemia: none recent Hyperglycemia: + urinary frequency, occasional nocturia, + polydypsia Exercise: walks with others difficult due to balance and vision issues [employer] - CDE education: today 2) Hypothyroidism Patient has had hypothyroidism since 2014. Medications: currently on LT4 88 mcg for several years. Takes fasting am 1-2 hours before other meds or eating. Never forgets. Most recent TSH 0.20 06/11/24. Denies thyroid surgery or biopsy. Denies biotin use. Symptoms: Reports heat intolerance, insomnia, fatigue, dry skin, ,tremors. Denies weight loss, diarrhea, constipation, dysphagia, dyspnea, dysphonia, , palpitations, irritability, anxiety. Family History: maternal and paternal grandmothers had thyroid disease. [facility] Medical History Sacroiliitis Spondylosis of lumbar spine Depression, major, recurrent, moderate Renal calculi Overweight (BMI 25.0-29.9) Dyslipidemia Diabetic nephropathy associated with type 2 diabetes mellitus Diabetic neuropathy associated with type 2 diabetes mellitus senior care (current) use of insulin Diabetes type 2, uncontrolled Diabetes mellitus Hypothyroidism Surgical History Hx of section Family History Father Cancer Mother Cancer Paternal Grandmother Diabetes Brother Mental health disorder Social History Household Members: None Housing: Apartment Alcohol intake: current Alcohol intake frequency: does not drink Patient Tobacco Use Status: Former Tobacco user Cigarettes Per Day: 20 Years Smoked: 20 e-Cigarette/Vaping Use: Never Used Substance Use Type: Former Substance User and Marijuana service: No Current occupational status: retired Cognitive needs: No Hearing needs: No Vision needs: Yes Physical Exam Vital Signs: Last Vital Signs Pulse 74 07/03/24 12:53 BP 112/60 07/03/24 12:53 BMI result Body Mass Index 24.9 Results AMB Hemoglobin A1c AMB Hemoglobin A1c 7.0 % Last Edit by CARMENZA Vivar on 07/03/24 13:13 Results Reviewed Results Reviewed: Laboratory Last Values Glucose (Clinic) 186 mg/dL (60-115) H 07/03/24 13:00 Laboratory Tests 11/26/23 12/26/23 04/02/24 11:00 13:05 14:27 Creatinine Estimated GFR Hgb A1c (Clinic) 7.0 H AST ALT LDL Cholesterol Direct TSH 0.52 Free T4 Urine Microalbumin 11.0 06/11/24 13:39 Creatinine 0.72 Estimated GFR > 60 Hgb A1c (Clinic) AST 22 ALT 27 LDL Cholesterol Direct 74 TSH 0.20 L Free T4 0.83 Urine Microalbumin Assessment & Plan Assessment & Plan (1) Diabetic neuropathy associated with type 2 diabetes mellitus: Code(s): E11.40 - Type 2 diabetes mellitus with diabetic neuropathy, unspecified Category: Medical Qualifiers: Diabetes mellitus complication detail: diabetic polyneuropathy Qualified Code(s): E11.42 - Type 2 diabetes mellitus with diabetic polyneuropathy Plan: The patient is 69 year old female with type 2 diabetes with good glycemic control. A1C was 7% today in the office. She is having some am lows confirmed by fingerstick. Will reduce Tresiba by 2 units. She monitors her glucose through freestyle and carry source of glucose Tresiba 26 units Trulicity 3.0mg weekly Jardiance 25 mg Orders: Orders AMB Hemoglobin A1c Today E11.42 - Type 2 diabetes mellitus with diabetic polyneuropathy Free T4 (Free Thyroxine) 3 Months E11.65 - Type 2 diabetes mellitus with hyperglycemia Thyroid Stimulating Hormone 3 Months E11.65 - Type 2 diabetes mellitus with hyperglycemia Referrals Ophthalmology Referral E11.9 - Type 2 diabetes mellitus without complications Medications: New levothyroxine 75 mcg PO DAILY 90 days 90 tabs 11RF Changed From insulin degludec (Tresiba FlexTouch U-100 insulin) 28 units (0.28 mL) subcut DAILY 45 mL 3RF To insulin degludec (Tresiba FlexTouch U-100 insulin) 26 units (0.26 mL) subcut DAILY 90 days 24 mL 3RF Discontinued levothyroxine Discontinued Reason: Doctor's Order 88 mcg PO DAILY 90 tabs 1RF E03.9 - Hypothyroidism, unspecified Patient Instructions: Side effects of SGLT-2 inhibitors were reviewed with the patient: UTI, fungal infection, bacterial infection in the perineum, light headed feeling like you may pass out, low blood sugar, dehydration, allergic reaction-skin rash, itching, hives, rare dka, change in renal function.. Patient was advised to contact PCP or go to urgent care for any infection. More serious reaction go to ER and stop medication, Notify Endo if medication is stopped or the patient is in need of adjustment of medication, The patient was counseled to achieve a target A1C of 7% (154 avg). Fasting blood sugars should be 90-130 in the morning and less than 180 two hours after meals. Reviewed the relationship between poor diabetic control and the developement of complications Coding Level of Care Code Est Pt Level 4 (93006) Complex EM visit Add On G2211 Diagnoses Diabetic polyneuropathy associated with type 2 diabetes mellitus E11.42 Diabetes mellitus complication detail: diabetic polyneuropathy Time Spent (min) 35 Comment Time spent reviewing labs/provider notes, face to face, chart doc
[2024-07-03 12:53] VITALS: BP 112/60; PULSE 74; BMI 24.9
[2024-07-03 13:05] LABS: Glucose, Whole Blood 186 mg/dL (60-115)
== END 2024-07-03 13:31 | disposition home or self-care (01) ==
PROVIDERS: PCP Internal Medicine; Visit Provider Nurse Practitioner Adult Health
DX: E11.42 Type 2 diabetes mellitus with diabetic polyneuropathy (principal)
CPT/HCPCS: 99214; G2211

== ENCOUNTER → 2024-07-03 12:46 | Outpatient (BNVA) | payer MEDICARE, MEDICAID, SELFPAY | PROVIDERS: PCP Internal Medicine; Visit Provider Nurse Practitioner Adult Health | DX: E11.42 Type 2 diabetes mellitus with diabetic polyneuropathy (principal) | CPT/HCPCS: 82947; 83036; 99212 ==

== ENCOUNTER 2024-09-11 08:47 | Outpatient (AMB) | payer MEDICARE, MEDICAID, SELFPAY ==
--- NOTE | 2024-09-11 09:41 | A.OFFPC_ITS ---
Intake Visit Reasons: 3 month TV Allergies metformin [METFORMIN] Allergy (Severe, Verified 09/11/24 09:42) BLOATING,DIARRHEA, diarrhea Fluoxetine Allergy (Intermediate, Verified 09/11/24 09:42) Diarrhea saxagliptin [Onglyza] Allergy (Intermediate, Verified 09/11/24 09:42) Diarrhea sitagliptin [Janumet XR] Allergy (Intermediate, Verified 09/11/24 09:42) Diarrhea bee sting Allergy (Intermediate, Uncoded 07/03/24 12:53) Swelling Medication List - Last Reconciled 09/11/24 by Sen Shukla MD allopurinol 300 mg PO DAILY baclofen 20 mg PO BEDTIME blood sugar diagnostic (FreeStyle Lite Strips) 3 TIMES A DAY dulaglutide (Trulicity) 3 mg (0.5 mL) subcut QWEEK empagliflozin (Jardiance) 25 mg PO DAILY gabapentin 300 mg PO BID 90 days hydrochlorothiazide 12.5 mg PO DAILY insulin degludec (Tresiba FlexTouch U-100 insulin) 26 units (0.26 mL) subcut DAILY 90 days levothyroxine 75 mcg PO DAILY 90 days lisinopril 2.5 mg PO DAILY 90 days oxcarbazepine 600 mg PO DAILY pen needle, diabetic (BD Mar 2nd Gen Pen Needle) once a day rosuvastatin 40 mg PO DAILY 90 days venlafaxine ER 150 mg PO BEDTIME zolpidem ER 12.5 mg PO Tobacco use date assessed: 09/11/24 Fall risk assessment: No Falls in past year Last assessed Fall Risk: 09/11/24 Dental Screening Dental Screen Date: 09/11/24 Did you have a dental visit in the last 12 months?: Yes Did you have a dental problem in the last 6 months where you did not have access to dental care?: No Was dental information given to patient?: Patient has dentist HPI 3 month TV HPI Details Chief Complaint Follow-up for medication management and laboratory review. Assessment and Plan 69-year-old female with a history of hyp othyroidism, diabetes mellitus type 2, insomnia, depression, bipolar disorder, and peripheral neuropathy presenting for a three-month follow-up appointment. The patient's levothyroxine dosage has been reduced from 88 mcg to 75 mcg, and her insulin dosage for diabetes management has been adjusted to 26 units. Current medications include Trulicity, Jardiance, vanlupaxin, zolpidem, oxacarbazine, and gabapentin, which was recently refilled. Recent laboratory work from June shows her hemoglobin levels and kidney functions are within normal ranges, and her hemoglobin A1c is 7.0, indicating adequate glycemic control. Liver enzymes are normal. The patient's thyroid function will likely be reassessed in August following the medication adjustment. 1. Diabetes Mellitus, Type 2 Insulin dosage is adjusted to 26 units. Patient to continue current medications including Trulicity and Jardiance. Hemoglobin A1c is at 7.0; continue monitoring glycemic control. Next medication review in three months. 2. Insomnia Continue current psychiatric medications vanlupaxin, oxacarbazine, and zolpidem as currently prescribed. No refills needed, but next check expected in three months. 3. Hypothyroidism Levothyroxine dosage has been reduced to 75 mcg. The patient is to monitor thyroid function and will reassess thyroid levels in August. No current refill needs for thyroid medication were discussed. 4. Peripheral Neuropathy Recently received refill for gabapentin. Medication management to be reviewed in three months. Problem List - Hypothyroidism - Diabetes Mellitus, Type 2 - Insomnia - Depression - Bipolar Disorder - Peripheral Neuropathy Patient Instructions - Continue taking the prescribed medicat ions as discussed. - Monitor thyroid function and plan for reassessment in August. - Maintain current diabetes regimen and monitor blood glucose levels. - Attend follow-up appointment in three months for further evaluation and medication adjustments. 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 Diabetes type 2, uncontrolled Diabetes mellitus Hypothyroidism Surgical History Hx of section Family History Father Cancer Mother Cancer Paternal Grandmother Diabetes Brother Mental health disorder Social History Household Members: None Housing: Apartment Alcohol intake: current Alcohol intake frequency: does not drink Patient Tobacco Use Status: Former Tobacco user Cigarettes Per Day: 20 Years Smoked: 20 e-Cigarette/Vaping Use: Never Used Substance Use Type: Former Substance User and Marijuana service: No Current occupational status: retired Cognitive needs: No Hearing needs: No Vision needs: Yes Questionnaire Thrive Questionnaire Date Thrive assessed: 09/11/24 I am a: Patient What is your living situation today?: I do not have a steady places to live I choose not to answer this question Within the past 12 months, did the food you bought not last and you didn't have the money to get more?: Often true Within the past 12 months, did you worry whether your food would run out before you got money to buy more?: Often true Do you have trouble paying for medicines?: Yes Do you have trouble getting transportation to medical appointments?: Yes Do you have trouble paying your heating and electricity bill?: Yes Do you have trouble taking care of your child, family member or friend?: No Do you have trouble with day-to-day activities such as bathing, preparing meals, shopping, managing finances, etc.?: Yes Are you currently unemployed and looking for a job?: No Are you interested in more education?: I choose not to answer this question Currently or been in a relationship where the following occur: No concerns reported THRIVE Score: 5 AUDIT C Alcohol Use Questionnaire (AUDIT-C) 1. How often do you have a drink containing alcohol?: Never 3. How often do you have six or more drinks on one occasion?: Never Total Score: 0 Score Reviewed/Action Taken: Yes PAULO-7 AMB Questionnaire PAULO-7 Date PAULO - 7 assessed: 06/11/24 Source: Developed by Drs. Sina May, Janeth Rincon, Jomar Wilson and colleagues, with an educational yumi from [employer]. Review of Systems Const Denies chills and Denies fever(s) ENT Denies epistaxis and Denies nasal discharge Card Denies chest pain Resp Denies chest congestion, Denies cough and Denies hemoptysis GI Denies diarrhea and Denies nausea Skin/Breast Denies rash Neuro Reports no additional complaints Psych Reports no additional complaints Endo Reports no additional complaints Physical exam (Primary Care) Tobacco/Smoking Status: Tobacco use Status Tobacco use date assessed 09/11/24 09/11/24 09:43 Patient Tobacco Use Status Former Tobacco user 09/11/24 09:43 e-Cigarette/Vaping Use Never Used 09/11/24 09:43 Thrive Assessment: Date of Thrive Assessment Date Thrive assessed 09/11/24 09/11/24 09:43 Currently or been in a relationship where the following occur: No concerns reported Telehealth Telehealth Telehealth Platform: [employer] Location of provider rendering services: practice address Location of patient: address on file Patient Identification confirmed using: Name, : Yes Telehealth method: voice only Patient verbally consented to treatment: Yes Patient verbally consented to billing insurance company: Yes Patient informed of any privacy concerns related to visit: Yes Minutes spent on Phone/Video with Pt.: 16 Coding Level of Care Code Tele Est Pt Level 3 (46805) Diagnoses Diabetic polyneuropathy associated with type 1 diabetes mellitus E10.42 Diabetes mellitus type: type 1 Diabetes mellitus complication detail: diabetic polyneuropathy Acquired hypothyroidism E03.9 Hypothyroidism type: acquired [facility] (current) use of insulin Z79.4 Diabetic polyneuropathy associated with type 2 diabetes mellitus E11.42 Diabetes mellitus complication detail: diabetic polyneuropathy Assessment & Plan Assessment & Plan (1) Diabetic neuropathy: Code(s): E11.40 - Type 2 diabetes mellitus with diabetic neuropathy, unspecified Category: Medical Qualifiers: Diabetes mellitus type: type 1 Diabetes mellitus complication detail: diabetic polyneuropathy Qualified Code(s): E10.42 - Type 1 diabetes mellitus with diabetic polyneuropathy (2) Hypothyroidism: Code(s): E03.9 - Hypothyroidism, unspecified Category: Medical Qualifiers: Hypothyroidism type: acquired Qualified Code(s): E03.9 - Hypothyroidism, unspecified (3) oil 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 Assessment and Plan 69-year-old female with a history of hypothyroidism, diabetes mellitus type 2, insomnia, depression, bipolar disorder, and peripheral neuropathy presenting for a three-month follow-up appointment. The patient's levothyroxine dosage has been reduced from 88 mcg to 75 mcg, and her insulin dosage for diabetes management has been adjusted to 26 units. Current medications include Trulicity, Jardiance, vanlupaxin, zolpidem, oxacarbazine, and gabapentin, which was recently refilled. Recent laboratory work from June shows her hemoglobin levels and kidney functions are within normal ranges, and her hemoglobin A1c is 7.0, indicating adequate glycemic control. Liver enzymes are normal. The patient's thyroid function will likely be reassessed in August following the medication adjustment. 1. Diabetes Mellitus, Type 2 Insulin dosage is adjusted to 26 units. Patient to continue current medications including Trulicity and Jardiance. Hemoglobin A1c is at 7.0; continue monitoring glycemic control. Next medication review in three months. 2. Insomnia Continue current psychiatric medications vanlupaxin, oxacarbazine, and zolpidem as currently prescribed. No refills needed, but next check expected in three months. 3. Hypothyroidism Levothyroxine dosage has been reduced to 75 mcg. The patient is to monitor thyroid function and will reassess thyroid levels in August. No current refill needs for thyroid medication were discussed. 4. Peripheral Neuropathy Recently received refill for gabapentin. Medication management to be reviewed in three months. Problem List - Hypothyroidism - Diabetes Mellitus, Type 2 - Insomnia - Depression - Bipolar Disorder - Peripheral Neuropathy Patient Instructions - Continue taking the prescribed medications as discussed. - Monitor thyroid function and plan for reassessment in August. - Maintain current diabetes regimen and monitor blood glucose levels. - Attend follow-up appointment in three months for further evaluation and medication adjustments. Medications: Refilled gabapentin 300 mg PO BID 180 caps 0RF 90 days E11.42 - Type 2 diabetes mellitus with diabetic polyneuropathy
== END 2024-09-11 11:26 | disposition home or self-care (01) ==
LOC: HO.HMCC 08:48
PROVIDERS: PCP Internal Medicine; Visit Provider Internal Medicine
DX: E11.42 Type 2 diabetes mellitus with diabetic polyneuropathy (principal); E03.9 Hypothyroidism, unspecified; Z79.4 Long term (current) use of insulin

== ENCOUNTER → 2024-09-11 08:47 | Outpatient (BNVA) | payer MEDICARE, MEDICAID, SELFPAY | PROVIDERS: PCP Internal Medicine; Visit Provider Internal Medicine ==

== ENCOUNTER 2024-09-16 12:09 | Outpatient (REF) | payer MEDICARE, MEDICAID, SELFPAY ==
[2024-09-16 15:22] LABS: Parathyroid Hormone Intact 52.1 pg/mL (8.7-77.1)
[2024-09-16 15:34] LABS: Free T4 (Free Thyroxine) 0.82 ng/dL (0.71-1.85)
[2024-09-16 16:01] LABS: Albumin Level 4.3 g/dL (3.5-5.0); Anion Gap 14 (12-20); Aspartate Amino Transferase 24 U/L (5-31); Bilirubin Total 0.3 mg/dL (0.0-1.0); Blood Urea Nitrogen 13 mg/dL (9-16); Calcium 9.7 mg/dL (8.4-10.2); Carbon Dioxide 31 mmol/L (22-29); Chloride 101 mmol/L (96-108); Estimated Glomerular Filt Rate > 60; Glucose Random 142 mg/dL (60-115); Potassium 3.6 mmol/L (3.3-5.1); Sodium 142 mmol/L (135-145); Thyroid Stimulating Hormone 1.28 uIU/mL (0.32-4.0)
[2024-09-16 16:36] LABS: Alanine Aminotransferase 35 U/L (0-31); Alkaline Phosphatase 88 U/L (39-117)
[2024-09-18 12:33] LABS: Prot Elec - Albumin 4.3 g/dL (3.8-4.8); Prot Elec - Alpha1 0.2 g/dL (0.2-0.3); Prot Elec - Alpha2 0.8 g/dL (0.5-0.9); Prot Elec - Beta 1 0.4 g/dL (0.4-0.6); Prot Elec - Beta 2 0.4 g/dL (0.2-0.5); Prot Elec - Gamma 0.8 g/dL (0.8-1.7); Prot Elec - Total Protein 6.9 g/dL (6.1-8.1)
[2024-09-21 16:48] LABS: Vitamin D 25-OH, D2 <4 ng/mL; Vitamin D 25-OH, D3 34 ng/mL; Vitamin D 25-OH, Total 34 ng/mL (30-100)
== END 2024-09-16 12:10 | disposition home or self-care (01) ==
LOC: HO.LAB 12:09
PROVIDERS: Nurse Practitioner Adult Health; PCP Internal Medicine; Visit Provider Student in an Organized Health Care Education/Training Program
DX: M19.90 Unspecified osteoarthritis, unspecified site (principal); M81.0 Age-related osteoporosis without current pathological fracture; E55.9 Vitamin D deficiency, unspecified; E11.65 Type 2 diabetes mellitus with hyperglycemia; M54.9 Dorsalgia, unspecified
CPT/HCPCS: 36415; 80053; 82306; 83970; 84165; 84439; 84443; 99212

== ENCOUNTER 2024-09-16 12:09 | Outpatient (AMB) | payer MEDICARE, MEDICAID, SELFPAY ==
--- NOTE | 2024-09-16 12:36 | A.OFFVIS_ITS ---
Vital Signs 09/16/24 12:38 Height 5 ft 5 in Weight 147 lb 11.355 oz BMI 24.6 BP 116/68 Blood Pressure Location Rt brachial Position Sitting Pulse 93 Pulse Source Pulse Oximeter Intake Visit Reasons: Back pain/CM Intake Note: Patient present here today to re-establish treatment for back pain: Coating Mixer Required: No Accompanied by: Self / Same As Patient Allergies metformin [METFORMIN] Allergy (Severe, Verified 09/16/24 12:42) BLOATING,DIARRHEA, diarrhea Fluoxetine Allergy (Intermediate, Verified 09/16/24 12:42) Diarrhea saxagliptin [Onglyza] Allergy (Intermediate, Verified 09/16/24 12:42) Diarrhea sitagliptin [Janumet XR] Allergy (Intermediate, Verified 09/16/24 12:42) Diarrhea bee sting Allergy (Intermediate, Uncoded 09/16/24 12:42) Swelling Medication List - Last Reconciled 09/16/24 by Deana Shin MD allopurinol 300 mg PO DAILY baclofen 20 mg PO BEDTIME blood sugar diagnostic (FreeStyle Lite Strips) 3 TIMES A DAY dulaglutide (Trulicity) 3 mg (0.5 mL) subcut QWEEK empagliflozin (Jardiance) 25 mg PO DAILY gabapentin 300 mg PO BID 90 days hydrochlorothiazide 12.5 mg PO DAILY insulin degludec (Tresiba FlexTouch U-100 insulin) 26 units (0.26 mL) subcut DAILY 90 days levothyroxine 75 mcg PO DAILY 90 days lisinopril 2.5 mg PO DAILY 90 days oxcarbazepine 600 mg PO DAILY pen needle, diabetic (BD Mar 2nd Gen Pen Needle) once a day rosuvastatin 40 mg PO DAILY 90 days venlafaxine ER 150 mg PO BEDTIME zolpidem ER 12.5 mg PO HPI Comments Details: Patient is a 69-year-old female with non crystal proven gout on allopurinol, well-controlled diabetes complicated by diabetic neuropathy, hypertension, hypothyroidism, hyperlipidemia, history of imbalance and recurrent falls, polyarticular osteoarthritis and osteoporosis complicated by multiple compression fractures of the lumbar spine who presents today for follow-up Interval History: Patient last seen 09/18/2023. At that time she had mentioned that she had sustained lumbar compression fracture. She was evaluated for osteoporosis with DEXA scan however patient did not return to follow up until now. Today patient has multiple complaints including neck pain, hand pain, shoulder pain, knee pain and hip pain. Of note she is complaining of imbalance and subsequent syncope which is currently being evaluated by Neurology. Since her last visit patient states that she has fallen another time and sustained a 2nd lumbar compression fracture Rheumatologic History: Examined imaging has always been consistent with osteoarthritis. There was no concern for inflammatory arthritis. Osteoporosis with multiple lumbar fractures. 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) use of insulin Diabetes type 2, uncontrolled Diabetes mellitus Hypothyroidism Surgical History Hx of section Family History Father Cancer Mother Cancer Paternal Grandmother Diabetes Brother Mental health disorder Social History Household Members: None Housing: Apartment Alcohol intake: current Alcohol intake frequency: does not drink Patient Tobacco Use Status: Former Tobacco user Cigarettes Per Day: 20 Years Smoked: 20 e-Cigarette/Vaping Use: Never Used Substance Use Type: Former Substance User and Marijuana service: No Current occupational status: retired Cognitive needs: No Hearing needs: No Vision needs: Yes Review of Systems Const Details: Review of Systems Constitutional: Denies fever, chills, weight loss ENT: Denies vision changes, eye pain or eye redness, dental caries, dry mouth GI: Denies nausea, vomiting, diarrhea, abdominal pain, change in BM Pulm: Denies SOB, ROSA, hemoptysis, wheezing Cards: Denies chest pain, palpitations Skin: Denies Raynaud's, rash, nail changes, photosensitivity, CLAIM PROFESSIONAL: Denies headaches, weakness, paresthesias, recurrent falls MSK: as per HPI All other systems reviewed and are unremarkable except noted above Physical Exam Vital Signs: Last Vital Signs Pulse 93 09/16/24 12:38 BP 116/68 09/16/24 12:38 BMI result Body Mass Index 24.6 Physical Examination CONSTITUITIONAL Patient alert and cooperative. Well appearing and in no apparent painful distress HEENT Conjunctiva and sclera clear. ?Pupils equal round and reactive to light. ?No lymphadenopathy. ? CHEST/RESPIRATORY SYSTEM Normal respiratory effort and able to speak in complete sentences. ?Clear to auscultation bilaterally. ?No crackles, rales, rhonchi, wheezes heard. CARDIAC SYSTEM Regular rate and rhythm. ?S1 and S2 heard no murmurs. 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 Heberden's and Sea's nodes noted throughout bilateral hands. No synovitis noted to the MCPs, PIPs or DIPs. ?No tenderness to palpation of these joints. Wrists: ?Full range of motion at the wrists without pain. ?No tenderness to palpation or synovitis noted to the wrists. Elbows: Full range of motion without pain. No tenderness, weakness, swelling, increased warmth or erythema. Shoulders: Full range of motion without pain. No tenderness, weakness, swelling, increased warmth or erythema. Hips: Full range of motion without pain. Hip bursa: No tenderness to palpation Knees: ?Full range of motion. ?No tenderness, swelling, increased warmth or erythema.?No effusion or crepitations Ankles: Full range of motion. ?No tenderness, swelling, increased warmth or erythema.? Feet: ?Negative squeeze test. ?No tenderness to palpation or swelling of the MTPs. Tender points:??No tenderness to palpation of the neck, shoulders, chest, elbows, hips, buttocks or knees. SKIN Skin intact without rashes. Results Reviewed Results Reviewed: DEXA 10/19/23 FINDINGS: LEFT FEMUR, NECK: BMD 0.805 g/cm2, Z-score -0.1, T-score -1.7, osteopenia. LEFT FEMUR, TOTAL: BMD 0.769 g/cm2, Z-score -0.6, T-score -1.9, osteopenia. AP SPINE L1-L3 (excluding L4): The data of L1-L4 has been changed to exclude the L4 vertebral body, because degenerative sclerosis at this level may cause overestimation of lumbar spine density. BMD 0.959 g/cm2, Z-score -0.2, T-score -1.8, osteopenia. Assessment & Plan Assessment & Plan (1) Osteoporosis: Code(s): M81.0 - Age-related osteoporosis without current pathological fracture Category: Medical Qualifiers: Osteoporosis type: age-related Presence of current pathological fracture: with current pathological fracture Encounter type: sequela Qualified Code(s): M80.00XS - Age-related osteoporosis with current pathological fracture, unspecified site, sequela Plan: #Osteoporosis complicated by lumbar compression fractures x 2 Patient has DEXA shows osteopenia but given her recurrent falls with subsequent lumbar compression fracture this meets the diagnosis for osteoporosis. Plan - IV Zolendronic acid 5mg yearly for 2 years then recheck DEXA - Ca-Vit D supplement - Check CMP, Vit D and PTH (2) Osteoarthritis: Code(s): M19.90 - Unspecified osteoarthritis, unspecified site Category: Medical Qualifiers: Osteoarthritis location: multiple joints Osteoarthritis type: primary Qualified Code(s): M15.0 - Primary generalized (osteo)arthritis Plan: #Polyarticular OA Polyarticular OA without any evidence of synovitis today on examination Plan - Topical diclofenac 1% tid up to 4 times a day on hands and knees - Increase gabapentin to 400mg bid Plan I spent 30 minutes reviewing the record and labs, seeing the patient, discussing the treatment plan and documenting in the medical record ? Orders: Orders Comprehensive Met. Panel Today E55.9 - Vitamin D deficiency, unspecified, M19.90 - Unspecified osteoarthritis, unspecified site, M81.0 - Age-related osteoporosis without current pathological fracture Protein Electrophoresis, Serum Today E55.9 - Vitamin D deficiency, unspecified, M19.90 - Unspecified osteoarthritis, unspecified site, M81.0 - Age-related osteoporosis without current pathological fracture Zoledronic acid (Reclast) 5mg Infusion Today M80.00XS - Age-related osteoporosis with current pathological fracture, unspecified site, sequela, S22.080A - Wedge compression fracture of T11-T12 vertebra, initial encounter for closed fracture Parathyroid Hormone Intact Today E55.9 - Vitamin D deficiency, unspecified, M19.90 - Unspecified osteoarthritis, unspecified site, M81.0 - Age-related osteoporosis without current pathological fracture Vitamin D 25-OH (D2 and D3) Today E55.9 - Vitamin D deficiency, unspecified, M19.90 - Unspecified osteoarthritis, unspecified site, M81.0 - Age-related osteoporosis without current pathological fracture Referrals Infusion Center Notification E78.9 - Disorder of lipoprotein metabolism, unspecified, M80.00XS - Age-related osteoporosis with current pathological fracture, unspecified site, sequela Medications: New diclofenac sodium 1% apply to hands and knees 4 grams topical QID 100 grams 3RF M19.90 - Unspecified osteoarthritis, unspecified site, M81.0 - Age-related osteoporosis without current pathological fracture calcium carbonate-vit D3-min 600 mg-10 mcg (400 unit) 1 tab PO BID 180 tabs 1RF M81.0 - Age-related osteoporosis without current pathological fracture zoledronic [id number] 5 mg/100 mL (Reclast) 5mg intravenously; 12 months 100 mL 3RF M81.0 - Age-related osteoporosis without current pathological fracture, S22.080A - Wedge compression fracture of T11-T12 vertebra, initial encounter for closed fracture zoledronic [id number]-mxlbr 5 mg/100 mL 5 mg IV ONCE 100 mL 0RF M80.00XS - Age-related osteoporosis with current pathological fracture, unspecified site, sequela, S22.080A - Wedge compression fracture of T11-T12 vertebra, initial encounter for closed fracture Changed From gabapentin 300 mg PO BID 90 days 180 caps 0RF E11.42 - Type 2 diabetes mellitus with diabetic polyneuropathy, M19.90 - Unspecified osteoarthritis, unspecified site To gabapentin 400 mg PO BID 90 days 180 caps 1RF E11.42 - Type 2 diabetes mellitus with diabetic polyneuropathy, M19.90 - Unspecified osteoarthritis, unspecified site Coding Level of Care Code Est Pt Level 4 (78860) Complex EM visit Add On G2211 Diagnoses Age-related osteoporosis with current pathological fracture, sequela M80.00XS Osteoporosis type: age-related Presence of current pathological fracture: with current pathological fracture Encounter type: sequela Primary osteoarthritis involving multiple joints M15.0 Osteoarthritis location: multiple joints Osteoarthritis type: primary
[2024-09-16 12:38] VITALS: BP 116/68; PULSE 93; BMI 24.6
== END 2024-09-16 13:14 | disposition home or self-care (01) ==
PROVIDERS: PCP Internal Medicine; Visit Provider Student in an Organized Health Care Education/Training Program
DX: M80.00XS Age-related osteoporosis with current pathological fracture, unspecified site, sequela (principal); M15.0 Primary generalized (osteo)arthritis
CPT/HCPCS: 99214; G2211

== ENCOUNTER 2024-12-12 12:08 | Outpatient (AMB) | payer MEDICARE, MEDICAID, SELFPAY ==
[2024-12-12 12:10] VITALS: BP 112/62; PULSE 94; O2SAT 94; BMI 25.3
--- NOTE | 2024-12-12 12:10 | MHC.PC.OV ---
Vital Signs 12/12/24 12:10 Height 5 ft 5 in Weight 152 lb 2 oz BMI 25.3 BP 112/62 Blood Pressure Location Lt brachial Position Sitting Pulse 94 Pulse Source Pulse Oximeter Pulse Oximetry (%) 94 Oxygen Delivery Method Room Air Intake Visit Reasons: 3M F/U Allergies metformin [METFORMIN] Allergy (Severe, Verified 12/12/24 12:22) BLOATING,DIARRHEA, diarrhea Fluoxetine Allergy (Intermediate, Verified 12/12/24 12:22) Diarrhea saxagliptin [Onglyza] Allergy (Intermediate, Verified 12/12/24 12:22) Diarrhea sitagliptin [Janumet XR] Allergy (Intermediate, Verified 12/12/24 12:22) Diarrhea bee sting Allergy (Intermediate, Uncoded 09/16/24 12:42) Swelling Medication List - Last Reconciled 12/12/24 by Sen Shukla MD allopurinol 300 mg PO DAILY baclofen 20 mg PO BEDTIME blood sugar diagnostic (FreeStyle Lite Strips) 3 TIMES A DAY calcium carbonate-vit D3-min 600 mg-10 mcg (400 unit) 1 tab PO BID diclofenac sodium 1% 4 grams topical QID dulaglutide (Trulicity) 3 mg (0.5 mL) subcut QWEEK empagliflozin (Jardiance) 25 mg PO DAILY gabapentin 400 mg PO BID 90 days hydrochlorothiazide 12.5 mg PO DAILY insulin degludec (Tresiba FlexTouch U-100 insulin) 26 units (0.26 mL) subcut DAILY 90 days levothyroxine 75 mcg PO DAILY 90 days lisinopril 2.5 mg PO DAILY 90 days oxcarbazepine 600 mg PO DAILY pen needle, diabetic (BD Mar 2nd Gen Pen Needle) once a day rosuvastatin 40 mg PO DAILY 90 days venlafaxine ER 150 mg PO DAILY zoledronic dvot-cjdpvadg-htahe 5 mg/100 mL (Reclast) 5mg intravenously; 12 months zolpidem ER 12.5 mg PO Tobacco use date assessed: 12/12/24 Fall risk assessment: 2 + Falls in past year Last assessed Fall Risk: 12/12/24 Dental Screening Dental Screen Date: 12/12/24 Did you have a dental visit in the last 12 months?: No Did you have a dental problem in the last 6 months where you did not have access to dental care?: No Was dental information given to patient?: Patient declined HPI 3M F/U HPI Details History - The patient is a 69-year-old female presenting with a follow-up appointment to assess ongoing health issues. - Reported history of diabetic neuropathy contributing to mobility challenges, may potentially qualify handicap placard. - Past spinal fractures, now healed, osteoporosis mentioned as a significant concern affecting mobility. - Shared concerns over residential change due to a significant rent increase at current apartment, necessitating a move to a long-term facility. Has a history of hypothyroidism, diabetes mellitus type 2, insomnia, depression, bipolar disorder, and peripheral neuropathy lipid disorder Complaining of pain right elbow which started spontaneously there was a lump there which has gone significantly better Patient have full range of motion in elbow without any pain but having difficulty lifting heavy objects Medication list reviewed Last set of labs reviewed done in September [facility] Nephrology Dr. Urban Parsons psychiatry Endocrinology [facility] Also seeing sales department supervisor Russ Skelton Neurology OBGYN for Pap smears and Gyne care. Associate Professor Of Medicine - Patient Instructions - Schedule and complete lab work in March as discussed. - Monitor arm and elbow condition for one more week, seek medical advice if no improvement is noticed. - Follow up on scheduled appointments with endocrinology and rheumatology in the coming months. - Confirm transportation arrangements for medical visits following relocation. - Continue current exercise routine as tolerated. Her paperwork was filled for [facility] for handicap placard Review of Systems - General: No fever no chills - Neurological: No headaches no dizziness - Ear nose throat: No sore throat no hearing difficulty no ear pain - Cardiovascular: No syncope, no chest pain, no palpitations - Gastrointestinal: No nausea vomiting or diarrhea - Endocrine: No polyuria polydipsia no heat intolerance - Genitourinary: No dysuria , no blood in urine Physical Exam General: No acute distress HEENT: No acute findings Neck: Supple Respiratory system: Able to talk in full sentences, no audible wheeze cardiovascular: S1-S2 regular in rate and rhythm Gastrointestinal: No pain Extremities: Right elbow flexion is difficult when holding something LIVESTOCK CARETAKER: Alert awake oriented x3 motor sensory intact Skin: Normal turgor [facility] Medical History Vitamin D deficiency Osteoarthritis Sacroiliitis Spondylosis of lumbar spine Depression, major, recurrent, moderate Renal calculi Overweight (BMI 25.0-29.9) Dyslipidemia Diabetic nephropathy associated with type 2 diabetes mellitus Diabetic neuropathy associated with type 2 diabetes mellitus nursing home (current) use of insulin Diabetes type 2, uncontrolled Diabetes mellitus Hypothyroidism Surgical History Hx of section Family History Father Cancer Mother Cancer Paternal Grandmother Diabetes Brother Mental health disorder Social History Household Members: None Housing: Apartment Alcohol intake: current Alcohol intake frequency: does not drink Patient Tobacco Use Status: Former Tobacco user Cigarettes Per Day: 20 Years Smoked: 20 e-Cigarette/Vaping Use: Never Used Substance Use Type: Former Substance User and Marijuana service: No Current occupational status: retired Cognitive needs: No Hearing needs: No Vision needs: Yes Questionnaire PHQ-9 Over the last 2 weeks, how often have you been bothered by any of the following problems? 68639 - PHQ-9 Billing: Patient declined-do not bill Source: Developed by Drs. Sina May, Janeth Rincon, Jomar Wilson and colleagues, with an educational yumi from [employer]. Thrive Questionnaire Date Thrive assessed: 12/12/24 I am a: Patient What is your living situation today?: I do not have a steady places to live I choose not to answer this question Within the past 12 months, did the food you bought not last and you didn't have the money to get more?: Often true Within the past 12 months, did you worry whether your food would run out before you got money to buy more?: Often true Do you have trouble paying for medicines?: Yes Do you have trouble getting transportation to medical appointments?: Yes Do you have trouble paying your heating and electricity bill?: Yes Do you have trouble taking care of your child, family member or friend?: No Do you have trouble with day-to-day activities such as bathing, preparing meals, shopping, managing finances, etc.?: Yes Are you currently unemployed and looking for a job?: No Are you interested in more education?: Yes Please select the resources that you would like help with: Housing/Senior Care, Food, Paying for medicine, Transportation, Utilities, Care for elder or disabled and Daily support Currently or been in a relationship where the following occur: I choose not to answer THRIVE Score: 5 AUDIT C Alcohol Use Questionnaire (AUDIT-C) 1. How often do you have a drink containing alcohol?: Monthly or less 2. How many drinks containing alcohol do you have on a typical day when you are drinking?: 1 or 2 3. How often do you have six or more drinks on one occasion?: Never Total Score: 1 Score Reviewed/Action Taken: Yes PAULO-7 AMB Questionnaire PAULO-7 Date PAULO - 7 assessed: 12/12/24 Feeling nervous, anxious, or on edge: 2 = More than half the days Not being able to stop or control worryin = More than half the days Worrying too much about different things: 2 = More than half the days Trouble relaxin = More than half the days Being so restless that it is hard to sit still: 2 = More than half the days Becoming easily annoyed or irritable: 2 = More than half the days Feeling afraid as if something awful might happen: 2 = More than half the days Total PAULO-7 score (0-4 normal; 5-9 mild; 10-14 moderate; 15-21 severe): 14 Source: Developed by Drs. Sina May, Janeth Rincon, Jomar Wilson and colleagues, with an educational yumi from [employer]. PAULO-7 Assessment Billing PAULO-7 Assessment Tool: PAULO-7 Assessment 74101 Physical exam (Primary Care) Vital Signs: Last Vital Signs Pulse 94 12/12/24 12:10 BP 112/62 12/12/24 12:10 Pulse Ox 94 12/12/24 12:10 Oxygen Delivery Method Room Air 12/12/24 12:10 BMI result Body Mass Index 25.3 Tobacco/Smoking Status: Tobacco use Status Tobacco use date assessed 12/12/24 12/12/24 12:24 Patient Tobacco Use Status Former Tobacco user 12/12/24 12:10 e-Cigarette/Vaping Use Never Used 12/12/24 12:10 Thrive Assessment: Date of Thrive Assessment Date Thrive assessed 12/12/24 12/12/24 12:24 Currently or been in a relationship where the following occur: I choose not to answer Coding Level of Care Code Est Pt Level 5 (15555) Diagnoses Lipid disorder E78.9 Type 2 diabetes mellitus with other neurologic complication, with long-term current use of insulin E11.49; Z79.4 Diabetes mellitus complication status: with neurologic complications Diabetes mellitus jail insulin use: with longwall foreman use Diabetes mellitus type: type 2 Diabetes mellitus complication detail: with other neurological complication Diabetic polyneuropathy associated with type 1 diabetes mellitus E10.42 Diabetes mellitus complication detail: diabetic polyneuropathy Diabetes mellitus type: type 1 Recurrent falls R29.6 Uses walking aid when standing alone R26.2; Z99.89 Vitamin D deficiency E55.9 Age-related osteoporosis with current pathological fracture, sequela M80.00XS Osteoporosis type: age-related Presence of current pathological fracture: with current pathological fracture Encounter type: sequela Diabetic nephropathy associated with type 2 diabetes mellitus E11.21 nursing home (current) use of insulin Z79.4 Acquired hypothyroidism E03.9 Hypothyroidism type: acquired Additional Codes PAULO-7 Assessment Billing - PAULO-7 Assessment Tool: PAULO-7 Assessment 06305 ([id number]) Assessment & Plan Assessment & Plan (1) Lipid disorder: Code(s): E78.9 - Disorder of lipoprotein metabolism, unspecified Category: Medical (2) Diabetes mellitus: Code(s): E11.9 - Type 2 diabetes mellitus without complications Category: Medical Qualifiers: Diabetes mellitus complication status: with neurologic complications Diabetes mellitus longwall foreman insulin use: with jail use Diabetes mellitus type: type 2 Diabetes mellitus complication detail: with other neurological complication Qualified Code(s): E11.49 - Type 2 diabetes mellitus with other diabetic neurological complication; Z79.4 - nursing home (current) use of insulin (3) Diabetic neuropathy: Code(s): E11.40 - Type 2 diabetes mellitus with diabetic neuropathy, unspecified Category: Medical Qualifiers: Diabetes mellitus complication detail: diabetic polyneuropathy Diabetes mellitus type: type 1 Qualified Code(s): E10.42 - Type 1 diabetes mellitus with diabetic polyneuropathy (4) Recurrent falls: Code(s): R29.6 - Repeated falls Category: Medical (5) Uses walking aid when standing alone: Code(s): R26.2 - Difficulty in walking, not elsewhere classified; Z99.89 - Dependence on other enabling machines and devices Category: Medical (6) Vitamin D deficiency: Code(s): E55.9 - Vitamin D deficiency, unspecified Category: Medical (7) Osteoporosis: Code(s): M81.0 - Age-related osteoporosis without current pathological fracture Category: Medical Qualifiers: Osteoporosis type: age-related Presence of current pathological fracture: with current pathological fracture Encounter type: sequela Qualified Code(s): M80.00XS - Age-related osteoporosis with current pathological fracture, unspecified site, sequela (8) Diabetic nephropathy associated with type 2 diabetes mellitus: Code(s): E11.21 - Type 2 diabetes mellitus with diabetic nephropathy Category: Medical (9) 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 - Reported history of diabetic neuropathy contributing to mobility challenges, may potentially qualify handicap alok. - Past spinal fractures, now healed, osteoporosis mentioned as a significant concern affecting mobility. - Shared concerns over residential change due to a significant rent increase at current apartment, necessitating a move to a long-term facility. Has a history of hypothyroidism, diabetes mellitus type 2, insomnia, depression, bipolar disorder, and peripheral neuropathy lipid disorder Complaining of pain right elbow which started spontaneously there was a lump there which has gone significantly better Patient have full range of motion in elbow without any pain but having difficulty lifting heavy objects Medication list reviewed Last set of labs reviewed done in September [facility] Nephrology Dr. Urban Parsons psychiatry Endocrinology [facility] Also seeing sales department supervisor Russ Skelton Neurology OBGYN for Pap smears and Gyne care. Associate Professor Of Medicine - Patient Instructions - Schedule and complete lab work in March as discussed. - Monitor arm and elbow condition for one more week, seek medical advice if no improvement is noticed. - Follow up on scheduled appointments with endocrinology and rheumatology in the coming months. - Confirm transportation arrangements for medical visits following relocation. - Continue current exercise routine as tolerated. Her paperwork was filled for [facility] for handicap alok 41 minutes spent in care of this patient including [id number] and paperwork Orders: Orders Comprehensive [facility]. Panel Fast Today E10.42 - Type 1 diabetes mellitus with diabetic polyneuropathy, E11.9 - Type 2 diabetes mellitus without complications, E78.9 - Disorder of lipoprotein metabolism, unspecified, R26.2 - Difficulty in walking, not elsewhere classified, R29.6 - Repeated falls, Z99.89 - Dependence on other enabling machines and devices Lipid Panel Today E10.42 - Type 1 diabetes mellitus with diabetic polyneuropathy, E11.9 - Type 2 diabetes mellitus without complications, E78.9 - Disorder of lipoprotein metabolism, unspecified, R26.2 - Difficulty in walking, not elsewhere classified, R29.6 - Repeated falls, Z99.89 - Dependence on other enabling machines and devices
--- OUTSIDE RECORDS SUMMARY | 2024-12-12 13:52 | XMS_ITS | Encounter Summary ---
Author Organization [facility] Address [address] [place] [address] Phone Care Team Providers Care Superintendent Laundry Name Role Phone Sen Shukla MD Primary Care Provider [phone] Encounter Details Date Type Department Care Team (Late Contact Info) Description 11/29/2021 Documentation Only [facility] [address] [place] [address] Carrie Michele [address] [place] [id number] Social History Tobacco Use Types Packs/Day Years Used Date Smoking Tobacco: Never Alcohol Use Standard Drinks/Week Comments No 0 (1 standard drink = 0.6 oz pur e alcohol) Comments Unknown Sex and Gender Information Value Date Recorded Sex Assigned at Not on file Legal Sex Female 4:32 PM EST Gender Identity Not on file Sexual Orientation Not on file documented as of this encounter Plan of Treatment Upcoming Encounters Date Type Department Care Team (Late st Contact Info) Description 02/26/2025 11:00 AM EDT Office Visit [facility] [address] [place] [address] Maxwell Guerrero MD [address] [place] [address] [place] [address] documented as of this encounter Visit Diagnoses Not on filedocumented in this encounter Care Teams Superintendent Laundry Relationship Specialty Start Date End Date Sen Shukla MD [address] [place] [address] PCP - General Internal Medicine 11/28/21 documented as of this encounter
--- OUTSIDE RECORDS SUMMARY | 2024-12-12 13:52 | XMS_ITS | Encounter Summary ---
Author Organization [facility] Address [address] [place] [address] Phone Care Team Providers Care Casualty Insurance Claim Adjuster Name Role Phone Sen Shukla MD Primary Care Provider [phone] Reason for Visit * Reason Comments Med Refill Encounter Details Date Type Department Care Team (Late st Contact Info) Description 11/26/2024 Refill [facility] [address] [place] [address] Maxwell Guerrero MD [address] [place] [address] [place] [address] Social History Tobacco Use Types Packs/Day Years [...] Visit [facility] [address] [place] [address] Maxwell Guerrero MD [address] [place] [address] [place] [address] documented as of this encounter Visit Diagnoses Not on filedocumented in this encounter Care Teams Casualty Insurance Claim Adjuster Relationship Specialty Start Date End Date Sen Shukla MD [address] [facility] [place] [address] PCP - General Internal Medicine 11/28/21 documented as of this encounter
--- OUTSIDE RECORDS SUMMARY | 2024-12-12 13:52 | XMS_ITS | Clinical Summary ---
Author Organization [facility] Address [address] [id number] Care Team Providers Care Valve Maker Name Role Phone Antoinette Fox DO Primary Care Provider [phone] Allergies Active Allergy Reactions Criticality Noted Date Comments Bee Sting 11/14/2017 Buspirone 12/11/2017 Fluoxetine 11/14/2017 Glipizide 12/11/2017 Sitagliptin-Metformin Hcl Er 018 Metformin Diarrhea 11/14/2017 Saxagliptin 11/14/2017 Tramadol 12/11/2017 Medications Medication Sig Dispensed Refills Start Date End Date Status allopurinol (ZYLOPRIM) 300 MG tablet TAKE 1 TABLET BY MOUTH EVERY DAY 11 10/18/2017 Active atorvastatin (LIPITOR) tablet 80 mg TAKE 1 TABLET BY MOUTH EVERY DAY 10/10/2017 Active baclofen (LIORESAL) 20 MG tablet TAKE 1 TABLET BY MOUTH 3 TIMES A DAY WITH FOOD OR MILK 2 10/24/2017 Active gabapentin (NEURONTIN) 300 MG capsule Take 600 mg by mouth 3 (three) times a day. 3 10/19/2017 Active hydroCHLOROthiazi de (MICROZIDE) 12.5 MG capsule TAKE ONE CAPSULE BY MOUTH EVERY DAY 10/18/2017 Active ibuprofen (ADVIL,MOTRIN) 600 MG tablet TAKE 1 TABLET BY MOUTH WITH FOOD OR MILK ONCE A DAY NEEDED 1 08/10/2017 Active TRESIBA FLEXTOUCH 100 UNIT/ML SOPN INJECT 50 UNITS ONCE DAILY AT BEDTIME 10/19/2017 Active LANTUS SOLOSTAR 100 UNIT/ML injection INJECT 50 UNITS DAILY SUBCUTANEOUSLY 30 DAYS 10/18/2017 Active lisinopril (PRINIVIL,ZESTRIL ) tablet 2.5 mg TAKE 1 TABLET BY MOUTH EVERY DAY 10/18/2017 Active OXcarbazepine (TRILEPTAL) 300 MG tablet TAKE 1 TABLET BY MOUTH IN THE MORNING & 2 AT BEDTIME 2 10/10/2017 Active venlafaxine (EFFEXOR-XR) 75 MG 24 hr capsule 1 CAPSULE BY MOUTH DAILY AT BEDTIME 1 09/04/2017 Active Multiple Vitamins-Minerals (MULTIVITAMIN ADULTS 50+ PO) Take by mouth daily. 0 Active TRULICITY 1.5 MG/0.5ML SOPN Inject 1.5 mg under the skin once a week. 11 12/03/2017 Active levothyroxine (SYNTHROID, LEVOXYL) tablet 88 mcg Take 1 tablet (88 mcg total) by mouth daily. 90 tablet 3 02/01/2018 Active zolpidem (AMBIEN) 10 MG tablet Take 10 mg by mouth every night at bedtime as needed for sleep. 0 Active Misc. Devices (BATH/SHOWER SEAT) MISCIndications:A t high risk for falls Use as directed when taking a shower Height 5'4 Length 181lb Length of Need 99 months 1 each 0 07/26/2018 Active Misc. Devices (CANE) MISCIndications:A t high risk for falls Use as directed when ambulating. 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 History of tobacco abuse Overview: 30 pack year; Lung Ca screenin02/2016 small bilat pulm nodules Lung-RADS cat 2 repeat 02/2017 Fatty liver disease, nonalcoholic Diabetic eye exam Overview: 01/2015: No DR, 03/[address], 04/[address] Barboza Bipolar 1 disorder Overview: Dr Croft Immunizations Name Administration Dates Next Due Pneumococcal Conjugate PCV13 08/03/2016 Pneumococcal Polysaccharide PPSV23 07/22/2015 QUADRIVALENT, STANDARD-DOSE, INTRADERMAL, PRESERVATIVE FREE (Intradermal IIV4) 06/06/2018 Tdap 09/18/2017 Family History Medical History Relation Name Comments COPD Brother Brain cancer Father Cancer Father brain,kidney,sharita ne cancer Cancer Mother pancreatic Pancreatic cancer Mother Anxiety disorder Son Depression Son Relation Name Status Comments Brother Daughter IFG, hypothyroi dism Father Mother Son Social History Tobacco Use Types Packs/Day Years Used Date Smoking Tobacco: Former Cigarettes 1 30 Smokeless Tobacco: Never Alcohol Use Standard Drinks/Week Comments No 0 (1 standard drink = 0.6 oz pur e alcohol) Sex and Gender Information Value Date Recorded Sex Assigned at Not on file Gender Identity Not on file Sexual Orientation Not on file Last Filed Vital Signs Vital Sign Reading Time Taken Comments Blood Pressure 110/70 07/02/2018 8:08 AM EDT Pulse 88 07/02/2018 8:08 AM EDT Temperature 36.8 ??C (98.3 ??F) 07/02/2018 8:08 AM ED T Respiratory Rate 14 12/11/2017 12:58 PM EST Oxygen Saturation 97% 07/02/2018 8:08 AM EDT Inhaled Oxygen Concentration - - Weight 82.1 kg (181 lb) 07/02/2018 8:08 AM EDT Height 162.6 cm (5' 4 ) 07/02/2018 8:08 AM EDT Body Mass Index 31.07 07/02/2018 8:08 AM EDT Plan of Treatment Health Maintenance Due Date Last Done Comments Hepatitis C Screening 1955 COVID-19 Vaccine (#1) 1955 Shingrix-Zoster Vaccine (1 of 2) 2005 RSV Adult > 60+ Yrs or (1 - Risk 60-74 years 1-dose series) 2015 Breast Cancer Screening (Mammogram) 08/10/2018 08/10/2016, 11/12/2014 Depression Screening 07/02/2019 07/02/2018, 03/14/2018 (Declined) Preventative Health Evaluation 07/02/2019 07/02/2018 Diabetes: Foot Exam 07/30/2019 07/30/2018, 8 Hemoglobin A1C Due 08/09/2019 02/06/2019, 1 , 02/12/2018, Additional history exists Diabetes: Eye Exam (No Retinopathy) 11/21/2019 11/21/2017 Diabetes: Microalbumin Test 02/07/2020 05/0 11/2018, 11/21/2017, 11/10/2016 Fall Risk Assessment 2020 07/02/2018 Osteoporosis Screening (DEXA Scan) 2020 Pneumococcal Vaccine (3 of 3 - PPSV23 or PCV20) 07/22/2020 08/03/2016, 07/22/2015 Influenza Vaccine (#1) 2024 06/06/2018 DTap / Tdap / Td (2 - Td or Tdap) 09/18/2027 09/18/2017 Colon Cancer Screening (Colonoscopy) 04/01/2028 04/01/2018, 03/14/2018 (Declined), 07/13/2006 Hepatitis B Vaccines Aged Out No long er eligible based on patient's age to complete this topic RSV Ped < 20 months Aged Out No longe r eligible based on patient's age to complete this topic Care Teams Valve Maker Relationship Specialty Start Date End Date Antoinette Fox DO PCP - General Family Medicine 12/11/17
--- OUTSIDE RECORDS SUMMARY | 2024-12-12 13:52 | XMS_ITS | Encounter Summary ---
Author Organization [facility] Address [address] [place] [address] Phone Care Team Providers Care Transmitter Chief Name Role Phone Sen Shukla MD Primary Care Provider [phone] Encounter Details Date Type Department Care Team (Late Contact Info) Description 09/08/2024 Documentation Only [facility] [address] [place] [address] Carrie Michele [address] [place] [phone] Social History Tobacco Use Types Packs/Day [...] Visit [facility] [address] [place] [address] Maxwell Guerrero MD [address] [place] [address] [place] [address] documented as of this encounter Visit Diagnoses Not on filedocumented in this encounter Care Teams Transmitter Chief Relationship Specialty Start Date End Date Sen Shukla MD [address] [place] [address] PCP - General Internal Medicine 11/28/21 documented as of this encounter
--- OUTSIDE RECORDS SUMMARY | 2024-12-12 13:52 | XMS_ITS | Encounter Summary ---
Author Organization [facility] Address [address] [place] [address] Phone Care Team Providers Care Training Specialist Name Role Phone Sen Shukla MD Primary Care Provider [phone] Reason for Visit * Reason Comments Med Refill Encounter Details Date Type Department Care Team (Late st Contact Info) Description 07/09/2023 Refill [facility] [address] [place] [address] Sascha Pressley MD [address] [place] [address] [place] [address] Social History Tobacco Use Types [...] Visit [facility] [address] [place] [address] Maxwell Guerrero MD [address] [place] [address] [place] [address] documented as of this encounter Visit Diagnoses Not on filedocumented in this encounter Care Teams Training Specialist Relationship Specialty Start Date End Date Sen Shukla MD [address] [place] [address] PCP - General Internal Medicine 11/28/21 documented as of this encounter
--- OUTSIDE RECORDS SUMMARY | 2024-12-12 13:52 | XMS_ITS | Clinical Summary ---
Author Organization [facility], Address [address] [place] [address] [place] [address] Phone Care Team Providers Care Chinese Language Professor Name Role Phone Sen Shukla MD Primary Care Provider [phone] Allergies Active Allergy Reactions Criticality Noted Date Comments Bee Pollen 11/14/2017 Bee Venom 11/14/2017 Buspirone 12/11/2017 Fluconazole Other (see comments) 10/29/2020 Fluoxetine 11/14/2017 Glipizide 12/11/2017 Lactose Other (see comments) 10/29/2020 Metformin Diarrhea,Other (see comments) 11/14/2017 Saxagliptin 11/14/2017 Sitagliptin-Metformin Hcl Er 018 Tramadol 12/11/2017 Medications atorvastatin (LIPITOR) 40 MG tablet 09/21/20 19 Active baclofen (LIORESAL) 20 MG tablet 08/06/20 19 Active TRULICITY 1.5 MG/0.5ML solution pen-injector 06/26/20 19 Active Empagliflozin (JARDIANCE) 25 MG tablet Take 1 tablet by mouth 1 (one) time each day 09/14/20 17 Active gabapentin (NEURONTIN) 300 MG capsule Take 2 capsules by mouth 3 (three) times a day 10/19/19 18 Active FREESTYLE LITE test strip TEST 3 TIMES A DAY DIRECTED 08/31/20 19 Active TRESIBA FLEXTOUCH 100 UNIT/ML injection 09/01/20 19 Active insulin glargine (LANTUS SOLOSTAR) 100 UNIT/ML injection INJECT 50 UNITS DAILY SUBCUTANEOUSLY 30 DAYS 10/18/19 18 Active lisinopril (PRINIVIL,ZES TRIL) 2.5 MG tablet 08/22/20 19 Active OXcarbazepine (TRILEPTAL) 600 MG tablet Comments: Patient Notes: Take a HALF tablet every morning and ONE FULL tablet every evening Duration: 1 Active venlafaxine XR (EFFEXOR-XR) 37.5 MG 24 hr capsule Take 1 capsule by mouth every morning 06/26/20 18 Active zolpidem CR (AMBIEN CR) 12.5 MG CR tablet Take 1 tablet by mouth 1 (one) time each day Active levothyroxine (SYNTHROID, LEVOTHROID) 88 MCG tablet Take 1 tablet (88 mcg total) by mouth 1 (one) time each day 90 tablet 11/21/19 23 Active allopurinol (ZYLOPRIM) 300 MG tablet Take 1 tablet (300 mg total) by mouth 1 (one) time each day 90 tablet 3 02/26/20 24 Active hydroCHLOROth iazide 12.5 MG tablet TAKE 1 TABLET BY MOUTH 1 TIME EACH DAY. 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 Insomnia 09/22/2019 Low back pain 09/22/2019 Non-alcoholic fatty liver 09/22/2019 Osteopenia 09/22/2019 Overview (09/22/2019): DEXA: 11/2014 t-2.0 LS spine FRAX 7.8%/0.6% Renal disorder due to type 2 diabetes mellitus 1 11/23/2018 Patient encounter status 09/22/2019 Overview (09/22/2019): 01/2015: No DR, 03/2016 No , 04/[address] Barboza Uncontrolled type 2 diabetes mellitus 09/22/2019 Overview (07/08/2024): Replacing diagnoses that were inactivated after the 07/08/24 Regulatory Import Nephropathy due to secondary diabetes mellitus 1 Overview (09/22/2019): Rx PATRICIA Erosive esophagitis 07/08/2006 Overview (09/22/2019): EGD: Moderate erosive distal esophagitis Dr Low Encounters Date Type Department Care Team Description 11/26/2024 Refill [facility], [address] [place] [address] Maxwell Guerrero MD 09/24/2024 Documentation Only [facility], [address] [place] [phone] Onel Martinez MA PT 1 transportation from Last 3 Months Immunizations Name Administration Dates Next Due Pneumococcal Conjugate 13-Valent 08/03/2016 Pneumococcal Polysaccharide 07/22/2015 Tdap 09/18/2017 Family History Medical History Relation Comments Cancer Father 2 Kidney Dementia Father 2 Grandfather Diabetes Father 2 Grandmother Kidney disease Father 2 Kidney Cancer Cancer Mother 2 Pancreatic grand mother with uterine Dementia Mother 2 Grandmother Diabetes Mother 2 Relation Status Comments Father 1 Father 2 Mother 1 Mother 2 Social History Tobacco Use Types Packs/Day Years [...] Sign Reading Time Taken Comments Blood Pressure 120/80 09/22/2019 2:54 PM EST Pulse - - Temperature - - Respiratory Rate - - Oxygen Saturation - - Inhaled Oxygen Concentration - - Weight 81.2 kg (179 lb) 09/22/2019 2:54 PM EST Height 165.1 cm (5' 5 ) 09/16/2018 12:01 PM EST Body Mass Index 29.79 09/16/2018 12:01 PM EST Plan of Treatment Upcoming Encounters Date Type Department Care Team (Late st Contact Info) Description 02/26/2025 11:00 AM EDT Office Visit [facility], [address] [place] [address] Maxwell Guerrero MD [address] [place] [address] Health Maintenance Due Date Last Done Comments Breast Cancer Screening 1955 Colorectal Cancer Screening: Annual FOBT 2004 Colorectal Cancer Screening: Colonoscopy 2004 Colorectal Cancer Screening: Sigmoidoscopy 2004 Diabetes: Hemoglobin A1C 09/22/2019 Diabetes: Ophthalmology Exam 09/22/2019 Diabetes: Pedal Pulse Checked 09/22/2019 Diabetes: Sensory Foot Exam 09/22/2019 Diabetes: Visual Foot Exam 09/22/2019 Pneumococcal Vaccine: 65+ Years (3 of 3 - PPSV23 or PCV20) 07/22/2020 08/03/2016, 07/22/2015 Influenza Vaccine (#1) 2024 Hepatitis B Vaccine Aged Out No longe r eligible based on patient's age to complete this topic Insurance [place]ICAID [place]ICARE Care Teams Chinese Language Professor Relationship Specialty Start Date End Date Sen Shukla MD [facility] [place] [facility] [place] [address] PCP - General Internal Medicine 11/28/21
--- OUTSIDE RECORDS SUMMARY | 2024-12-12 13:52 | XMS_ITS | Encounter Summary ---
Author Organization [facility] Address [address] [place] [address] Phone Care Team Providers Care Face Painter Name Role Phone Sen Shukla MD Primary Care Provider [phone] Encounter Details Date Type Department Care Team (Late Contact Info) Description 11/28/2021 Documentation Only [facility] [address] [place] [address] Carrie Michele [address] [place] [address] Social History Tobacco Use Types Packs/Day [...] Visit [facility] [address] [place] [address] Maxwell Guerrero MD [address] [place] [address] [place] [address] documented as of this encounter Visit Diagnoses Not on filedocumented in this encounter Care Teams Face Painter Relationship Specialty Start Date End Date Sen Shukla MD [address] [place] [address] PCP - General Internal Medicine 11/28/21 documented as of this encounter
== END 2024-12-12 12:42 | disposition home or self-care (01) ==
PROVIDERS: PCP Internal Medicine; Visit Provider Internal Medicine
DX: E78.9 Disorder of lipoprotein metabolism, unspecified (principal); E11.49 Type 2 diabetes mellitus with other diabetic neurological complication; Z79.4 Long term (current) use of insulin; E11.42 Type 2 diabetes mellitus with diabetic polyneuropathy; R29.6 Repeated falls; R26.2 Difficulty in walking, not elsewhere classified; E11.21 Type 2 diabetes mellitus with diabetic nephropathy; Z99.89 Dependence on other enabling machines and devices; E55.9 Vitamin D deficiency, unspecified; M80.00XS Age-related osteoporosis with current pathological fracture, unspecified site, sequela; E03.9 Hypothyroidism, unspecified

== ENCOUNTER → 2024-12-12 12:08 | Outpatient (BNVA) | payer MEDICARE, MEDICAID, SELFPAY | PROVIDERS: PCP Internal Medicine; Visit Provider Internal Medicine | DX: E78.9 Disorder of lipoprotein metabolism, unspecified (principal); E11.49 Type 2 diabetes mellitus with other diabetic neurological complication; E11.42 Type 2 diabetes mellitus with diabetic polyneuropathy; E11.21 Type 2 diabetes mellitus with diabetic nephropathy; R29.6 Repeated falls; E03.9 Hypothyroidism, unspecified; M80.00XS Age-related osteoporosis with current pathological fracture, unspecified site, sequela; Z79.4 Long term (current) use of insulin; Z99.89 Dependence on other enabling machines and devices | CPT/HCPCS: 96127; 99212 ==

== ENCOUNTER 2024-12-30 12:24 | Outpatient (AMB) | payer MEDICARE, MEDICAID, SELFPAY ==
--- NOTE | 2024-12-30 12:20 | A.OFFVIS_ITS ---
Vital Signs 12/30/24 12:31 Height 5 ft 5 in Weight 147 lb 11.355 oz BMI 24.6 BP 116/74 Blood Pressure Location Rt brachial Position Sitting Pulse 77 Pulse Source Pulse Oximeter Pulse Oximetry (%) 99 Oxygen Delivery Method Room Air Intake Visit Reasons: T2DM Intake Note: Patient presents today for a follow-up on Type 2 Diabetes Mellitus: Last Diabetic eye exam was on: DUE Last Podiatry exam was on: Patient does not see a Machine Filler Shredder Most recent HbA1c: 6.6%, 12/30/2024 Random Glucose- 185 mg/dL, Today Food Service Order Clerk Required: No Accompanied by: Self / Same As Patient Allergies metformin [METFORMIN] Allergy (Severe, Verified 12/12/24 12:22) BLOATING,DIARRHEA, diarrhea Fluoxetine Allergy (Intermediate, Verified 12/12/24 12:22) Diarrhea saxagliptin [Onglyza] Allergy (Intermediate, Verified 12/12/24 12:22) Diarrhea sitagliptin [Janumet XR] Allergy (Intermediate, Verified 12/12/24 12:22) Diarrhea bee sting Allergy (Intermediate, Uncoded 09/16/24 12:42) Swelling HPI Comments Details: Patient is 69-year-old female with DM type 2 and hypothyroidism who presents for management. The patient was last seen in Endocrinology 07/03/24 with an A1C of 7%. Hgb A1C 12/30/24 6.6%. 1) Diabetes She has diabetes type 2 diagnosed in 2015. Micro and macrovascular complications: neuropathy, has had nephropathy in the past, has prior h/o renal stones She did not tolerate Synjardy as she had diarrhea. She had diarrhea with metformin. She did not tolerate acarbose. Lantus didn't work well and had lows over night Diabetes medications: Tresiba 26 units Trulicity 3.0mg weekly Jardiance 25 mg Freestyle gerald sensor 3 average glucose: 163 14 day continuous glucose sensor report reviewed Glucose Management indicator 7.2 % Time CGM active 100 % TIme in ranges: 8 % very high (above 250) 22 % high (181-250) 70 % in range (70-180] 0 % low (69-55) 0 % very low (below 54) Interpretation of CGMS [ IN TARGET RANGE FOR HER AGE GROUP] No Nephropathy currently, but reports + in the past, she is followed by neph and has a h/o stones, 06/11/24 eGFR >60, 12/06/23: microalbumin 11 Neuropathy: + numbness, tingling, cramping in lower extremities, has not been seen by podiatry recently. She does get care through [email or web address] Retinopathy:has seen retinal specialist in [place], last eye exam: had one in 2023 earlier in the year, opth retired. SHE WOULD LIKE TO LOOK AT OPH THALMOLOGIST IN HER AREA AND WE WILL GET BACK TO US IF SHE NEEDS A REFERRAL other specialist: neurology Hypoglycemia: none recent Hyperglycemia: + urinary frequency, occasional nocturia, + polydypsia Exercise: walks with others difficult due to balance and vision issues Document Advisor - CDE education: today 2) Hypothyroidism Patient has had hypothyroidism since 2014. Medications: currently on LT4 75 mcg (adjusted downward last fall from 88 mcg due to a suppressed TSH) Takes fasting am 1-2 hours before other meds or eating. Never forgets. Most recent TSH 09/16/24 1.28 Denies thyroid surgery or biopsy. Denies biotin use. Symptoms: Reports heat intolerance, insomnia, fatigue, dry skin, ,tremors. Denies weight loss, diarrhea, constipation, dysphagia, dyspnea, dysphonia, , palpitations, irritability, anxiety. Family History: maternal and paternal grandmothers had thyroid disease. 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 Diabetes type 2, uncontrolled Diabetes mellitus Hypothyroidism Surgical History Hx of section Family History Father Cancer Mother Cancer Paternal Grandmother Diabetes Brother Mental health disorder Social History Household Members: None Housing: Apartment Alcohol intake: current Alcohol intake frequency: does not drink Patient Tobacco Use Status: Former Tobacco user Cigarettes Per Day: 20 Years Smoked: 20 e-Cigarette/Vaping Use: Never Used Substance Use Type: Former Substance User and Marijuana service: No Current occupational status: retired Cognitive needs: No Hearing needs: No Vision needs: Yes Physical Exam Const Other: Absence of Cushingoid features. Absence of acromegalic features. Neck exam reveals nl size thyroid about 15 gms. No thyroid nodules palpable. Heart S1 S2, Reg R/R. No M/R G. Skin exam reveals absence of vitiligo or acanthosis nigricans. Visual exam of foot performed. No ulcerations or open lesions. No inter digit maceration or fissuring. No onychomycosis, no callouses. Sensation diminished to monofilament exam. Vibratory sensation is normal with 128 Hz tuning fork. Office Procedures Glucose Monitoring Details Details: see [facility] [id number] - Glucose monitoring, continuous-physician I&R Procedure code (CPT) selection complete Results AMB Hemoglobin A1c AMB Hemoglobin A1c 6.6 % Last Edit by CARMENZA Vivar on 12/30/24 12:47 Assessment & Plan Assessment & Plan (1) Diabetes mellitus: Code(s): E11.9 - Type 2 diabetes mellitus without complications Category: Medical Qualifiers: Diabetes mellitus complication detail: with other neurological complication Diabetes mellitus complication status: with neurologic com plications Diabetes mellitus usp insulin use: with terminal make up operator use Diabetes mellitus type: type 2 Qualified Code(s): E11.49 - Type 2 diabetes mellitus with other diabetic neurological complication; Z79.4 - nursing home (current) use of insulin Plan: 69-year-old type 2 diabetic with neuropathy, retinopathy and previous nephropathy with the an A1c of 6.6% without any lows. Continue current medications. The 1st few days she moves to her new apartment she will reduce Tresiba 4-6 units as she anticipates she will be moving more. She will contact us if she needs a referral to her new wafer fabrication technician once she picks one out. The patient had an opportunity to ask questions regarding treatment plan. The patient expressed understanding and agreement with the above treatment plan. The patient is aware they should contact our office by phone for worsening glu cose readings or for any low blood sugars which may warrant a change in diabetes medication. Compliance is encouraged with medications and any followup testing/consults which may have been ordered. Orders: Orders AMB Hemoglobin A1c Today E11.42 - Type 2 diabetes mellitus with diabetic poly neuropathy AMB Glucose Monitoring Today E11.49 - Type 2 diabetes mellitus with other diabetic neurological complication, Z79.4 - nursing home (current) use of insulin Medications: Refilled insulin degludec (Tresiba FlexTouch U-100 insulin) 26 units (0.26 mL) subcut DAILY 90 days 24 mL 3RF dulaglutide (Trulicity) 3 mg (0.5 mL) subcut QWEEK 2 mL 11RF E11.42 - Type 2 diabetes mellitus with diabetic polyneuropathy Patient Instructions: Take 15 carb carbohydrate grams to treat a low sugar (3-4 glucose tablets, half a glass of juice or 15 carbohydrate grams of soft candy such as gummie snacks). Recheck your sugar in 15 minutes and re-treat again with 15 carbohydrate grams if low or still with symptoms. Do not drive a car or operate machinery if you do not know what your blood sugar is, if it is low or in excess of 300. The patient was counseled to achieve a target A1C of 7% (154 avg). Fasting blood sugars should be 90-130 in the morning and less than 180 two hours after meals. Reviewed the relationship between poor diabetic control and the development of complications. Check your feet daily looking for any signs of infection, drainage, redness, ulceration and seek medical attention if this occurs. Break in shoes gradually and do not wear open-toed shoes or walk stocking footed or barefooted. Coding Level of Care Code Est Pt Level 4 (35675) Complex EM visit Add On G2211 Diagnoses Type 2 diabetes mellitus with other neurologic complication, with long-term current use of insulin E11.49; Z79.4 Diabetes mellitus complication detail: with other neurological complication Diabetes mellitus complication status: with neurologic complications Diabetes mellitus usp insulin use: with terminal make up operator use Diabetes mellitus type: type 2 CPT Codes Details - CPT: 78510 - Glucose monitoring, continuous-physician I&R ([id number]) Time Spent (min) 30 Comment Time spent reviewing labs/provider notes, glucose,sensor reports, face to face, chart doc
[2024-12-30 12:31] VITALS: BP 116/74; PULSE 77; O2SAT 99; BMI 24.6
[2024-12-30 13:18] LABS: Glucose, Whole Blood 185 mg/dL (60-115)
--- OUTSIDE RECORDS SUMMARY | 2024-12-30 15:05 | XMS_ITS | Encounter Summary ---
Author Organization [facility] Address [address] [place] [address] Phone Care Team Providers Care Pharmaceutical Plant Operator Name Role Phone Sen Shukla MD Primary Care Provider [phone] Encounter Details Date Type Department Care Team (Late Contact Info) Description 11/28/2021 Documentation Only [facility] [address] [place] [address] Carrie Michele [address] [place] [phone] Social History Tobacco Use Types Packs/Day [...] Visit [facility] [address] [place] [address] Maxwell Guerrero MD [address] [place] [address] [place] [address] documented as of this encounter Visit Diagnoses Not on filedocumented in this encounter Care Teams Pharmaceutical Plant Operator Relationship Specialty Start Date End Date Sen Shukla MD [address] [place] [address] PCP - General Internal Medicine 11/28/21 documented as of this encounter
--- OUTSIDE RECORDS SUMMARY | 2024-12-30 15:05 | XMS_ITS | Clinical Summary ---
Author Organization [facility] [place], Address [address] [place] [address] [place] [address] Phone Care Team Providers Care Charge Nurse Name Role Phone Sen Shukla MD Primary Care Provider [phone] Allergies Active Allergy Reactions Criticality Noted Date [...] each day 90 tablet 11/21/19 23 Active hydroCHLOROth iazide 12.5 MG tablet TAKE 1 TABLET BY MOUTH 1 TIME EACH DAY. 90 tablet 3 11/26/19 25 Active allopurinol (ZYLOPRIM) 300 MG tablet TAKE 1 TABLET BY MOUTH 1 TIME EACH DAY. 90 tablet 3 12/27/19 25 Active allopurinol (ZYLOPRIM) 300 MG tablet Take [...] encounter status 09/22/2019 Overview (09/22/2019): 01/2015: No , 03/2016 No , 04/[address] Barboza Uncontrolled type 2 diabetes mellitus 09/22/2019 Overview (07/08/2024): Replacing diagnoses that were inactivated after the 07/08/24 Regulatory Import Nephropathy due to secondary diabetes mellitus 1 Overview (09/22/2019): Rx PATRICIA Erosive esophagitis 07/08/2006 Overview (09/22/2019): EGD: Moderate erosive distal esophagitis Dr Low Encounters Date Type Department Care Team Description 12/25/2024 Refill [facility], [address] [place] [address] Maxwell Guerrero MD 11/26/2024 Refill [facility] [place], [address] [place] [address] Maxwell Guerrero MD from Last 3 Months Immunizations Name Administration [...] Visit [facility] [place], [address] [place] [address] Maxwell Guerrero MD [address] [place] [address] Health Maintenance Due Date Last Done Comments [...] topic Insurance [place]ICAID [place]ICARE Care Teams Charge Nurse Relationship Specialty Start Date End Date Sen Shukla MD [address] [place] [id number] PCP - General Internal Medicine 11/28/21
--- OUTSIDE RECORDS SUMMARY | 2024-12-30 15:05 | XMS_ITS | Encounter Summary ---
Author Organization [facility] Address [address] [place] [address] Phone Care Team Providers Care Blister Rust Eradicator Name Role Phone Sen Shukla MD Primary Care Provider [phone] Encounter Details Date Type Department Care Team (Late Contact Info) Description 11/29/2021 Documentation Only [facility] [address] [place] [address] Carrie Michele [address] [place] [phone] Social History Tobacco Use Types Packs/Day [...] Visit [facility] [address] [place] [address] Maxwell Guerrero MD [address] [place] [address] [place] [address] documented as of this encounter Visit Diagnoses Not on filedocumented in this encounter Care Teams Blister Rust Eradicator Relationship Specialty Start Date End Date Sen Shukla MD [address] [place] [address] PCP - General Internal Medicine 11/28/21 documented as of this encounter
--- OUTSIDE RECORDS SUMMARY | 2024-12-30 15:05 | XMS_ITS | Encounter Summary ---
Author Organization [facility] Address [address] [place] [address] Phone Care Team Providers Care Facility Administrator Name Role Phone Sen Shukla MD Primary Care Provider [phone] Reason for Visit * Reason Comments Med Refill Encounter Details Date Type Department Care Team (Late st Contact Info) Description 12/25/2024 Refill [facility] [address] [place] [address] Maxwell Guerrero MD [address] [place] [address] [place] [address] Social History Tobacco Use Types [...] Visit [facility] [address] [place] [address] Maxwell Guerrero MD [address] [place] [address] [place] [address] documented as of this encounter Visit Diagnoses Not on filedocumented in this encounter Care Teams Facility Administrator Relationship Specialty Start Date End Date Sen Shukla MD [address] [facility] [place] [address] PCP - General Internal Medicine 11/28/21 documented as of this encounter
--- OUTSIDE RECORDS SUMMARY | 2024-12-30 15:05 | XMS_ITS | Clinical Summary ---
Author Organization [facility] Address [address] [id number] Care Team Providers Care Enrollment Management Coordinator Name Role Phone Antoinette Fox DO Primary Care Provider Allergies Active Allergy Reactions Criticality Noted Date [...] age to complete this topic Care Teams Enrollment Management Coordinator Relationship Specialty Start Date End Date Antoinette Fox DO PCP - General Family Medicine 12/11/17
--- OUTSIDE RECORDS SUMMARY | 2024-12-30 15:05 | XMS_ITS | Encounter Summary ---
Author Organization [facility] Address [address] [place] [address] Phone Care Team Providers Care Agricultural And Forestry Supervisor Name Role Phone Sen Shukla MD Primary Care Provider [phone] Encounter Details Date Type Department Care Team (Late Contact Info) Description 09/08/2024 Documentation Only [facility] [address] [place] [address] Carrie Michele [address] [place] [phone] Social History Tobacco Use Types Packs/Day [...] Visit [facility] [address] [place] [address] Maxwell Guerrero MD [address] [place] [address] [place] [address] documented as of this encounter Visit Diagnoses Not on filedocumented in this encounter Care Teams Agricultural And Forestry Supervisor Relationship Specialty Start Date End Date Sen Shukla MD [address] [place] [address] PCP - General Internal Medicine 11/28/21 documented as of this encounter
--- OUTSIDE RECORDS SUMMARY | 2024-12-30 15:05 | XMS_ITS | Encounter Summary ---
Author Organization [facility] Address [address] [place] [address] Phone Care Team Providers Care Code Inspector Name Role Phone Sen Shukla MD Primary Care Provider [phone] Reason for Visit * Reason Comments Med Refill Encounter Details Date Type Department Care Team (Late st Contact Info) Description 07/09/2023 Refill [facility] [address] [place] [address] Sascha Pressley MD [address] [place] [address] [place] [address] Social History Tobacco Use Types [...] Visit [facility] [address] [place] [address] Maxwell Guerrero MD [address] [place] [address] [place] [address] documented as of this encounter Visit Diagnoses Not on filedocumented in this encounter Care Teams Code Inspector Relationship Specialty Start Date End Date Sen Shukla MD [address] [place] [address] PCP - General Internal Medicine 11/28/21 documented as of this encounter
== END 2024-12-30 13:08 | disposition home or self-care (01) ==
LOC: HO.ENCR 12:26
PROVIDERS: PCP Internal Medicine; Visit Provider Nurse Practitioner Adult Health
DX: E11.49 Type 2 diabetes mellitus with other diabetic neurological complication (principal); Z79.4 Long term (current) use of insulin; E11.42 Type 2 diabetes mellitus with diabetic polyneuropathy
CPT/HCPCS: 95251; 99214; G2211

== ENCOUNTER → 2024-12-30 12:24 | Outpatient (BNVA) | payer MEDICARE, MEDICAID, SELFPAY | PROVIDERS: PCP Internal Medicine; Visit Provider Nurse Practitioner Adult Health | DX: E11.49 Type 2 diabetes mellitus with other diabetic neurological complication (principal); E11.42 Type 2 diabetes mellitus with diabetic polyneuropathy; Z79.4 Long term (current) use of insulin | CPT/HCPCS: 82947; 83036; 99212 ==

== ENCOUNTER 2025-04-02 09:22 | Outpatient (AMB) | payer MEDICARE, MEDICAID, SELFPAY ==
--- NOTE | 2025-04-02 09:25 | MHC.OFFVIS ---
Vital Signs 04/02/25 09:33 Height 5 ft 5 in Weight 139 lb 5.314 oz BMI 23.2 BP 115/74 Blood Pressure Location Lt brachial Position Sitting Pulse 67 Pulse Source Pulse Oximeter Pulse Oximetry (%) 98 Oxygen Delivery Method Room Air Intake Visit Reasons: follow up Intake Note: Patient presents for OA follow up. Allergies metformin (METFORMIN) Allergy (Severe, Verified 04/02/25 09:32) BLOATING,DIARRHEA, diarrhea Fluoxetine Allergy (Intermediate, Verified 04/02/25 09:32) Diarrhea saxagliptin (Onglyza) Allergy (Intermediate, Verified 04/02/25 09:32) Diarrhea sitagliptin (Janumet XR) Allergy (Intermediate, Verified 04/02/25 09:32) Diarrhea bee sting Allergy (Intermediate, Uncoded 09/16/24 12:42) Swelling Medication List - Last Reconciled 04/02/25 by Deana Shin MD allopurinol 300 mg PO DAILY baclofen 20 mg PO BEDTIME blood sugar diagnostic (FreeStyle Lite Strips) 3 TIMES A DAY calcium carbonate-vit D3-min 600 mg-10 mcg (400 unit) 1 tab PO BID diclofenac sodium 1% 4 grams topical QID dulaglutide (Trulicity) 3 mg (0.5 mL) subcut QWEEK empagliflozin (Jardiance) 25 mg PO DAILY gabapentin 400 mg PO BID hydrochlorothiazide 12.5 mg PO DAILY insulin degludec (Tresiba FlexTouch U-100 insulin) 26 units (0.26 mL) subcut DAILY 90 days levothyroxine 75 mcg PO DAILY 90 days lisinopril 2.5 mg PO DAILY 90 days oxcarbazepine 600 mg PO DAILY pen needle, diabetic (BD Mar 2nd Gen Pen Needle) once a day rosuvastatin 40 mg PO DAILY 90 days venlafaxine ER 150 mg PO DAILY zoledronic jgrn-uwaozykh-wxxuh 5 mg/100 mL (Reclast) 5mg intravenously; 12 months zolpidem ER 12.5 mg PO HPI Comments Details: Patient is a 69-year-old female with non crystal proven gout on allopurinol, well-controlled diabetes complicated by diabetic neuropathy, hypertension, hypothyroidism, hyperlipidemia, history of imbalance and recurrent falls, polyarticular osteoarthritis and osteoporosis complicated by multiple compression fractures of the lumbar spine who presents today for follow-up Interval History: Patient last seen 09/16/24 with me. At that time she had multiple complaints including neck pain, hand pain, shoulder pain, knee pain and hip pain. She also complained of imbalance and subsequent syncope which was being evaluated by Neurology. She also reported that since her last visit patient she fell and sustained a 2nd lumbar compression fracture Started on IV reclast and gabapentin increased Today, Notes improvement on the increase in gabapentin Recently moved Has not started infusion yet Rheumatologic History: Examined imaging has always been consistent with osteoarthritis. There was no concern for inflammatory arthritis. Osteoporosis with multiple lumbar fractures. Current Rheumatology Medication(s): Gabapentin 400mg bid IV reclast 5mg yearly (hasn't started) Vit D PFSH Medical History Vitamin D deficiency Osteoarthritis Sacroiliitis Spondylosis of lumbar spine Depression, major, recurrent, moderate Renal calculi Overweight (BMI 25.0-29.9) Dyslipidemia Diabetic nephropathy associated with type 2 diabetes mellitus Diabetic neuropathy associated with type 2 diabetes mellitus penitentiary (current) use of insulin Diabetes type 2, uncontrolled Diabetes mellitus Hypothyroidism Surgical History Hx of section Family History Father Cancer Mother Cancer Paternal Grandmother Diabetes Brother Mental health disorder Social History Household Members: None Housing: Apartment Alcohol intake: current Alcohol intake frequency: does not drink Patient Tobacco Use Status: Former Tobacco user Cigarettes Per Day: 20 Years Smoked: 20 e-Cigarette/Vaping Use: Never Used Substance Use Type: Former Substance User and Marijuana service: No Current occupational status: retired Cognitive needs: No Hearing needs: No Vision needs: Yes Review of Systems Const Details: Review of Systems Constitutional: Denies fever, chills, weight loss ENT: Denies vision changes, eye pain or eye redness, dental caries, dry mouth GI: Denies nausea, vomiting, diarrhea, abdominal pain, change in BM Pulm: Denies SOB, ROSA, hemoptysis, wheezing Cards: Denies chest pain, palpitations Skin: Denies Raynaud's, rash, nail changes, photosensitivity, MEDICAL STAFF SPECIALIST: Denies headaches, weakness, paresthesias, recurrent falls MSK: as per HPI All other systems reviewed and are unremarkable except noted above Physical Exam Vital Signs: Last Vital Signs Pulse 67 04/02/25 09:33 BP 115/74 04/02/25 09:33 Pulse Ox 98 04/02/25 09:33 Oxygen Delivery Method Room Air 04/02/25 09:33 BMI result Body Mass Index 23.2 Vital signs Physical Examination CONSTITUITIONAL Patient alert and cooperative. Well appearing and in no apparent painful distress HEENT Conjunctiva and sclera clear. ?Pupils equal round and reactive to light. ?No lymphadenopathy. ? CHEST/RESPIRATORY SYSTEM Normal respiratory effort and able to speak in complete sentences. ?Clear to auscultation bilaterally. ?No crackles, rales, rhonchi, wheezes heard. CARDIAC SYSTEM Regular rate and rhythm. ?S1 and S2 heard no murmurs. ?Radial pulses intact bilaterally MSK Hands: ?Good facility supervisor strength bilaterally. Heberden's and Sea's nodes noted throughout bilateral hands. No synovitis noted to the MCPs, PIPs or DIPs. ?No tenderness to palpation of these joints. Wrists: ?Full range of motion at the wrists without pain. ?No tenderness to palpation or synovitis noted to the wrists. Elbows: Full range of motion without pain. No tenderness, weakness, swelling, increased warmth or erythema. Shoulders: Full range of motion without pain. No tenderness, weakness, swelling, increased warmth or erythema. Knees: ?Full range of motion. ?No tenderness, swelling, increased warmth or erythema. Crepitations bilaterally Ankles: Full range of motion. ?No tenderness, swelling, increased warmth or erythema.? Feet: ?Negative squeeze test. ?No tenderness to palpation or swelling of the MTPs. Tender points:??No tenderness to palpation of the neck, shoulders, chest, elbows, hips, buttocks or knees. SKIN Skin intact without rashes. Results Reviewed Results Reviewed: DEXA 10/19/23 FINDINGS: LEFT FEMUR, NECK: BMD 0.805 g/cm2, Z-score -0.1, T-score -1.7, osteopenia. LEFT FEMUR, TOTAL: BMD 0.769 g/cm2, Z-score -0.6, T-score -1.9, osteopenia. AP SPINE L1-L3 (excluding L4): The data of L1-L4 has been changed to exclude the L4 vertebral body, because degenerative sclerosis at this level may cause overestimation of lumbar spine density. BMD 0.959 g/cm2, Z-score -0.2, T-score -1.8, osteopenia. Assessment & Plan Assessment & Plan (1) Osteoporosis: Code(s): M81.0 - Age-related osteoporosis without current pathological fracture Category: Medical Qualifiers: Osteoporosis type: age-related Presence of current pathological fracture: with current pathological fracture Encounter type: sequela Qualified Code(s): M80.00XS - Age-related osteoporosis with current pathological fracture, unspecified site, sequela Plan: #Osteoporosis complicated by lumbar compression fractures x 2 Patient is a 69-year-old female with osteoporosis as evidenced by DEXA showing osteopenia and recurrent lumbar compression fractures. Started on Reclast but patient has not started the infusion. We will reach out to infusion center. Plan - IV Zolendronic acid 5mg yearly for 2 years then recheck DEXA - Ca-Vit D supplement - Check CMP, Vit D and PTH (2) Osteoarthritis: Code(s): M19.90 - Unspecified osteoarthritis, unspecified site Category: Medical Qualifiers: Osteoarthritis location: multiple joints Osteoarthritis type: primary Qualified Code(s): M15.0 - Primary generalized (osteo)arthritis Plan: #Polyarticular OA Polyarticular OA without any evidence of synovitis today on examination Plan - Topical diclofenac 1% tid up to 4 times a day on hands and knees - Gabapentin to 400mg bid Plan I spent 30 minutes reviewing the record and labs, seeing the patient, discussing the treatment plan and documenting in the medical record ? Orders: Orders Comprehensive Met. Panel Today M80.00XS - Age-related osteoporosis with current pathological fracture, unspecified site, sequela Vitamin D 25-OH Total Today M80.00XS - Age-related osteoporosis with current pathological fracture, unspecified site, sequela Medications: Refilled gabapentin 400 mg PO BID 180 caps 1RF E11.42 - Type 2 diabetes mellitus with diabetic polyneuropathy, M19.90 - Unspecified osteoarthritis, unspecified site Coding Level of Care Code Est Pt Level 4 (90685) Complex EM visit Add On G2211 Diagnoses Age-related osteoporosis with current pathological fracture, sequela M80.00XS Osteoporosis type: age-related Presence of current pathological fracture: with current pathological fracture Encounter type: sequela Primary osteoarthritis involving multiple joints M15.0 Osteoarthritis location: multiple joints Osteoarthritis type: primary
[2025-04-02 09:33] VITALS: BP 115/74; PULSE 67; O2SAT 98; BMI 23.2
== END 2025-04-02 09:53 | disposition home or self-care (01) ==
PROVIDERS: PCP Internal Medicine; Visit Provider Student in an Organized Health Care Education/Training Program
DX: M80.00XS Age-related osteoporosis with current pathological fracture, unspecified site, sequela (principal); M15.0 Primary generalized (osteo)arthritis
CPT/HCPCS: 99214; G2211

== ENCOUNTER → 2025-04-02 09:22 | Outpatient (BNVA) | payer MEDICARE, MEDICAID, SELFPAY | PROVIDERS: PCP Internal Medicine; Visit Provider Student in an Organized Health Care Education/Training Program | DX: M80.00XD Age-related osteoporosis with current pathological fracture, unspecified site, subsequent encounter for fracture with routine healing (principal); M15.0 Primary generalized (osteo)arthritis | CPT/HCPCS: 99212 ==

== ENCOUNTER 2025-04-02 10:06 | Outpatient (REF) | payer MEDICARE, MEDICAID, SELFPAY ==
[2025-04-02 13:38] LABS: Alanine Aminotransferase 35 U/L (0-31); Albumin Level 4.5 g/dL (3.5-5.0); Alkaline Phosphatase 80 U/L (39-117); Anion Gap 11 (12-20); Aspartate Amino Transferase 27 U/L (5-31); Bilirubin Total 0.3 mg/dL (0.0-1.0); Blood Urea Nitrogen 11 mg/dL (9-16); Calcium 9.4 mg/dL (8.4-10.2); Carbon Dioxide 30 mmol/L (22-29); Chloride 102 mmol/L (96-108); Cholesterol 156 mg/dL (<200); Estimated Glomerular Filt Rate > 60; Glucose Fasting 105 mg/dL (60-99); Glucose Random 106 mg/dL (60-115); HDL Cholesterol 67 mg/dL (>40); LDL Cholesterol Calculated 79 mg/dL (<100); Potassium 3.4 mmol/L (3.3-5.1); Sodium 140 mmol/L (135-145); Triglycerides 53 mg/dL (<150)
[2025-04-02 13:54] LABS: Vitamin D 25-OH Total 47.9 ng/mL (>30)
== END 2025-04-02 10:07 | disposition home or self-care (01) ==
LOC: HO.10HDL 10:06
PROVIDERS: Visit Provider Student in an Organized Health Care Education/Training Program
DX: M80.00XS Age-related osteoporosis with current pathological fracture, unspecified site, sequela (principal); E78.9 Disorder of lipoprotein metabolism, unspecified; E10.42 Type 1 diabetes mellitus with diabetic polyneuropathy; R29.6 Repeated falls; Z99.89 Dependence on other enabling machines and devices
CPT/HCPCS: 36415; 80053; 80061; 82306

== ENCOUNTER 2025-04-16 13:59 | Outpatient (RCR) | payer MEDICARE, MEDICAID, SELFPAY ==
[2025-04-16 14:01] VITALS: BP 114/63; PULSE 70; RESP 16; TEMP 36.6; O2SAT 100
== END 2025-04-16 14:29 | disposition home or self-care (01) ==
LOC: HO.INF 13:59
PROVIDERS: Visit Provider Student in an Organized Health Care Education/Training Program
DX: M81.0 Age-related osteoporosis without current pathological fracture (principal); E78.9 Disorder of lipoprotein metabolism, unspecified
CPT/HCPCS: 96374; J3489

== ENCOUNTER 2025-07-31 14:05 | Outpatient (AMB) | payer MEDICARE, MEDICAID, SELFPAY ==
[2025-07-31 14:07] VITALS: BP 104/56; PULSE 80; O2SAT 95; BMI 23.6
--- NOTE | 2025-07-31 14:07 | A.OFFVIS_ITS ---
Vital Signs 07/31/25 14:07 Height 5 ft 5 in Weight 141 lb 15.643 oz BMI 23.6 BP 104/56 L Blood Pressure Location Rt brachial Position Sitting Pulse 80 Pulse Source Pulse Oximeter Pulse Oximetry (%) 95 Oxygen Delivery Method Room Air Intake Visit Reasons: T2DM Intake Note: Patient present today to follow up on Type 2 Diabetes Mellitus. Last Diabetic Eye exam: Last exam was 2 years ago Last Podiatry Visit: Does not see a Middle School Teacher Random Glucose: 197 mg/dl Hgb A1C: 6.7% Land Sales Agent Required: No Accompanied by: Self / Same As Patient Allergies metformin (METFORMIN) Allergy (Severe, Verified 07/31/25 14:16) BLOATING,DIARRHEA, diarrhea Fluoxetine Allergy (Intermediate, Verified 07/31/25 14:16) Diarrhea saxagliptin (Onglyza) Allergy (Intermediate, Verified 07/31/25 14:16) Diarrhea sitagliptin (Janumet XR) Allergy (Intermediate, Verified 07/31/25 14:16) Diarrhea bee sting Allergy (Intermediate, Uncoded 07/31/25 14:16) Swelling Medication List - Last Reconciled 07/31/25 by BARBY North allopurinol 300 mg PO DAILY baclofen 20 mg PO BEDTIME blood sugar diagnostic (FreeStyle Lite Strips) 3 TIMES A DAY calcium carbonate-vit D3-min 600 mg-10 mcg (400 unit) 1 tab PO BID diclofenac sodium 1% 4 grams topical QID dulaglutide (Trulicity) 3 mg (0.5 mL) subcut QWEEK empagliflozin (Jardiance) 25 mg PO DAILY gabapentin 400 mg PO BID hydrochlorothiazide 12.5 mg PO DAILY insulin degludec (Tresiba FlexTouch U-100 insulin) 26 units (0.26 mL) subcut DAILY 90 days levothyroxine 75 mcg PO DAILY 30 days lisinopril 2.5 mg PO DAILY 90 days oxcarbazepine 600 mg PO DAILY pen needle, diabetic (BD Mar 2nd Gen Pen Needle) once a day rosuvastatin 40 mg PO DAILY 90 days venlafaxine ER 150 mg PO DAILY zoledronic qpgm-fvboelhv-gwzih 5 mg/100 mL (Reclast) 5mg intravenously; 12 months zolpidem ER 12.5 mg PO HPI Comments Details: This is a 70-year-old female with a past medical history of type 2 diabetes presenting for diabetic management. This is my 1st visit with the patient. Hemoglobin A1c 6.7%. Current medication: Tresiba 26 units, Trulicity 3 mg weekly, Jardiance 25 mg daily Hypertension is treated with hydrochlorothiazide and lisinopril. Hyperlipidemia is treated with rosuvastatin. Reviewed CGM data: Vinh GA 6.4% Very high 0% High 12% Target range 88% 0% hypoglycemia My interpretation is the majority of her blood sugars are within target range with occasional hyperglycemia nocturnally and mid day. She denies episodes of hypoglycemia. She is overdue for an eye exam. She has foot exams once a month with a nurse from her insurance. She does not follow a diabetic diet strictly. She likes sugar. Complications: Retinopathy and neuropathy ROS: Constitutional: No unexplained weight loss, fever, chills, fatigue or night sweats. Eyes: No vision changes, blurry vision, double vision Gastrointestinal: No anorexia, nausea, vomiting or diarrhea. No abdominal pain Neurologic: No headache, dizziness, syncope Skin: No rash or wounds Endocrine: No cold or heat intolerance. No polyuria or polydipsia. Physical exam: Constitutional: Alert, in no distress. Neck: Supple, Full range of motion. No lymphadenopathy. No palpable thyroid masses. Respiratory: Clear to auscultation. Cardiovascular: S1 S2 regular. No murmurs. Extremities: Warm and well perfused. No clubbing, cyanosis or edema. Intact peripheral pulses bilaterally. No foot ulcerations or wounds. 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 Diabetes type 2, uncontrolled Diabetes mellitus Hypothyroidism Surgical History Hx of section Family History Father Cancer Mother Cancer Paternal Grandmother Diabetes Brother Mental health disorder Social History Household Members: None Housing: Apartment Alcohol intake: current Alcohol intake frequency: does not drink Patient Tobacco Use Status: Former Tobacco user Cigarettes Per Day: 20 Years Smoked: 20 e-Cigarette/Vaping Use: Never Used Substance Use Type: Former Substance User and Marijuana service: No Current occupational status: retired Cognitive needs: No Hearing needs: No Vision needs: Yes Physical Exam Vital Signs: Last Vital Signs Pulse 80 07/31/25 14:07 BP 104/56 L 07/31/25 14:07 Pulse Ox 95 07/31/25 14:07 Oxygen Delivery Method Room Air 07/31/25 14:07 BMI result Body Mass Index 23.6 Office Procedures Glucose Monitoring Details Details: See HPI 53129 - Glucose monitoring, continuous-physician I&R Procedure code (CPT) selection complete Results AMB Hemoglobin A1c AMB Hemoglobin A1c 6.7 % Last Edit by CARMENZA Peterson on 07/31/25 14:28 Results Reviewed Results Reviewed: Laboratory Last Values Glucose (Clinic) 197 mg/dL (60-115) H 07/31/25 14:19 Laboratory Tests 10/13/19 11/26/23 04/02/25 14:33 11:00 10:14 Creatinine 0.59 Estimated GFR > 60 Hgb A1c (Clinic) C-Peptide 1.91 AST 27 ALT 35 H Triglycerides 53 Cholesterol 156 LDL Cholesterol, Calc 79 HDL Cholesterol 67 Urine Creatinine 48.52 Urine Microalbumin 11.0 Microalb/Creat Ratio 22.6 07/31/25 14:22 Creatinine Estimated GFR Hgb A1c (Clinic) 6.7 H C-Peptide AST ALT Triglycerides Cholesterol LDL Cholesterol, Calc HDL Cholesterol Urine Creatinine Urine Microalbumin Microalb/Creat Ratio Assessment & Plan Assessment & Plan (1) Controlled type 2 diabetes mellitus: Code(s): E11.9 - Type 2 diabetes mellitus without complications Category: Medical Qualifiers: Diabetes mellitus complication detail: with polyneuropathy Diabetes mellitus complication status: with neurologic complications Diabetes mellitus intermodal dispatcher insulin use: with intermodal dispatcher use Qualified Code(s): E11.42 - Type 2 diabetes mellitus with diabetic polyneuropathy; Z79.4 - 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 (2) Dyslipidemia: Code(s): E78.5 - Hyperlipidemia, unspecified Category: Medical Plan In summary this is a 70-year-old female with controlled type 2 diabetes with complications. Current medication: Tresiba 26 units, Trulicity 3 mg weekly, Jardiance 25 mg daily. If she develops low blood sugars she can reduce Tresiba in 2 unit increments daily until this resolves. She has not had recent episodes. We reviewed Referred for diabetic eye exam. She will have lab work done prior to her next appointment. 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 Continue statin for hyperlipidemia and cardiovascular risk reduction. Continue lisinopril for renal protection. Follow up in 3 months. Orders: Orders Microalbumin, Random (w Creat) 3 Months E11.42 - Type 2 diabetes mellitus with diabetic polyneuropathy, E11.9 - Type 2 diabetes mellitus without complications Lipid Panel 3 Months E11.42 - Type 2 diabetes mellitus with diabetic polyneuropathy, E78.5 - Hyperlipidemia, unspecified Alanine Aminotransferase 3 Months E11.42 - Type 2 diabetes mellitus with diabetic polyneuropathy Aspartate Amino Transferase 3 Months E11.42 - Type 2 diabetes mellitus with diabetic polyneuropathy Hemoglobin A1c 3 Months E11.42 - Type 2 diabetes mellitus with diabetic polyneuropathy, R73.9 - Hyperglycemia, unspecified AMB Glucose Monitoring Today E11.9 - Type 2 diabetes mellitus without complications AMB Hemoglobin A1c Today E11.65 - Type 2 diabetes mellitus with hyperglycemia, Z13.9 - Encounter for screening, unspecified Creatinine 3 Months E11.42 - Type 2 diabetes mellitus with diabetic polyneuropathy, E11.9 - Type 2 diabetes mellitus without complications Referrals Ophthalmology Referral E11.65 - Type 2 diabetes mellitus with hyperglycemia Coding Level of Care Code Est Pt Level 4 (31643) Diagnoses Controlled type 2 diabetes mellitus with diabetic polyneuropathy, with long-term current use of insulin E11.42; Z79.4 Diabetes mellitus complication detail: with polyneuropathy Diabetes mellitus complication status: with neurologic complications Diabetes mellitus senior care insulin use: with senior care use Dyslipidemia E78.5 CPT Codes Details - CPT: 41127 - Glucose monitoring, continuous-physician I&R ([id number])
[2025-07-31 14:23] LABS: Glucose, Whole Blood 197 mg/dL (60-115)
--- OUTSIDE RECORDS SUMMARY | 2025-07-31 16:06 | XMS_ITS | Clinical Summary ---
Author Organization [facility] Address [address] [id number] Care Team Providers Care Computer Education Professor Name Role Phone Antoinette Fox DO Primary Care Provider Allergies Active Allergy Reactions Criticality Noted Date Comments Bee Sting 11/14/2017 Buspirone 12/11/2017 Fluoxetine 11/14/2017 Glipizide 12/11/2017 Sitaglip Phos-Metformin Hcl Er 12/11 Metformin Diarrhea 11/14/2017 Saxagliptin 11/14/2017 Tramadol 12/11/2017 [...] 88 07/02/2018 8:08 AM EDT Temperature 36.8 C (98.3 F) 07/02/2018 8:08 AM EDT Respiratory Rate 14 12/11/2017 12:58 PM EST [...] PCV20) 07/22/2020 08/03/2016, 07/22/2015 Influenza Vaccine (#1) 2025 06/06/2018 DTap / Tdap / Td (2 - Td or Tdap) 09/18/2027 09/18/2017 Colon Cancer Screening (Colonoscopy) 04/01/2028 04/01/2018, 03/14/2018 (Declined), 07/13/2006 Hepatitis B Vaccines Aged Out No long er eligible based on patient's age to complete this topic RSV Ped < 20 months Aged Out No longe r eligible based on patient's age to complete this topic Care Teams Computer Education Professor Relationship Specialty Start Date End Date Antoinette Fox DO PCP - General Family Medicine 12/11/17
--- OUTSIDE RECORDS SUMMARY | 2025-07-31 16:06 | XMS_ITS | Encounter Summary ---
Author Organization [facility] Address [address] [place] [address] Phone Care Team Providers Care Audio Visual Technician Name Role Phone Sen Shukla MD Primary Care Provider [phone] Encounter Details Date Type Department Care Team (Late Contact Info) Description 11/29/2021 Documentation Only [facility] [address] [place] [address] Carrie Michele [address] [place] [address] Social History Tobacco Use Types Packs/Day [...] Care Team (Late st Contact Info) Description 09/29/2025 3:10 PM EST Office Visit [facility] [address] [place] [address] Maxwell Guerrero MD [address] [place] [address] [place] [address] documented as of this encounter Visit Diagnoses Not on filedocumented in this encounter Care Teams Audio Visual Technician Relationship Specialty Start Date End Date Sen Shukla MD [address] [place], [place] [id number] PCP - General Internal Medicine 11/28/21 documented as of this encounter
--- OUTSIDE RECORDS SUMMARY | 2025-07-31 16:06 | XMS_ITS | Encounter Summary ---
Author Organization [facility] Address [address] [place] [address] Phone Care Team Providers Care National Park Tour Guide Name Role Phone Sen Shukla MD Primary Care Provider [phone] Encounter Details Date Type Department Care Team (Late st Contact Info) Description 11/28/2021 Documentation Only [facility] [address] [place] [address] Carrie Michele [address] [place] [address] Social History Tobacco Use Types [...] Visit [facility] [address] [place] [address] Maxwell Guerrero MD [address] [place] [address] [place] [address] documented as of this encounter Visit Diagnoses Not on filedocumented in this encounter Care Teams National Park Tour Guide Relationship Specialty Start Date End Date Sen Shukla MD [address] [place], [place] [id number] PCP - General Internal Medicine 11/28/21 documented as of this encounter
--- OUTSIDE RECORDS SUMMARY | 2025-07-31 16:06 | XMS_ITS | Clinical Summary ---
Author Organization [facility], Address [address] [place] [address] [place] [address] Phone Care Team Providers Care Delivery Rep Name Role Phone Sen Shukla MD Primary Care Provider [phone] Allergies Active Allergy Reactions Criticality Noted Date Comments Bee Pollen 11/14/2017 Bee Venom 11/14/2017 Buspirone 12/11/2017 Fluconazole Other (see comments) 10/29/2020 Fluoxetine 11/14/2017 Glipizide 12/11/2017 Lactose Other (see comments) 10/29/2020 Metformin Diarrhea,Other (see comments) 11/14/2017 Saxagliptin 11/14/2017 Sitaglip Phos-Metformin Hcl Er 12/11/2017 Tramadol 12/11/2017 Medications atorvastatin (LIPITOR) 40 MG tablet 9 Active baclofen (LIORESAL) 20 MG tablet 9 Active TRULICITY 1.5 MG/0.5ML solution pen-injector 9 Active Empagliflozin (JARDIANCE) 25 MG tablet Take 1 tablet by mouth 1 (one) time each day 7 Active gabapentin (NEURONTIN) 300 MG capsule Take 2 capsules by mouth 3 (three) times a day 8 Active FREESTYLE LITE test strip TEST 3 TIMES A DAY DIRECTED 9 Active TRESIBA FLEXTOUCH 100 UNIT/ML injection 9 Active insulin glargine (LANTUS SOLOSTAR) 100 UNIT/ML injection INJECT 50 UNITS DAILY SUBCUTANEOUSLY 30 DAYS 8 Active lisinopril (PRINIVIL,ZEST RIL) 2.5 MG tablet 9 Active OXcarbazepine (TRILEPTAL) 600 MG tablet Comments: Patient Notes: Take a HALF tablet every morning and ONE FULL tablet every evening Duration: 1 Active venlafaxine XR (EFFEXOR-XR) 37.5 MG 24 hr capsule Take 1 capsule by mouth every morning 8 Active zolpidem CR (AMBIEN CR) 12.5 MG CR tablet Take 1 tablet by mouth 1 (one) time each day Active levothyroxine (SYNTHROID, LEVOTHROID) 88 MCG tablet Take 1 tablet (88 mcg total) by mouth 1 (one) time each day 90 tablet 3 Active hydroCHLOROthi azide 12.5 MG tablet TAKE 1 TABLET BY MOUTH 1 TIME EACH DAY. 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 Insomnia 09/22/2019 Low back pain 09/22/2019 Metabolic dysfunction-associated steatotic liver disease 09/22/2019 Osteopenia 09/22/2019 Overview (09/22/2019): DEXA: 11/2014 [...] Encounters Date Type Department Care Team Description 06/19/2025 11:10 AM EDT Office Visit [facility], [address] [place] [id number] Maxwell Guerrero MD Stage 3a chronic kidney disease (HCC) (Primary Dx) from Last 3 Months Immunizations Immunization Administration Dates Next Due Pneumococcal Conjugate 13-Valent [...] Visit [facility], [address] [place] [phone] Maxwell Guerrero MD [address] [place] [address] [place] [id number] Health Maintenance Due Date Last Done Comments Breast Cancer Screening 1955 Colorectal Cancer Screening: Annual FOBT 2004 Colorectal Cancer Screening: Colonoscopy 2004 Colorectal Cancer Screening: Sigmoidoscopy 2004 Diabetes: Hemoglobin A1C 09/22/2019 07/30/2025 Diabetes: Ophthalmology Exam 09/22/2019 Diabetes: Pedal Pulse Checked 09/22/2019 Diabetes: Sensory Foot Exam 09/22/2019 Diabetes: Visual Foot Exam 09/22/2019 Pneumococcal Vaccine: 50+ Years (3 of 3 - PCV20 or PCV21) 07/22/2020 08/03/2016, 07/22/2015 Influenza Vaccine (#1) 2025 Pneumococcal Vaccine: Peds ( 0 to 5 Years) and At-Risk Patients (6 to 49 Years) Discontinued 08/03/2016, 07/22/2015 Hepatitis B Vaccine Aged Out No longe r eligible based on patient's age to complete this topic Procedures Procedure Name Priority Date/Time Associated Diagnosis Comments HEMOGLOBIN A1C Routine 07/30/2025 1:45 PM EDT URINE ALBUMIN / CREATININE RATIO Routine 07/30/2025 1:45 PM EDT BASIC METABOLIC PANEL Routine 07/30/2025 1:45 PM EDT CBC Routine 07/30/2025 1:45 PM EDT URINALYSIS, COMPLETE Routine 07/30/2025 1:45 PM EDT MICROSCOPIC EXAMINATION - DO NOT USE Routine 07/30/2025 1:45 PM EDT from Last 3 Months Results * (ABNORMAL) Urinalysis, Complete w/reflex to Culture (07/30/2025 1:45 PM EDT) Specific [place], Urine 1.025 1.005 - 1.030 [facility] pH Urine 6.0 5.0 - 7.5 [facility] Color, Urine Yellow Yellow [facility] Appearance Urine Clear Clear [facility] WBC Esterase Urine Negative Negative [facility] Protein, Ur Negative Negative/Tra ce [facility] Glucose, Ur 3+(A) Negative [facility] [phone] Ketones, Urine Negative Negative [facility] Blood Urine Negative Negative [facility] Bilirubin Urine Negative Negative [facility] Urobilinogen Urine 0.2 0.2 - 1.0 mg/dL [facility] Nitrite, Urine Negative Negative [facility] [phone] Microscopic Examination Comment [facility] Comment:Microscopic follows if indicated. Other Microsc. Observations See below: [facility] Comment:Microscopic was lissy cated and was performed. URINALYSIS REFLEX Comment [facility] Comment:This specimen will n ot reflex to a Urine Culture. 07/30/2025 1:45 PM EDT 07/30/2025 us Maxwell Guerrero MD LAB URINE ORDERABLES Final Re sult [facility] [address] [place] [address] * Microscopic Examination (07/30/2025 1:45 PM EDT) WBC, Urine None seen 0 - 5 /hpf [facility] RBC, Urine None seen 0 - 2 /hpf [facility] Squamous Epithelial, Urine None seen 0 - 10 /hpf [facility] Casts None seen None seen /lpf [facility] Bacteria, Urine None seen None seen/Few [facility] 07/30/2025 1:45 PM EDT 07/30/2025 Maxwell Guerrero MD LAB MICROBIOLOGY - GENERAL OR DERABLES Final Result Performing Organization Address City/[facility]/ZIP Co de Phone Number [facility] [address] [place] [address] * CBC (07/30/2025 1:45 PM EDT) WBC 4.2 3.4 - 10.8 x10E3/uL [facility] RBC 4.63 3.77 - 5.28 x10E6/uL [facility] Hemoglobin 13.8 11.1 - 15.9 g/dL [facility] Hematocrit 42.6 34.0 - 46.6 % [facility] MCV 92 79 - 97 fL [facility] MCH 29.8 26.6 - 33.0 pg [facility] MCHC 32.4 31.5 - 35.7 g/dL [facility] RDW 12.3 11.7 - 15.4 % [facility] Platelets 208 150 - 450 x10E3/uL [facility] 07/30/2025 1:45 PM EDT 07/30/2025 Maxwell Guerrero MD LAB BLOOD ORDERABLES Final Re sult [facility] [address] [place] [address] * (ABNORMAL) Hemoglobin A1c (07/30/2025 1:45 PM EDT) Hemoglobin A1C 6.6(H) 4.8 - 5.6 % [facility] Comment: Prediabetes: 5.7 - 6.4 Diabetes: >6.4 Glycemic control for adults with diabetes: <7.0 07/30/2025 1:45 PM EDT 07/30/2025 Maxwell Guerrero MD LAB BLOOD ORDERABLES Final Re sult Performing Organization Address City/[facility]/ZIP Co de Phone Number [facility] [address] [place] [address] * (ABNORMAL) Basic Metabolic Panel (07/30/2025 1:45 PM EDT) Pathologist [facility] Glucose 202(H) 70 - 99 mg/dL [facility] BUN 17 8 - 27 mg/dL [facility] Creatinine 0.76 0.57 - 1.00 mg/dL [facility] eGFR CKD-EPI CR 2020 84 >59 mL/min/1.7 3 [facility] BUN/Creatinine Ratio 22 12 - 28 [facility] Sodium 140 134 - 144 mmol/L [facility] Potassium 3.9 3.5 - 5.2 mmol/L [facility] Chloride 100 96 - 106 mmol/L [facility] Bicarbonate (CO2) 27 20 - 29 mmol/L [facility] Calcium 9.3 8.7 - 10.3 mg/dL [facility] 07/30/2025 1:45 PM EDT 07/30/2025 Maxwell Guerrero MD LAB BLOOD ORDERABLES Final Re sult [facility] [address] [place] [address] from Last 3 Months Insurance * Guarantor: [employer] Account Type Relation to Patient Date of Phone Billing Address Personal/Family Self 1955 [address] [place] [address] Medicaid [place] Medicare Care Teams Delivery Rep Relationship Specialty Start Date End Date Sen Shukla MD [facility] [place], [place] [phone] PCP - General Internal Medicine 11/28/21
--- OUTSIDE RECORDS SUMMARY | 2025-07-31 16:06 | XMS_ITS | Encounter Summary ---
Author Organization [facility] Address [address] [place] [address] Phone Care Team Providers Care Diving Fisher Name Role Phone Sen Shukla MD Primary Care Provider [phone] Encounter Details Date Type Department Care Team (Late Contact Info) Description 09/08/2024 Documentation Only [facility] [address] [place] [address] Carrie Michele [address] [place] [address] Social History Tobacco Use Types [...] Visit [facility] [address] [place] [address] Maxwell Guerrero MD [address] [place] [address] [place] [address] documented as of this encounter Visit Diagnoses Not on filedocumented in this encounter Care Teams Diving Fisher Relationship Specialty Start Date End Date Sen Shukla MD [address] [place], [place] [phone] PCP - General Internal Medicine 11/28/21 documented as of this encounter
--- OUTSIDE RECORDS SUMMARY | 2025-07-31 16:07 | XMS_ITS | Clinical Summary ---
Author Organization [facility] Address [address] [place] [phone] Phone Care Team Providers Care Fur Nailer Name Role Phone System, Provider Not In PhD Primary Care Provide r Unavailable Allergies Active Allergy Reactions Criticality Noted Date Comments Bee Pollen 11/14/2017 Buspirone 12/11/2017 Fluoxetine 11/14/2017 Glipizide 12/11/2017 Metformin Diarrhea 11/14/2017 Saxagliptin 11/14/2017 Tramadol 12/11/2017 Medications allopurinol (ZYLOPRIM) 300 MG tablet TAKE 1 TABLET BY MOUTH EVERY DAY 8 Active gabapentin (NEURONTIN) 300 MG capsule Take 300 mg by mouth. 8 Active atorvastatin (LIPITOR) 80 MG tablet TAKE 1 TABLET BY MOUTH EVERY DAY 8 Active baclofen (LIORESAL) 20 MG tablet TAKE 1 TABLET BY MOUTH 3 TIMES A DAY WITH FOOD OR MILK 8 Active hydroCHLOROthiazi de (MICROZIDE) 12.5 mg capsule TAKE ONE CAPSULE BY MOUTH EVERY DAY 8 Active insulin degludec (TRESIBA FLEXTOUCH U-100) 100 unit/mL (3 mL) InPn INJECT 50 UNITS ONCE DAILY AT BEDTIME 8 Active levothyroxine (SYNTHROID, LEVOTHROID) 88 MCG tablet Take by mouth. 8 Active lisinopril (PRINIVIL,ZESTRIL ) 2.5 MG tablet TAKE 1 TABLET BY MOUTH EVERY DAY 8 Active MULTIVITAMIN ORAL Take by mouth. Active OXcarbazepine (TRILEPTAL) 300 MG tablet TAKE 1 TABLET BY MOUTH IN THE MORNING & 2 AT BEDTIME 8 Active dulaglutide (TRULICITY) 1.5 mg/0.5 mL subcutaneous injection Inject 1.5 mg under the skin. 8 Active Active Problems No known active problems Family History Medical History Relation Comments Diabetes Paternal Grandmother Relation Status Comments Paternal Grandmother Social History Tobacco Use Types Packs/Day Years Used Date Smoking Tobacco: Former Smokeless Tobacco: Never Alcohol Use Standard Drinks/Week Comments No 0 (1 standard drink = 0.6 oz pur e alcohol) Education Answer Date Recorded Are you interested in more education? Not on danyell e 02/02/2023 Are you concerned about learning? Not on file 02/02/2023 No 02/02/2023 No 02/02/2023 Digital Access Answer Date Recorded No 03/03/2023 No 03/03/2023 No 03/03/2023 Reliable internet access at home? Not on file 03/03/2023 Device with a working camera? Not on file Comments Unknown Sex and Gender Information Value Date Recorded Sex Assigned at Not on file Legal Sex Female 9:22 AM EDT Gender Identity Not on file Sexual Orientation Not on file Plan of Treatment Health Maintenance Due Date Last Done Comments CREATININE LEVEL 1955 LIPID PANEL 1955 POTASSIUM LEVEL 1955 TSH LEVEL 1955 DEPRESSION SCREENING 1967 SMOKING Hx and SMOKELESS TOBACCO SCREENING 1968 HEPATITIS C SCREENING 1973 MAMMOGRAM 1995 COLOGUARD 2000 COLONOSCOPY 2000 COLORECTAL CANCER SCREENING 2000 FIT TEST 2000 FOBT 2000 SIGMOIDOSCOPY 2000 VIRTUAL COLONOSCOPY 2000 ZOSTER VACCINES (2 of 3) 02/09/2017 12/15/2016 OSTEOPOROSIS SCREENING INITI AL (ONE-TIME) 2020 PNEUMOCOCCAL VACCINES (50+ years) (3 of 3 - PCV20 or PCV21) 08/03/2021 08/03/2016, 07/22/2015 INFLUENZA VACCINE (#1) 2025 9, 06/19/2017 COVID-19 VACCINE (2 - 2024-2 6 season) 2025 12/30/2020 Adult Td,Tdap Booster 09/18/2027 09/18/2017 RSV VACCINE (1 - 1-dose 75+ series) 2030 HEPATITIS A VACCINES Aged Out No long er eligible based on patient's age to complete this topic HIB VACCINES Aged Out No longer eligi ble based on patient's age to complete this topic MENINGOCOCCAL VACCINES (ACWY) Aged Out No longer eligible based on patient's age to complete this topic MENINGOCOCCAL VACCINES (B) Aged Out N o longer eligible based on patient's age to complete this topic Medical Devices Not on file Insurance MEDICARE PART A & B [facility] MEDICARE PART A & [place] [facility] [place] & B HEALTH MEDICARE PART A & B HEALTH Care Teams Fur Nailer Relationship Specialty Start Date End Date System, Provider Not In, PhD [address] [address] PCP - General 01/01/18 Additional Source Comments The information contained in this document represents components of the legal health record. It is not the complete legal health record.[facility]
--- OUTSIDE RECORDS SUMMARY | 2025-07-31 16:08 | XMS_ITS | Encounter Summary ---
Author Organization [facility] Address [address] [place] [address] Phone Care Team Providers Care Real Estate Marketing Coordinator Name Role Phone Sen Shukla MD Primary Care Provider [phone] Reason for Visit * Reason Comments Med Refill Encounter Details Date Type Department Care Team (Late st Contact Info) Description 07/09/2023 Refill [facility] [address] [place] [address] Sascha Pressley MD Social History Tobacco Use Types Packs/Day Years [...] Visit [facility] [address] [place] [address] Maxwell Guerrero MD [address] [place] [address] [place] [address] documented as of this encounter Visit Diagnoses Not on filedocumented in this encounter Care Teams Real Estate Marketing Coordinator Relationship Specialty Start Date End Date Sen Shukla MD [address] [place] [address] PCP - General Internal Medicine 11/28/21 documented as of this encounter
== END 2025-07-31 14:48 | disposition home or self-care (01) ==
LOC: HO.ENCR 14:06
PROVIDERS: PCP Internal Medicine; Visit Provider Physician Assistant Medical
DX: E11.42 Type 2 diabetes mellitus with diabetic polyneuropathy (principal); Z79.4 Long term (current) use of insulin; E78.5 Hyperlipidemia, unspecified; Z13.9 Encounter for screening, unspecified; E11.65 Type 2 diabetes mellitus with hyperglycemia

== ENCOUNTER → 2025-07-31 14:05 | Outpatient (BNVA) | payer MEDICARE, MEDICAID, SELFPAY | PROVIDERS: PCP Internal Medicine; Visit Provider Physician Assistant Medical | DX: E11.42 Type 2 diabetes mellitus with diabetic polyneuropathy (principal); E11.65 Type 2 diabetes mellitus with hyperglycemia; Z79.4 Long term (current) use of insulin; Z79.85 Long-term (current) use of injectable non-insulin antidiabetic drugs; E78.5 Hyperlipidemia, unspecified | CPT/HCPCS: 82947; 83036; 99212 ==

== ENCOUNTER 2025-08-11 15:04 | Outpatient (AMB) | payer MEDICARE, MEDICAID, SELFPAY ==
[2025-08-11 15:07] VITALS: BP 116/76; PULSE 72; O2SAT 96; BMI 23.8
--- NOTE | 2025-08-11 15:07 | A.OFFPC_ITS ---
Vital Signs 08/11/25 15:07 Height 5 ft 5 in Weight 143 lb BMI 23.8 BP 116/76 Blood Pressure Location Lt brachial Position Sitting Pulse 72 Pulse Source Pulse Oximeter Pulse Oximetry (%) 96 Intake Visit Reasons: Hip Bone pain Allergies metformin (METFORMIN) Allergy (Severe, Verified 08/11/25 15:07) BLOATING,DIARRHEA, diarrhea Fluoxetine Allergy (Intermediate, Verified 08/11/25 15:07) Diarrhea saxagliptin (Onglyza) Allergy (Intermediate, Verified 08/11/25 15:07) Diarrhea sitagliptin (Janumet XR) Allergy (Intermediate, Verified 08/11/25 15:07) Diarrhea bee sting Allergy (Intermediate, Uncoded 07/31/25 14:16) Swelling Medication List - Last Reconciled 08/11/25 by Sen Shukla MD allopurinol 300 mg PO DAILY baclofen 20 mg PO BEDTIME blood sugar diagnostic (FreeStyle Lite Strips) 3 TIMES A DAY calcium carbonate-vit D3-min 600 mg-10 mcg (400 unit) 1 tab PO BID diclofenac sodium 1% 4 grams topical QID dulaglutide (Trulicity) 3 mg (0.5 mL) subcut QWEEK empagliflozin (Jardiance) 25 mg PO DAILY gabapentin 400 mg PO BID hydrochlorothiazide 12.5 mg PO DAILY insulin degludec (Tresiba FlexTouch U-100 insulin) 26 units (0.26 mL) subcut DAILY 90 days levothyroxine 75 mcg PO DAILY 30 days lisinopril 2.5 mg PO DAILY 90 days oxcarbazepine 600 mg PO DAILY pen needle, diabetic (BD Mar 2nd Gen Pen Needle) once a day rosuvastatin 40 mg PO DAILY 90 days venlafaxine ER 150 mg PO DAILY zoledronic hrfl-mavzadvx-cewvc 5 mg/100 mL (Reclast) 5mg intravenously; 12 months zolpidem ER 12.5 mg PO Tobacco use date assessed: 12/12/24 Fall risk assessment: No Falls in past year Last assessed Fall Risk: 08/11/25 Dental Screening Dental Screen Date: 12/12/24 HPI Hip Bone pain HPI Details History The patient is a 70-year-old female presenting for a follow-up appointment for management of chronic conditions and evaluation of a new painful hip bump. Left hip Trochanteric Bursitis: - The patient presents with a new compla int of a painful bump on her hip, which she is concerned might be her pelvic bone protruding. - The area was previously bruised after her grandson was kicking it. - The bump is painful, and the pain has not resolved. Unintentional Weight Loss: - The patient has experienced significan t, unintentional weight loss since her last visit in December. - Her weight decreased from 167 pounds i n 2021 to a recent low of 140.1 pounds, with a current weight of 143 pounds. - She reports a good appetite and denies any trying to lose weight. - The patient attributes the weight loss to significant stress from recently moving. - Her current BMI is 23.8. Hypothyroidism: - The patient is prescribed levothyroxin e 75 mcg. - Her last TSH level was checked in [facility] of the previous year, and she is due for repeat testing. Diabetes Mellitus: - The patient is followed by Dr. Severino in endocrinology for diabetes management. - Her last hemoglobin A1c was 6.7% on [place] to[place] . Hypercholesterolemia: - The patient takes rosuvastatin 40 mg f or cholesterol, which is prescribed by this office. Chronic Kidney Disease: - The patient is followed by nephrology care with Dr. Randall. - She takes lisinopril 2.5 mg for kidney protection, prescribed by this office, and hydrochlorothiazide, prescribed by her kidney doctor. Health Maintenance: - The patient has a history of smoking b ut quit approximately 12 to 15 years ago. - She had pneumonia about a month ago. - Her last colon cancer screening was a Cologuard test performed a long time ago; she has not had a colonoscopy recently due to her aversion to the preparation. - She reports normal bowel movements wit hout straining or changes in pattern. - She typically receives a flu shot and is aware of the COVID vaccine. Medications: Only medication from PCP office are Lisinopril 2.5 mg Rosuvastatin Levothyroxine Social History: - Smoking history: Former smoker, quit 1 2-15 years ago. - Functional status: Receives assistance from a personal care provider. - Stress: Reports significant stress rel ated to a recent move and dealing with her pharmacy. - Nutrition: Reports a good appetite. Problem List - Diabetes mellitus - Hypothyroidism - Hypercholesterolemia - Chronic Kidney Disease (under nephrolo gy care) - Insomnia - Unintentional weight loss - Trochanteric bursitis - History of pneumonia - History of smoking - Preventative care: Follow-up visit - Preventative care: Vaccination status - Preventative care: Colon cancer screen ing Diagnostic results - Labs: Hemoglobin A1c was 6.7% on er . - Tests: Last TSH level was from [facility] r of the previous year. [place] of Care - The patient's care team includes dago horner in nephrology , psychiatry (Dr. Coronado), endocrinology (Dr. 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 - She has upcoming appointments with [facility] umatology on September 29 and endocrinology in October. - The patient has a personal care assist ant. Plan - Trochanteric bursitis: A referral will be placed to Orthopedics at [facility] for evaluation and potential aspiration of the fluid-filled sac on her hip. - Unintentional weight loss: Will monito r weight closely. The patient was advised to prevent further weight loss from her current weight of 143 lbs. - Diagnostic testing: An order for a CBC and TSH level will be placed along with metabolic profile - Health maintenance: The importance of a colonoscopy was discussed as a necessary screening tool, particularly given her unexplained weight loss. - Vaccinations: The patient was advised to book an appointment with a pharmacy for her flu shot and COVID-19 vaccine. - Follow-up: The patient will follow up in January, possibly for a physical exam if it is due and covered by her insurance. Review of Systems General: No fever no chills neurological: No headaches no dizziness ear nose throat: No sore throat no hearing difficulty no ear pain cardiovascular: No syncope, no chest pain, no palpitations gastrointestinal: No nausea vomiting or diarrhea endocrine: No polyuria polydipsia no heat intolerance genitourinary: No dysuria skin: No new complaints Physical Exam general: No acute distress, noted weight loss since December. HEENT: No acute findings neck: Supple respiratory system: Able to talk in full sentences, no audible wheeze, no stridor cardiovascular: S1-S2 RRR gastrointestinal: No pain, bowel movements normal, no changes in pattern extremities: Trochanteric bursitis noted, fluid accumulation in bursa causing pain BALANCER: Alert, awake, oriented x3, motor sensory intact skin: Normal turgor [facility] Medical History Controlled type 2 diabetes mellitus Vitamin D deficiency Osteoarthritis Sacroiliitis Spondylosis of lumbar spine Depression, major, recurrent, moderate Renal calculi Overweight (BMI 25.0-29.9) Dyslipidemia Diabetic nephropathy associated with type 2 diabetes mellitus Diabetic neuropathy associated with type 2 diabetes mellitus [facility] (current) use of insulin Diabetes type 2, uncontrolled Diabetes mellitus Hypothyroidism Surgical History Hx of section Family History Father Cancer Mother Cancer Paternal Grandmother Diabetes Brother Mental health disorder Social History Household Members: None Housing: Apartment Alcohol intake: current Alcohol intake frequency: does not drink Patient Tobacco Use Status: Former Tobacco user Cigarettes Per Day: 20 Years Smoked: 20 e-Cigarette/Vaping Use: Never Used Substance Use Type: Former Substance User and Marijuana service: No Current occupational status: retired Cognitive needs: No Hearing needs: No Vision needs: Yes Questionnaire PHQ-9 Over the last 2 weeks, how often have you been bothered by any of the following problems? 1. Little interest or pleasure in doing things: more than half the days 2. Feeling down, depressed, or hopeless: several days 3. Trouble falling or staying asleep, or sleeping too much: several days 4. Feeling tired or having little energy: several days 5. Poor appetite or overeating: several days 6. Feeling bad about yourself - or that you are a failure or have let yourself or your family down: not at all 7. Trouble concentrating on things, such as reading the newspaper or watching television: more than half the days 8. Moving or speaking so slowly that other people could have noticed. Or the opposite - being so fidgety or restless that you have been moving around a lot more than usual: more than half the days 9. Thoughts that you would be better off or of hurting yourself in some way: not at all Total score: 10 Depression Screening Interpretation: Positive Depression Screening Follow-up: Existing condition and In treatment Depression Screening Done: Yes 33306 - PHQ-9 Billing: Yes Source: Developed by Drs. Sina May, Janeth Rincon, Jomar Wilson and colleagues, with an educational yumi from [employer]. Thrive Questionnaire Date Thrive assessed: 12/10/24 I am a: Patient What is your living situation today?: I do not have a steady places to live I choose not to answer this question Within the past 12 months, did the food you bought not last and you didn't have the money to get more?: Often true Within the past 12 months, did you worry whether your food would run out before you got money to buy more?: Often true Do you have trouble paying for medicines?: Yes Do you have trouble getting transportation to medical appointments?: Yes Do you have trouble paying your heating and electricity bill?: Yes Do you have trouble taking care of your child, family member or friend?: No Do you have trouble with day-to-day activities such as bathing, preparing meals, shopping, managing finances, etc.?: Yes Are you currently unemployed and looking for a job?: No Are you interested in more education?: Yes Currently or been in a relationship where the following occur: I choose not to answer THRIVE Score: 5 AUDIT C Alcohol Use Questionnaire (AUDIT-C) 1. How often do you have a drink containing alcohol?: Monthly or less 2. How many drinks containing alcohol do you have on a typical day when you are drinking?: 1 or 2 3. How often do you have six or more drinks on one occasion?: Never Total Score: 1 Score Reviewed/Action Taken: Yes PAULO-7 AMB Questionnaire PAULO-7 Date PAULO - 7 assessed: 12/12/24 Source: Developed by Drs. Sina May, Janeth Rincon, Jomar Wilson and colleagues, with an educational yumi from [employer]. Physical exam (Primary Care) Vital Signs: Last Vital Signs Pulse 72 08/11/25 15:07 BP 116/76 08/11/25 15:07 Pulse Ox 96 08/11/25 15:07 BMI result Body Mass Index 23.8 Tobacco/Smoking Status: Tobacco use Status Tobacco use date assessed 12/12/24 08/11/25 15:08 Patient Tobacco Use Status Former Tobacco user 08/11/25 15:08 e-Cigarette/Vaping Use Never Used 08/11/25 15:08 PHQ-9: PHQ-9 Score PHQ-9: Total score 10 08/11/25 16:04 Depression Screening Interpretation: Positive Depression Screening Follow-up: Existing condition and In treatment Thrive Assessment: Date of Thrive Assessment Date Thrive assessed 12/10/24 08/11/25 15:08 Currently or been in a relationship where the following occur: I choose not to answer Coding Level of Care Code Est Pt Level 5 (41065) Diagnoses Unintentional weight loss R63.4 Lipid disorder E78.9 Acquired hypothyroidism E03.9 Hypothyroidism type: acquired Trochanteric bursitis of left hip M70.62 Uncontrolled type 2 diabetes mellitus with hyperglycemia E11.65 Glycemic state: with hyperglycemia Controlled type 2 diabetes mellitus with diabetic polyneuropathy, with long-term current use of insulin E11.42; Z79.4 Diabetes mellitus complication detail: with polyneuropathy Diabetes mellitus complication status: with neurologic complications 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 use Diabetic polyneuropathy associated with type 1 diabetes mellitus E10.42 Diabetes mellitus complication detail: diabetic polyneuropathy Diabetes mellitus type: type 1 Vitamin D deficiency E55.9 Age-related osteoporosis with current pathological fracture, sequela M80.00XS Encounter type: sequela Osteoporosis type: age-related Presence of current pathological fracture: with current pathological fracture Diabetic nephropathy associated with type 2 diabetes mellitus E11.21 [facility] (current) use of insulin Z79.4 Additional Codes PHQ-9 - 15530 - PHQ-9 Billing: Yes ([id number]) Time Spent (min) 41 Comment Chart review/labs review/[id number] with patient and [employer]/coordination of care Assessment & Plan Assessment & Plan (1) Unintentional weight loss: Code(s): R63.4 - Abnormal weight loss Category: Medical (2) Lipid disorder: Code(s): E78.9 - Disorder of lipoprotein metabolism, unspecified Category: Medical (3) Hypothyroidism: Code(s): E03.9 - Hypothyroidism, unspecified Category: Medical Qualifiers: Hypothyroidism type: acquired Qualified Code(s): E03.9 - Hypothyroidism, unspecified (4) Trochanteric bursitis of left hip: Code(s): M70.62 - Trochanteric bursitis, left hip Category: Medical (5) Diabetes type 2, uncontrolled: Code(s): E11.65 - Type 2 diabetes mellitus with hyperglycemia Category: Medical Qualifiers: Glycemic state: with hyperglycemia Qualified Code(s): E11.65 - Type 2 diabetes mellitus with hyperglycemia (6) Controlled type 2 diabetes mellitus: Code(s): E11.9 - Type 2 diabetes mellitus without complications Category: Medical Qualifiers: Diabetes mellitus complication detail: with polyneuropathy Diabetes mellitus complication status: with neurologic complications 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 use Qualified Code(s): E11.42 - Type 2 diabetes mellitus with diabetic polyneuropathy; Z79.4 - equipment operator intermodal yard (current) use of insulin (7) Diabetic neuropathy: Code(s): E11.40 - Type 2 diabetes mellitus with diabetic neuropathy, unspecified Category: Medical Qualifiers: Diabetes mellitus complication detail: diabetic polyneuropathy Diabetes mellitus type: type 1 Qualified Code(s): E10.42 - Type 1 diabetes mellitus with diabetic polyneuropathy (8) Vitamin D deficiency: Code(s): E55.9 - Vitamin D deficiency, unspecified Category: Medical (9) Osteoporosis: Code(s): M81.0 - Age-related osteoporosis without current pathological fracture Category: Medical Qualifiers: Encounter type: sequela Osteoporosis type: age-related Presence of current pathological fracture: with current pathological fracture Qualified Code(s): M80.00XS - Age-related osteoporosis with current pathological fracture, unspecified site, sequela (10) Diabetic nephropathy associated with type 2 diabetes mellitus: Code(s): E11.21 - Type 2 diabetes mellitus with diabetic nephropathy Category: Medical (11) [facility] (current) use of insulin: Code(s): Z79.4 - equipment operator intermodal yard (current) use of insulin Category: Medical Plan Trochanteric Bursitis: - The patient presents with a new complaint of a painful bump on her hip, which she is concerned might be her pelvic bone protruding. - The area was previously bruised after her grandson was kicking it. - The bump is painful, and the pain has not resolved. Unintentional Weight Loss: - The patient has experienced significant, unintentional weight loss since her last visit in December. - Her weight decreased from 167 pounds in 2021 to a recent low of 140.1 pounds, with a current weight of 143 pounds. - She reports a good appetite and denies any trying to lose weight. - The patient attributes the weight loss to significant stress from recently moving. - Her current BMI is 23.8. Hypothyroidism: - The patient is prescribed levothyroxine 75 mcg. - Her last TSH level was checked in September of the previous year, and she is due for repeat testing. Diabetes Mellitus: - The patient is followed by Dr. Severino in endocrinology for diabetes management. - Her last hemoglobin A1c was 6.7% on July 31. Hypercholesterolemia: - The patient takes rosuvastatin 40 mg for cholesterol, which is prescribed by this office. Chronic Kidney Disease: - The patient is followed by nephrology care with Dr. Randall. - She takes lisinopril 2.5 mg for kidney protection, prescribed by this office, and hydrochlorothiazide, prescribed by her kidney doctor. Health Maintenance: - The patient has a history of smoking but quit approximately 12 to 15 years ago. - She had pneumonia about a month ago. - Her last colon cancer screening was a Cologuard test performed a long time ago; she has not had a colonoscopy recently due to her aversion to the preparation. - She reports normal bowel movements without straining or changes in pattern. - She typically receives a flu shot and is aware of the COVID vaccine. Medications: Only medication from PCP office are Lisinopril 2.5 mg Rosuvastatin Levothyroxine Social History: - Smoking history: Former smoker, quit 12-15 years ago. - Functional status: Receives assistance from a personal care provider. - Stress: Reports significant stress related to a recent move and dealing with her pharmacy. - Nutrition: Reports a good appetite. Problem List - Diabetes mellitus - Hypothyroidism - Hypercholesterolemia - Chronic Kidney Disease (under nephrology care) - Insomnia - Unintentional weight loss - Trochanteric bursitis - History of pneumonia - History of smoking - Preventative care: Follow-up visit - Preventative care: Vaccination status - Preventative care: Colon cancer screening Diagnostic results - Labs: Hemoglobin A1c was 6.7% on July 31. - Tests: Last TSH level was from September of the previous year. [place] of Care - The patient's care team includes specialists in nephrology , psychiatry (Dr. Coronado), endocrinology (Dr. 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 - She has upcoming appointments with rheumatology on September 29 and endocrinology in October. - The patient has a personal development mentor. Plan - Trochanteric bursitis: A referral will be placed to Orthopedics at [facility] for evaluation and potential aspiration of the fluid-filled sac on her hip. - Unintentional weight loss: Will monitor weight closely. The patient was advised to prevent further weight loss from her current weight of 143 lbs. - Diagnostic testing: An order for a CBC and TSH level will be placed along with metabolic profile - Health maintenance: The importance of a colonoscopy was discussed as a necessary screening tool, particularly given her unexplained weight loss. - Vaccinations: The patient was advised to book an appointment with a pharmacy for her flu shot and COVID-19 vaccine. - Follow-up: The patient will follow up in January, possibly for a physical exam if it is due and covered by her insurance. Orders: Orders Complete Blood Count Auto Diff Today E03.9 - Hypothyroidism, unspecified, E11.65 - Type 2 diabetes mellitus with hyperglycemia, E78.9 - Disorder of l ipoprotein metabolism, unspecified Comprehensive Met. Panel Today E03.9 - Hypothyroidism, unspecified, E78.9 - Disorder of lipoprotein metabolism, unspecified TSH reflex Free T4 Today E03.9 - Hypothyroidism, unspecified, E78.9 - Disorder of lipoprotein metabolism, unspecified Referrals Orthopedics Referral M70.62 - Trochanteric bursitis, left hip
--- OUTSIDE RECORDS SUMMARY | 2025-08-11 18:02 | XMS_ITS | Clinical Summary ---
Author Organization [facility], Address [address] [place] [address] [place] [address] Phone Care Team Providers Care Chief Projectionist Name Role Phone Sen Shukla MD Primary Care Provider [phone] Allergies Active Allergy Reactions Criticality Noted Date [...] Office Visit [facility], [address] [place] [phone] Maxwell Guerrero MD Stage 3a chronic kidney [...] Visit [facility], [address] [phone] Maxwell Guerrero MD [address] [place] [address] [place] [phone] Health Maintenance Due Date Last Done Comments Breast Cancer Screening 1955 Colorectal Cancer Screening: Annual FOBT 2004 Colorectal Cancer Screening: Colonoscopy 2004 Colorectal Cancer Screening: Sigmoidoscopy 2004 Diabetes: Ophthalmology Exam 09/22/2019 Diabetes: Pedal Pulse Checked 09/22/2019 Diabetes: Sensory Foot Exam 09/22/2019 Diabetes: Visual Foot Exam 09/22/2019 Pneumococcal Vaccine: 50+ Years (3 of 3 - PCV20 or PCV21) 07/22/2020 08/03/2016, 07/22/2015 Influenza Vaccine (#1) 2025 Diabetes: Hemoglobin A1C 10/30/2025 07/30/2025 Pneumococcal Vaccine: Peds ( 0 to 5 [...] to Culture (07/30/2025 1:45 PM EDT) Specific [place], Urine 1.025 1.005 - 1.030 [facility] pH Urine 6.0 5.0 - 7.5 [facility] Color, Urine Yellow Yellow [facility] Appearance Urine Clear Clear [facility] WBC Esterase Urine Negative Negative [facility] Protein, Ur Negative Negative/Tra ce [facility] [phone] Glucose, Ur 3+(A) Negative [facility] Ketones, Urine Negative Negative [facility] Blood Urine Negative Negative [facility] Bilirubin Urine Negative Negative [facility] [phone] Urobilinogen Urine 0.2 0.2 - 1.0 mg/dL [facility] Nitrite, Urine Negative Negative [facility] Microscopic Examination Comment [facility] Comment:Microscopic follows if indicated. Other Microsc. Observations See below: [facility] Comment:Microscopic was lissy cated and was performed. URINALYSIS REFLEX Comment [facility] Comment:This specimen will n ot reflex to a Urine Culture. 07/30/2025 1:45 PM EDT 07/30/2025 us Maxwell Guerrero MD LAB URINE ORDERABLES Final Re sult [facility] [address] [place] [address] * Microscopic Examination (07/30/2025 1:45 PM EDT) WBC, Urine None seen 0 - 5 /hpf [facility] RBC, Urine None seen 0 - 2 /hpf [facility] Squamous Epithelial, Urine None seen 0 - 10 /hpf [facility] Casts None seen None seen /lpf [facility] Bacteria, Urine None seen None seen/Few [facility] 07/30/2025 1:45 PM EDT 07/30/2025 Maxwell Guerrero MD LAB MICROBIOLOGY - GENERAL OR DERABLES Final Result Performing Organization Address [facility]/ZIP Co de Phone Number [facility] [address] [place] [address] * Urine Albumin / Creatinine Ratio (07/30/2025 1:45 PM EDT) Creatinine, Ur 24.6 Not Estab. mg/dL [facility] Albumin, Urine <3.0 Not Estab. ug/mL [facility] Albumin/Creatin ine Ratio <12 0 - 29 mg/g creat [facility] Comment: Normal: 0 - 29 Moderately increased: 30 - 300 Severely increased: >300 07/30/2025 1:45 PM EDT 07/30/2025 Maxwell Guerrero MD LAB URINE ORDERABLES Final Re sult Performing Organization Address City/[facility]/ZIP Co de Phone Number [facility] [address] [place] [address] * CBC (07/30/2025 1:45 PM EDT) WBC 4.2 3.4 - 10.8 x10E3/uL [facility] RBC 4.63 3.77 - 5.28 x10E6/uL [facility] Hemoglobin 13.8 11.1 - 15.9 g/dL [facility] Hematocrit 42.6 34.0 - 46.6 % [facility] MCV 92 79 - 97 fL [facility] MCH 29.8 26.6 - 33.0 pg [facility] MCHC 32.4 31.5 - 35.7 g/dL [facility] RDW 12.3 11.7 - 15.4 % [facility] Platelets 208 150 - 450 x10E3/uL [facility] 07/30/2025 1:45 PM EDT 07/30/2025 Maxwell Guerrero MD LAB BLOOD ORDERABLES Final Re [facility]ult [facility] [address] [place] [address] * (ABNORMAL) Hemoglobin A1c (07/30/2025 1:45 PM EDT) Hemoglobin A1C 6.6(H) 4.8 - 5.6 % [facility] Comment: Prediabetes: 5.7 - 6.4 Diabetes: >6.4 Glycemic control for adults with diabetes: <7.0 07/30/2025 1:45 PM EDT 07/30/2025 Maxwell Guerrero MD LAB BLOOD ORDERABLES Final Re sult Performing Organization Address City/[facility]/ZIP Co de Phone Number [facility] [address] [place] [address] * (ABNORMAL) Basic Metabolic Panel (07/30/2025 1:45 PM EDT) Glucose 202(H) 70 - 99 mg/dL [facility] BUN 17 8 - 27 mg/dL [facility] Creatinine 0.76 0.57 - 1.00 mg/dL [facility] eGFR CKD-EPI CR 2020 84 >59 mL/min/1.7 3 [facility] BUN/Creatinine Ratio 22 12 - 28 [facility] Sodium 140 134 - 144 mmol/L [facility] Potassium 3.9 3.5 - 5.2 mmol/L [facility] Chloride 100 96 - 106 mmol/L [facility] Bicarbonate (CO2) 27 20 - 29 mmol/L [facility] Calcium 9.3 8.7 - 10.3 mg/dL [facility] 07/30/2025 1:45 PM EDT 07/30/2025 Maxwell Guerrero MD LAB BLOOD ORDERABLES Final Re sult [facility] [address] [place] [address] from Last 3 Months Insurance * Guarantor: Coral Herrera Account Type Relation to Patient Date of Phone Billing Address Personal/Family Self 1955 [address] [place] [address] Medicaid [place] Medicare Care Teams Chief Projectionist Relationship Specialty Start Date End Date Sen Shukla MD [address] [place] [address] PCP - General Internal Medicine 11/28/21
--- OUTSIDE RECORDS SUMMARY | 2025-08-11 18:02 | XMS_ITS | Encounter Summary ---
Author Organization [facility] Address [address] [place] [address] Phone Care Team Providers Care Software Configuration Specialist Name Role Phone Sen Shukla MD Primary Care Provider [phone] Encounter Details Date Type Department Care Team (Late st Contact Info) Description 11/28/2021 Documentation Only [facility] [address] [place] [address] Carrie Michele [address] [place] [address] Social History Tobacco Use Types [...] Visit [facility] [address] [place] [address] Maxwell Guerrero MD [address] [place] [address] [place] [address] documented as of this encounter Visit Diagnoses Not on filedocumented in this encounter Care Teams Software Configuration Specialist Relationship Specialty Start Date End Date Sen Shukla MD [address] [place], [place] [phone] PCP - General Internal Medicine 11/28/21 documented as of this encounter
--- OUTSIDE RECORDS SUMMARY | 2025-08-11 18:02 | XMS_ITS | Encounter Summary ---
Author Organization [facility] Address [address] [place] [address] Phone Care Team Providers Care Seasonal Driver Name Role Phone Sen Shukla MD Primary Care Provider [phone] Reason for Visit * Reason Comments Med Refill Encounter Details Date Type Department Care Team (Late st Contact Info) Description 07/09/2023 Refill [facility] [address] [place] [address] Sascha Pressley MD Social History [...] Visit [facility] [address] [place] [address] Maxwell Guerrero MD [address] [place] [address] [place] [address] documented as of this encounter Visit Diagnoses Not on filedocumented in this encounter Care Teams Seasonal Driver Relationship Specialty Start Date End Date Sen Shukla MD [address] [place] [address] PCP - General Internal Medicine 11/28/21 documented as of this encounter
--- OUTSIDE RECORDS SUMMARY | 2025-08-11 18:02 | XMS_ITS | Encounter Summary ---
Author Organization [facility] Address [address] [place] [address] Phone Care Team Providers Care Venue Manager Name Role Phone Sen Shukla MD Primary Care Provider [phone] Encounter Details Date Type Department Care Team (Late st Contact Info) Description 11/29/2021 Documentation Only [facility] [address] [place] [address] Carrie Michele [address] [place] [address] Social History Tobacco Use Types [...] Visit [facility] [address] [place] [address] Maxwell Guerrero MD [address] [place] [address] [place] [address] documented as of this encounter Visit Diagnoses Not on filedocumented in this encounter Care Teams Venue Manager Relationship Specialty Start Date End Date Sen Shukla MD [address] [place], [place] [phone] PCP - General Internal Medicine 11/28/21 documented as of this encounter
--- OUTSIDE RECORDS SUMMARY | 2025-08-11 18:02 | XMS_ITS | Clinical Summary ---
Author Organization [facility] Address [address] [id number] Care Team Providers Care Boiler Out Name Role Phone Antoinette Fox DO Primary Care Provider [phone] Allergies Active Allergy Reactions Criticality Noted Date [...] age to complete this topic Care Teams Boiler Out Relationship Specialty Start Date End Date Antoinette Fox DO PCP - General Family Medicine 12/11/17
--- OUTSIDE RECORDS SUMMARY | 2025-08-11 18:02 | XMS_ITS | Clinical Summary ---
Author Organization [facility] Address [address] [place] [address] Phone Care Team Providers Care Cloth Drier Name Role Phone System, Provider Not In [...] file Insurance MEDICARE PART A & B [facility] MEDICARE PART A & B [place] [facility] [place] & B HEALTH MEDICARE PART A & B HEALTH Care Teams Cloth Drier Relationship Specialty Start Date End Date System, Provider Not In, PhD [address] [address] PCP - General 01/01/18 Additional Source Comments The information contained in this document represents components of the legal health record. It is not the complete legal health record.[facility]
--- OUTSIDE RECORDS SUMMARY | 2025-08-11 18:02 | XMS_ITS | Encounter Summary ---
Author Organization [facility] Address [address] [place] [address] Phone Care Team Providers Care Customer Business Manager Name Role Phone Sen Shukla MD Primary Care Provider [phone] Encounter Details Date Type Department Care Team (Late st Contact Info) Description 09/08/2024 Documentation Only [facility] [address] [place] [address] Carrie Michele [address] [place] [address] Social History Tobacco Use Types [...] Visit [facility] [address] [place] [address] Maxwlel Guerrero MD [address] [place] [address] [place] [address] documented as of this encounter Visit Diagnoses Not on filedocumented in this encounter Care Teams Customer Business Manager Relationship Specialty Start Date End Date Sen Shukla MD [address] [place], [place] [phone] PCP - General Internal Medicine 11/28/21 documented as of this encounter
== END 2025-08-11 15:37 | disposition home or self-care (01) ==
LOC: HO.HMCC 15:06
PROVIDERS: PCP Internal Medicine; Visit Provider Internal Medicine
DX: R63.4 Abnormal weight loss (principal); E78.9 Disorder of lipoprotein metabolism, unspecified; E03.9 Hypothyroidism, unspecified; M70.62 Trochanteric bursitis, left hip; E11.65 Type 2 diabetes mellitus with hyperglycemia; E11.42 Type 2 diabetes mellitus with diabetic polyneuropathy; Z79.4 Long term (current) use of insulin; E55.9 Vitamin D deficiency, unspecified; M80.00XS Age-related osteoporosis with current pathological fracture, unspecified site, sequela; E11.21 Type 2 diabetes mellitus with diabetic nephropathy

== ENCOUNTER → 2025-08-11 15:04 | Outpatient (BNVA) | payer MEDICARE, MEDICAID, SELFPAY | PROVIDERS: PCP Internal Medicine; Visit Provider Internal Medicine | DX: R63.4 Abnormal weight loss (principal); E78.9 Disorder of lipoprotein metabolism, unspecified; E03.9 Hypothyroidism, unspecified; M70.62 Trochanteric bursitis, left hip; E11.65 Type 2 diabetes mellitus with hyperglycemia; E11.42 Type 2 diabetes mellitus with diabetic polyneuropathy; Z79.4 Long term (current) use of insulin; M80.00XS Age-related osteoporosis with current pathological fracture, unspecified site, sequela; E11.21 Type 2 diabetes mellitus with diabetic nephropathy | CPT/HCPCS: 96127; 99212 ==

== ENCOUNTER 2025-09-11 08:10 | Outpatient (REF) | payer MEDICARE, MEDICAID, SELFPAY ==
--- NOTE | ~2025-09-11 | XR_ITS ---
EXAMINATION: XR HIP, LEFT CLINICAL INFORMATION: M25.559 - Pain in unspecified hip COMPARISON: None available. TECHNIQUE: AP view pelvis. AP and oblique views of the left hip. FINDINGS: Degenerative changes in the symphysis pubis in the inferior aspect of the sacroiliac joints. No acute cortical disruption in the bony pelvis. No acute cortical disruption or malalignment, left coxofemoral joint. No lytic or blastic lesions. XR/XR hip LT min 2V IMPRESSION: No gross degenerative changes in the left hip. Degenerative changes symphysis pubis. Electronically signed by: Bienvenido Lewis MD 09/11/2025 09:56 AM [facility]
--- OUTSIDE RECORDS SUMMARY | 2025-09-11 08:31 | XMS_ITS | Clinical Summary ---
Author Organization [facility] Prior to 03/07/[address] [place], [place] [phone] Care Team Providers Care Knife Operator Name Role Phone Antoinette Fox Primary Care Provider [phone] Allergies Active Allergy Reactions Criticality Noted Date [...] exam Overview: 01/2015: No DR, 03/2016 No , 04/[address] Barboza Bipolar 1 [...] age to complete this topic Care Teams Knife Operator Relationship Specialty Start Date End Date Antoinette Fox DO PCP - General Family Medicine 12/11/17
--- OUTSIDE RECORDS SUMMARY | 2025-09-11 08:31 | XMS_ITS | Clinical Summary ---
Author Organization [facility] Address [address] [place] [address] Phone Care Team Providers Care Botanical Technical Officer Name Role Phone System, Provider Not In [...] file Insurance MEDICARE PART A & B [facility] MEDICARE PART A & B [place] A & B [facility] MEDICARE PART A & [place] A & B HEALTH MEDICARE PART A & B HEALTH Care Teams Botanical Technical Officer Relationship Specialty Start Date End Date System, Provider Not In, PhD [address] [address] PCP - General 01/01/18 Additional Source Comments The information contained in this document represents components of the legal health record. It is not the complete legal health record.[facility]
== END 2025-09-11 08:11 | disposition home or self-care (01) ==
LOC: HO.HOSX 08:10
PROVIDERS: Visit Provider Physician Assistant
DX: M70.62 Trochanteric bursitis, left hip (principal)
CPT/HCPCS: 73502

== ENCOUNTER 2025-09-11 09:41 | Outpatient (AMB) | payer MEDICARE, MEDICAID, SELFPAY ==
--- NOTE | 2025-09-11 09:57 | MHC.OFFVIS ---
Intake Visit Reasons: New Pt - left hip pain Intake Note: Coral is a 70 year old female who presents today as a new patient for a evaluation of her left hip pain. HX fo falls but not on the left hip. Patient reports ongoing pain for a couple months. She states that she notices her hip poking out for about a month. Patient notices that her pain is on the lateral aspect of the hip. Patient mentions that her pain is worse with movement. Allergies metformin (METFORMIN) Allergy (Severe, Verified 09/11/25 10:02) BLOATING,DIARRHEA, diarrhea Fluoxetine Allergy (Intermediate, Verified 09/11/25 10:02) Diarrhea saxagliptin (Onglyza) Allergy (Intermediate, Verified 09/11/25 10:02) Diarrhea sitagliptin (Janumet XR) Allergy (Intermediate, Verified 09/11/25 10:02) Diarrhea bee sting Allergy (Intermediate, Uncoded 07/31/25 14:16) Swelling HPI HPI New Pt - left hip pain: Details: Ms. Javier brower is a 70-year-old female who presents to the office today with lateral-sided left hip pain that is atraumatic in nature. She reports that roughly 1 month ago she began to notice swelling and pain located on the lateral aspect of her left hip. Ever since then her pain has waxed and waned. She reports pain is worse with ambulation and lying on her left side. [facility] Medical History Controlled type 2 diabetes mellitus Vitamin D deficiency Osteoarthritis Sacroiliitis Spondylosis of lumbar spine Depression, major, recurrent, moderate Renal calculi Overweight (BMI 25.0-29.9) Dyslipidemia Diabetic nephropathy associated with type 2 diabetes mellitus Diabetic neuropathy associated with type 2 diabetes mellitus long-term (current) use of insulin Diabetes type 2, uncontrolled Diabetes mellitus Hypothyroidism Surgical History Hx of section Family History Father Cancer Mother Cancer Paternal Grandmother Diabetes Brother Mental health disorder Social History Household Members: None Housing: Apartment Alcohol intake: current Alcohol intake frequency: does not drink Patient Tobacco Use Status: Former Tobacco user Cigarettes Per Day: 20 Years Smoked: 20 e-Cigarette/Vaping Use: Never Used Substance Use Type: Former Substance User and Marijuana service: No Current occupational status: retired Cognitive needs: No Hearing needs: No Vision needs: Yes Review of Systems Const All systems reviewed & are unremarkable except as noted in HPI and below Physical Exam Const General: cooperative, healthy appearing and no acute distress Resp Effort & Inspection: normal respiratory effort and able to speak in complete sentences Extrem Other: Left hip: Normal to inspection. Full hip ROM in all planes. Tenderness to palpation over the greater trochanteric bursa. 5/5 strength with resisted hip flexion, knee extension, abduction, and abduction. Able to perform straight leg raise. NVI. Psych Appearance: grossly normal Mental Status: mental status grossly normal Attitude: cooperative Office Procedures AMB Joint Injection/Aspiration Joint Injection/Aspiration Primary Site: Left Trochanteric Bursa Prep: site was prepped using aseptic technique, ethochloride spray was applied and injection warnings given Injected: 40 mg of, Decadron, with 3 mL of, 1% plain Lidocaine, 0.25% Bupivacaine and Other (greater trochanterc bursa ) Approach Used: other (lateral) Procedure: The patient tolerated the procedure well, but had some pain with the injection and there was some relief with the local anesthesia Coding 27773 - Glenohumeral/Tronchanteric Bursa/Intraarticular Procedure code (CPT) selection complete Assessment & Plan Assessment & Plan (1) Trochanteric bursitis of left hip: Code(s): M70.62 - Trochanteric bursitis, left hip Category: Medical Plan Ms. Herrera this is a 70-year-old female who presents to the office today with lateral-sided left hip pain that is atraumatic in nature. She reports that roughly 1 month ago she began to notice swelling and pain located on the lateral aspect of her left hip. Ever since then her pain has waxed and waned. She reports pain is worse with ambulation and lying on her left side. The patient was offered a cortisone injection in the left hip greater trochanteric bursa. The patient was explained the risks, benefits, and alternatives to receiving this injection. After receiving consent for the injection, the patient had the procedure done while in the office today. The patient tolerated the procedure well with no complications. The risks, benefits, and alternatives to a corticosteroid injection were discussed with the patient, including the potential benefits of decreased inflammation and pain, improved function, and diagnostic value. Risks were reviewed, including post-injection flare, skin or fat atrophy, transient facial flushing, temporary elevation in blood glucose, bruising, and rare but serious complications such as infection, tendon weakening or rupture, and cartilage damage with repeated injections. Procedure-related discomfort and possible vasovagal symptoms were also explained. Alternatives were reviewed, including NSAIDs, physical therapy, activity modification, bracing, ice/heat, weight management, hyaluronic acid injections when appropriate, PRP or other orthobiologics, oral steroids, surgery depending on pathology, and observation. The patient verbalized understanding and elected to proceed. After receiving consent for the injection, the patient had the procedure done while in the office today. The patient tolerated the procedure well with no complications. Due to the patient?s history of diabetes, they were instructed to monitor their blood glucose level. The patient was informed that they could see a rise in their numbers and if the numbers became too high, they were instructed to call their PCP. Follow-up will be PRN, or sooner if needed X-rays of the left hip and pelvis which were obtained while in the office today and were reviewed by me, Patricia Reddy PA-C, revealed no acute fracture or dislocation. Orders: Orders XR hip LT min 2V Today M25.559 - Pain in unspecified hip Coding Level of Care Code New Pt Level 4 (62769) Complex visit Add On G2211 Diagnoses Trochanteric bursitis of left hip M70.62 CPT Codes Coding - Joint 7: 84006 - Glenohumeral/Tronchanteric Bursa/Intraarticular ([id number])
== END 2025-09-11 10:27 | disposition home or self-care (01) ==
LOC: HO.HOS 09:42
PROVIDERS: PCP Internal Medicine; Visit Provider Physician Assistant
DX: M70.62 Trochanteric bursitis, left hip (principal)
CPT/HCPCS: 20610; 99214

== ENCOUNTER → 2025-09-11 09:46 | Outpatient (BNV) | payer MEDICARE, MEDICAID, SELFPAY | PROVIDERS: Visit Provider Radiology Diagnostic Radiology | DX: M16.12 Unilateral primary osteoarthritis, left hip (principal) | CPT/HCPCS: 73502 ==